=== PATIENT | male | born 1950 | race Caucasian/White ===

== ENCOUNTER 2022-02-02 17:54 | Inpatient (IN) ==
[2022-02-02] MEDS ORDERED: SUCCINYLCHOLINE CHLORIDE 20 MG/ML 10 ML VIAL IV ONE (17:56)
[2022-02-02] MEDS ORDERED: RAPID SEQUENCE INDUCTION BAG ONE (17:58)
[2022-02-02] MEDS ORDERED: LORazepam 2 MG/1 ML VIAL ONE (17:59)
[2022-02-02] MEDS ORDERED: SODIUM BICARB 8.4% INJ 50 MEQ/50 ML SYR IV ONE (17:59)
[2022-02-02] MEDS ORDERED: ATROPINE SULFATE 0.1 MG/ML 5ML SYR IV ONE (18:04)
[2022-02-02] MEDS ORDERED: VECURONIUM BROMIDE 10 MG VIAL IV ONE (18:04)
[2022-02-02] MEDS ORDERED: SODIUM CHLORIDE 0.9% 1000ML 1,000 ML IV STA (18:11)
[2022-02-02 18:19] LABS: iSTAT Creatinine 1.4 mg/dl (0.6-1.3); iSTAT Hemoglobin 14.6 g/dl (14.0-18.0); iSTAT Ionized Calcium 1.16 mmol/l (1.12-1.32); iSTAT Potassium 4.2 mmol/L (3.3-5.0)
[2022-02-02] MEDS ORDERED: STAT IV Infusion **Titration per Protocol STA ×5 (18:29→21:36)
[2022-02-02] MEDS ORDERED: fentaNYL citrate 100 MCG/2 ML VIAL ONE (18:30)
[2022-02-02] MEDS ORDERED: niCARdipine HCL INJ 2.5 MG/ML 10 ML AMP ONE (18:30)
[2022-02-02] MEDS ORDERED: HEPARIN (PORCINE) 1000 UNIT/ML 10 ML (CATH LAB USE ONLY) ONE ×2 (18:30→19:17)
[2022-02-02] MEDS ORDERED: MIDAZOLAM HCL 1 MG/ML 2ML VIAL ONE (18:30)
[2022-02-02] MEDS ORDERED: NITROGLYCERIN/D5W 100MCG/ML 20ML SYR ONE (18:31)
[2022-02-02 18:33] LABS: Hemoglobin 15.3 g/dL (14.0-18.0); Mean Corpuscular Hemoglobin 33.4 pg (25-34); Mean Corpuscular Hgb Conc 34.8 g/dL (32-36); Mean Corpuscular Volume 96.1 fL (80-100); Mean Platelet Volume 10.6 fL (7.4-10.4); Platelet Count 248 K/uL (130-400); RDW Coefficient of Variation 13.5 % (11.5-14.5); RDW Standard Deviation 47.3 fL (36.4-46.3); Red Blood Count 4.58 M/uL (4.7-6.1); White Blood Count 17.12 K/uL (4.8-10.8)
--- NOTE | 2022-02-02 18:39 | XRay Report ---
SINGLE VIEW CHEST CLINICAL HISTORY: Atypical chest pain. CODE BLUE. FINDINGS: An AP, portable, supine chest radiograph is obtained No prior studies are available for allison palomares at the time of dictation. An endotracheal tube has been placed. The tip projects approximatel y 4.5 cm above the maya. A left subclavian central venous catheter is in place. The tip projects ov er the SVC. The heart is mildly enlarged noting atherosclerotic calcification of the thoracic aorta. There is pulmonary vascular congestion. Mild bilateral airspace opacities likely represent pulmonary edema. No large pleural effusion or pneumothorax is seen. The skeletal structures are osteopenic. The bony thorax is grossly intact. An indeterminant round density projects over the left axilla. This ma y be external to the patient. IMPRESSION: 1. An endotracheal tube has been placed as above. A central venous catheter is also in place. 2. Cardiomegaly with pulmonary vascular congestion. 3. Bilateral airspace opacities likely represent pulmonary edema. Clinical correlation will be requir ed. ACT 112: Negative or not required by law. Electronically signed by: Rahul Culver M.D. 02/02/2022 6:37 PM
[2022-02-02 18:42] LABS: Partial Thromboplastin Ratio 0.9; Partial Thromboplastin Time 26.1 Seconds (21.0-31.0); Prothrombin Time 10.8 Seconds (9.0-12.0)
--- NOTE | 2022-02-02 18:47 | Emergency Department Note ---
History of Present Illness General Chief complaint: Cardiac Arrest/CPR Stated complaint: cardiac arrest History of Present Illness 71-year-old male presents to the ED with a chief complaint of cardiac arrest. The patient was reportedly found down by bystanders in front of a local alf. He was not a resident there. The patient had CPR started shortly after he was found down. CPR was in progress for about 11 minutes prior to EMS arrival. During EMS interaction, he did require 1 defibrillation and 2 mg of IV epinephrine and ROSC was achieved. He required a second defibrillation in route and was given 150 mg IV amiodarone by EMS. He arrives with a pulse and blood pressure. He is not intubated. They are bagging him with a [id number]. No additional information is available. Past history is unknown. His license states that he is from the [facility]. Past Med/Surg History Social History Smoking Status: Unknown if ever smoked Feels Safe at Home: Yes Review of Systems Unobtainable due to cognitive status and Unobtainable due to endotracheal tube Physical Exam Vital Signs Vital Signs - 24 hr 02/02/22 17:47 02/02/22 17:55 02/02/22 18:05 Temperature 36 C L Temperature Source Pyle Cath ( Temp Sensing) Pulse Rate 43 L 36 L Pulse Rate from SpO2 Sensor Respiratory Rate 20 24 Blood Pressure 79/59 L Blood Pressure Mean 65 Blood Pressure Position Lying Pulse Oximetry 93 Oxygen Delivery Method Mechanical Vent Mechanical Vent Fraction of Inspired Oxygen Sepsis Recent Fever Within 48 Hours No Sepsis New/Unexplained Change in Mental Status N/A Sepsis Action Taken by Nursing No Action Required End-Tidal CO2 02/02/22 18:06 02/02/22 18:10 02/02/22 18:11 Temperature Temperature Source Pulse Rate 53 L 85 Pulse Rate from SpO2 Sensor 62 Respiratory Rate 20 20 Blood Pressure 79/59 L 198/130 H Blood Pressure Mean 65 152 Blood Pressure Position Pulse Oximetry 100 Oxygen Delivery Method Mechanical Vent Fraction of Inspired Oxygen Sepsis Recent Fever Within 48 Hours Sepsis New/Unexplained Change in Mental Status Sepsis Action Taken by Nursing End-Tidal CO2 31 02/02/22 18:15 02/02/22 18:16 02/02/22 18:20 Temperature Temperature Source Pulse Rate 53 L 48 L 94 H Pulse Rate from SpO2 Sensor 97 H Respiratory Rate 25 H 18 24 Blood Pressure 108/64 148/97 H Blood Pressure Mean 78 114 Blood Pressure Position Pulse Oximetry 99 Oxygen Delivery Method Fraction of Inspired Oxygen Sepsis Recent Fever Within 48 Hours Sepsis New/Unexplained Change in Mental Status Sepsis Action Taken by Nursing End-Tidal CO2 31 26 49 02/02/22 18:25 02/02/22 18:30 02/02/22 18:35 Temperature Temperature Source Pulse Rate 96 H 99 H 104 H Pulse Rate from SpO2 Sensor 97 H 95 H 104 H Respiratory Rate 24 24 24 Blood Pressure 147/100 H 147/104 H 155/109 H Blood Pressure Mean 115 118 124 Blood Pressure Position Pulse Oximetry 96 95 93 Oxygen Delivery Method Fraction of Inspired Oxygen Sepsis Recent Fever Within 48 Hours Sepsis New/Unexplained Change in Mental Status Sepsis Action Taken by Nursing End-Tidal CO2 37 37 38 02/02/22 18:40 02/02/22 18:59 Temperature Temperature Source Pulse Rate 98 H 100 H Pulse Rate from SpO2 Sensor 99 H Respiratory Rate 24 24 Blood Pressure 168/111 H Blood Pressure Mean 130 Blood Pressure Position Pulse Oximetry 92 97 Oxygen Delivery Method Fraction of Inspired Oxygen 40 Sepsis Recent Fever Within 48 Hours Sepsis New/Unexplained Change in Mental Status Sepsis Action Taken by Nursing End-Tidal CO2 37 38 CONSTITUTIONAL/VITAL SIGNS: Reviewed / noted above. GENERAL: Non-toxic in appearance. INTEGUMENTARY: Warm, dry, and [place]. HEAD: Normocephalic. ENT/OROPHARYNX: The patient has frothy mucous the airway. RESPIRATORY: Clear to auscultation bilaterally. No increased work of breathing. CARDIOVASCULAR: Regular rate and rhythm. Femoral pulse present. GI/ABDOMEN: Soft EXTREMITIES: No obvious trauma. NEUROLOGICAL: Prior to sedation and paralyzation, the patient was biting down on the endotracheal tube and breathing spontaneously. Moves extremities minimally. MUSCULOSKELETAL: Normally developed. TRIAGE NURSING DOCUMENTATION REVIEWED. Procedures Intubation Time out performed: Yes sedative: other (Ativan 2 mg IV) Mg Given: 2 paralytic: Succinylcholine Mg Given: 100 Laryngoscope: fiber optic video scope Assist Device Used: fiber optic device ET Tube Size: 7.5 ET Tube Uncuffed: No Tube Secured Depth (cm): 22 Tube Secured Location: lips Tube Placement Confirmation: visualized tube passing through cords, equal breath sounds bilaterally, no breath sounds over epigastrium and confirmation by capnometry Patient Tolerated Procedure: well and no complications Intubation Complications: none Course Administered Medications Epinephrine HCl () 4 mg in 254 mls @ 6.157 mls/hr IV .Q24H OLIVE; Protocol Stop: 03/04/22 18:59 Last Titration: 02/02/22 18:18 Dose: 0.04 mcg/kg/min, 12.3 mls/hr Documented by: [id number] Admin: 02/02/22 18:15 Dose: 0.01 mcg/kg/min, 3.1 mls/hr Documented by: [id number] Cosigned by: [id number] Discontinued Medications Atropine Sulfate (Atropine Sulfate 0.1 Mg/Ml 5ml Syr) Confirm Administered Dose 0.5 mg IV .STK-MED ONE Stop: 02/02/22 18:05 Last Admin: 02/02/22 18:52 Dose: Not Given Documented by: [id number] Sodium Chloride (Nss 1000ml) 1,000 mls @ 999 mls/hr IV .Q1H1M STA Stop: 02/02/22 19:11 Last Admin: 02/02/22 18:11 Dose: 999 mls/hr Documented by: [id number] Lorazepam (Lorazepam 2 Mg/1 Ml Vial) Confirm Administered Dose 2 mg .ROUTE .STK- MED ONE Stop: 02/02/22 18:00 Last Admin: 02/02/22 18:01 Dose: 2 mg Documented by: [id number] Miscellaneous (Rapid Sequence Induction Bag) Confirm Administered Dose 1 ea .ROUTE .STK-MED ONE Stop: 02/02/22 17:59 Last Admin: 02/02/22 18:52 Dose: 1 ea Documented by: [id number] Vecuronium Godwin (Vecuronium Godwin 10 Mg Vial) Confirm Administered Dose 10 mg IV .STK-MED ONE Stop: 02/02/22 18:05 Last Admin: 02/02/22 18:16 Dose: 10 mg Documented by: [id number] Cosigned by: [id number] Critical Care Time Critical Care Time: Yes Total Critical Care Time: 45 I have personally spent 45 minutes of critical care time in the direct management of this patient. This includes bedside care, interpretation of diagnostic studies, and testing, discussion with consultants, patient, and family members, and other required patient management activities. This 45 minutes is in excess of all separately billable procedures. Medical Decision Making Differential Diagnosis Differential includes acute cardiac dysrhythmia, microinfarction, CVA, TIA, dehydration, anemia, electrolyte disturbance, seizure, trauma, intracranial bleeding, acute vascular catastrophe, thoracic aortic dissection, PE, abdominal aortic aneurysm rupture, infection, hypoglycemia, overdose, trauma. Medical Records Attestation: I reviewed the patient's medical records. Home Medications Current Medication List: was personally reviewed by me Laboratory Data Attestation: I reviewed the patient's lab results. Result diagrams: 02/02/22 17:25 02/02/22 17:25 Lab Results 02/02/22 02/02/22 02/02/22 Range/Units 17:25 17:25 17:25 WBC 17.12 H (4.8-10.8) K/uL RBC 4.58 L (4.7-6.1) M/uL Hgb 15.3 (14.0-18.0) g/dL POC Hgb (14.0-18.0) g/dl Hct 44.0 (42-52) % POC Hct (42-52) % MCV 96.1 (80-100) fL MCH 33.4 (25-34) pg MCHC 34.8 (32-36) g/dL RDW Std Deviation 47.3 H (36.4-46.3) fL RDW Coeff of Vilma 13.5 (11.5-14.5) % Plt Count 248 (130-400) K/uL MPV 10.6 H (7.4-10.4) fL Immature Gran % (Auto) 0.7 % Neut % (Auto) 40.2 % Lymph % (Auto) 48.1 % [place] % (Auto) 7.5 % Eos % (Auto) 3.2 % Baso % (Auto) 0.3 % Neut # (Auto) 6.89 H (1.4-6.5) K/uL Lymph # (Auto) 8.24 H (1.2-3.4) K/uL [place] # (Auto) 1.28 H (0.11-0.59) K/uL Eos # (Auto) 0.54 H (0-0.5) K/uL Baso # (Auto) 0.05 (0-0.2) K/uL Immature Gran # (Auto) 0.12 H (0.00-0.02) K/uL PT 10.8 (9.0-12.0) Seconds INR 1.0 (0.9-1.1) APTT 26.1 (21.0-31.0) Seconds PTT Ratio 0.9 POC Sodium (135-144) mmol/L Sodium (136-145) mmol/L POC Potassium (3.3-5.0) mmol/L Potassium (3.5-5.1) mmol/L POC Chloride (101-112) mmol/L Chloride (98-107) mmol/L Carbon Dioxide (21-32) mmol/L POC Total CO2 (24-31) mmol/L Anion Gap (3-11) POC Anion Gap (16-25) mmol/L POC BUN (7-18) mg/dl BUN (6-23) mg/dl Creatinine (0.6-1.4) mg/dl POC Creatinine (0.6-1.3) mg/dl Est Cr Clr Drug Dosing ml/min Est GFR ( Amer) ml/min Est GFR (Non-Af Amer) ml/min BUN/Creatinine Ratio (10-20) Glucose (70-99(Fasting)) mg/dl POC Glucose (other) (70-99) mg/dl Lactate (0.4-2.0) mmol/L Calcium (8.5-10.1) mg/dl POC Ioniz Calcium Michaela (1.12-1.32) mmol/l Magnesium 2.2 (1.7-2.4) mg/dl Total Bilirubin (0.2-1.0) mg/dl AST (13-39) U/L ALT (7-52) U/L Alkaline Phosphatase (34-104) U/L Troponin I High Sens 182.5 H* (0-20) pg/ml Total Protein (6.0-8.3) gm/dl Albumin (3.4-5.0) gm/dl Globulin (2.5-4.0) gm/dl Albumin/Globulin Ratio (0.9-2) Lipase (11-82) U/L SARS-CoV-2, RNA, NAAT (NEGATIVE) Blood Type Antibody Screen 02/02/22 02/02/22 02/02/22 Range/Units 17:25 17:25 18:05 WBC (4.8-10.8) K/uL RBC (4.7-6.1) M/uL Hgb (14.0-18.0) g/dL POC Hgb 14.6 (14.0-18.0) g/dl Hct (42-52) % POC Hct 43 (42-52) % MCV (80-100) fL MCH (25-34) pg MCHC (32-36) g/dL RDW Std Deviation (36.4-46.3) fL RDW Coeff of Vilma (11.5-14.5) % Plt Count (130-400) K/uL MPV (7.4-10.4) fL Immature Gran % (Auto) % Neut % (Auto) % Lymph % (Auto) % [place] % (Auto) % Eos % (Auto) % Baso % (Auto) % Neut # (Auto) (1.4-6.5) K/uL Lymph # (Auto) (1.2-3.4) K/uL [place] # (Auto) (0.11-0.59) K/uL Eos # (Auto) (0-0.5) K/uL Baso # (Auto) (0-0.2) K/uL Immature Gran # (Auto) (0.00-0.02) K/uL PT (9.0-12.0) Seconds INR (0.9-1.1) APTT (21.0-31.0) Seconds PTT Ratio POC Sodium 141 (135-144) mmol/L Sodium 138 (136-145) mmol/L POC Potassium 4.2 (3.3-5.0) mmol/L Potassium 4.3 (3.5-5.1) mmol/L POC Chloride 101 (101-112) mmol/L Chloride 104 (98-107) mmol/L Carbon Dioxide 22 (21-32) mmol/L POC Total CO2 26 (24-31) mmol/L Anion Gap 12 H (3-11) POC Anion Gap 18.0 (16-25) mmol/L POC BUN 11 (7-18) mg/dl BUN 12 (6-23) mg/dl Creatinine 1.65 H (0.6-1.4) mg/dl POC Creatinine 1.4 H (0.6-1.3) mg/dl Est Cr Clr Drug Dosing 43.8 ml/min Est GFR ( Amer) 47.0 ml/min Est GFR (Non-Af Amer) 40.6 ml/min BUN/Creatinine Ratio 7.3 L (10-20) Glucose 193 H (70-99(Fasting)) mg/dl POC Glucose (other) 138 H (70-99) mg/dl Lactate (0.4-2.0) mmol/L Calcium 8.6 (8.5-10.1) mg/dl POC Ioniz Calcium Michaela 1.16 (1.12-1.32) mmol/l Magnesium (1.7-2.4) mg/dl Total Bilirubin 0.4 (0.2-1.0) mg/dl AST 52 H (13-39) U/L ALT 24 (7-52) U/L Alkaline Phosphatase 31 L (34-104) U/L Troponin I High Sens (0-20) pg/ml Total Protein 6.0 (6.0-8.3) gm/dl Albumin 3.5 (3.4-5.0) gm/dl Globulin 2.5 (2.5-4.0) gm/dl Albumin/Globulin Ratio 1.4 (0.9-2) Lipase 26 (11-82) U/L SARS-CoV-2, RNA, NAAT (NEGATIVE) Blood Type A Positive Antibody Screen NEGATIVE 02/02/22 02/02/22 Range/Units 18:40 18:43 WBC (4.8-10.8) K/uL RBC (4.7-6.1) M/uL Hgb (14.0-18.0) g/dL POC Hgb (14.0-18.0) g/dl Hct (42-52) % POC Hct (42-52) % MCV (80-100) fL MCH (25-34) pg MCHC (32-36) g/dL RDW Std Deviation (36.4-46.3) fL RDW Coeff of Vilma (11.5-14.5) % Plt Count (130-400) K/uL MPV (7.4-10.4) fL Immature Gran % (Auto) % Neut % (Auto) % Lymph % (Auto) % [place] % (Auto) % Eos % (Auto) % Baso % (Auto) % Neut # (Auto) (1.4-6.5) K/uL Lymph # (Auto) (1.2-3.4) K/uL [place] # (Auto) (0.11-0.59) K/uL Eos # (Auto) (0-0.5) K/uL Baso # (Auto) (0-0.2) K/uL Immature Gran # (Auto) (0.00-0.02) K/uL PT (9.0-12.0) Seconds INR (0.9-1.1) APTT (21.0-31.0) Seconds PTT Ratio POC Sodium (135-144) mmol/L Sodium (136-145) mmol/L POC Potassium (3.3-5.0) mmol/L Potassium (3.5-5.1) mmol/L POC Chloride (101-112) mmol/L Chloride (98-107) mmol/L Carbon Dioxide (21-32) mmol/L POC Total CO2 (24-31) mmol/L Anion Gap (3-11) POC Anion Gap (16-25) mmol/L POC BUN (7-18) mg/dl BUN (6-23) mg/dl Creatinine (0.6-1.4) mg/dl POC Creatinine (0.6-1.3) mg/dl Est Cr Clr Drug Dosing ml/min Est GFR ( Amer) ml/min Est GFR (Non-Af Amer) ml/min BUN/Creatinine Ratio (10-20) Glucose (70-99(Fasting)) mg/dl POC Glucose (other) (70-99) mg/dl Lactate 6.3 H* (0.4-2.0) mmol/L Calcium (8.5-10.1) mg/dl POC Ioniz Calcium Michaela (1.12-1.32) mmol/l Magnesium (1.7-2.4) mg/dl Total Bilirubin (0.2-1.0) mg/dl AST (13-39) U/L ALT (7-52) U/L Alkaline Phosphatase (34-104) U/L Troponin I High Sens (0-20) pg/ml Total Protein (6.0-8.3) gm/dl Albumin (3.4-5.0) gm/dl Globulin (2.5-4.0) gm/dl Albumin/Globulin Ratio (0.9-2) Lipase (11-82) U/L SARS-CoV-2, RNA, NAAT NEGATIVE (NEGATIVE) Blood Type Antibody Screen Imaging Data My Impression: Chest x-ray: Per my interpretation there is no pneumothorax. No pneumonia. Endotracheal tube is in good position. Left subclavian line position is in the superior vena cava Radiologist's Impression: Chest X-Ray 02/02/22 18:11 SINGLE VIEW CHEST CLINICAL HISTORY: Atypical chest pain. CODE BLUE. FINDINGS: An AP, portable, supine chest radiograph is obtained No prior studies are available for comparison at the time of dictation. An endotracheal tube has been placed. The tip projects approximately 4.5 cm above the maya. A left subclavian central venous catheter is in place. The tip projects over the SVC. The heart is mildly enlarged noting atherosclerotic calcification of the thoracic aorta. There is pulmonary vascular congestion. Mild bilateral airspace opacities likely represent pulmonary edema. No large pleural effusion or pneumothorax is seen. The skeletal structures are osteopenic. The bony thorax is grossly intact. An indeterminant round density projects over the left axilla. This may be external to the patient. IMPRESSION: 1. An endotracheal tube has been placed as above. A central venous catheter is also in place. 2. Cardiomegaly with pulmonary vascular congestion. 3. Bilateral airspace opacities likely represent pulmonary edema. Clinical correlation will be required. ACT 112: Negative or not required by law. Electronically signed by: Rahul Culver M.D. 02/02/2022 6:37 PM ECG Data Attestation: I personally reviewed and interpreted this ECG as follows: Additional Comments: Twelve-lead EKG: Per my interpretation shows a sinus rhythm with a rate around 80. The patient has deep ST depressions and T wave inversions in the anterior lateral leads. MDM Narrative 71-year-old male found down by bystanders. Bystander CPR followed by EMS defibrillation x2, 2 mg of IV epinephrine and 150 mg of IV amiodarone by EMS. Endotracheal intubation here. Left subclavian line by Dr. Son here. Pyle catheter and NG tube placed by nursing staff. The patient received 1 mg of IV epinephrine here for bradycardia and diminished pulses. This improved his blood pressure and heart rate. He was placed on an epinephrine drip. Cooling blanket applied. Heart alert called. I spoke with Dr. Rucker about the patient. Patient went to the [facility] Services Instructor. Impression & Plan Cardiac arrest Discharge Plan Visit Data Chief Complaint: Cardiac Arrest/CPR Stated Complaint: cardiac arrest ED Provider: Jerrod Peterson Discharge Problem: Cardiac arrest Patient Disposition: Admitted As Inpatient
--- NOTE | 2022-02-02 18:50 | Cardiology Consultation ---
Date of Consultation February 02, 2022 Assessment & Plan (1) Cardiac arrest: 2. Posterior Acute SC 3. Cardiogenic shock Presentation consistent with Posterior STEMI and recommend proceeding with emergent cardiac catheterization and likely primary PCI. Further recommendations pending findings of coronary angiography. History of Present Illness History of Present Illness 71-year-old man here after out of hospital cardiac arrest with initial ECG is concerning for ACS. Patient's prior past medical history unknown. Per report was walking his dog and collapsed, found down. Received bystander CPR before EMS (11 minutes). ROSC after epi, 2 shocks. Additional shock en route, arrived to ED with pulse/blood pressure. Intubated in ED. Hypotensive/bradycardic after and received epi bolus x1 before started on Epi in fusion ( MAP >100). Seen post paralytics for intubation. ECGs: 1743 with EMS: Sinus tachycardia, right bundle branch block, deep ST depressions in V2 through V5 consistent with posterior Acute SC ECG in ED: sinus rhythm, RBBB, deep anterior ST depressions consistent with posterior SC Patient History Social History Smoking Status: Current every day smoker Second Hand Exposure: Yes; Do You Dip or Chew Tobacco: No; Tobacco Cessation Education Requested by Patient: No Hx Alcohol Use: Yes Alcohol type: beer Hx Substance Use: No Preferred Language: Gabonese Director Of Group Sales Required: No Beliefs That Will Affect Care: None Current Living Situation: Spouse Current Living Situation Comment: [place] Feels Safe at Home: Yes Assistive Devices: None Assistive Devices Comment: none previous to admission Review of Systems Review of Systems: Unobtainable due to endotracheal tube and Unobtainable due to reduced consciousness Physical Exam Physical Exam: General: Intubated HEENT: Sclerae anicteric, pupils dilated, responsive Lungs: Clear to auscultation anteriorly Cardiac: Regular rate no murmurs. Vascular: 2+ radial Abdomen: Soft, Extremities: Well perfused, no peripheral edema Results & Data ([facility]) Vital Signs (Past 12 Hours) Vital Signs Temp Pulse Resp BP Pulse Ox 02/02/22 18:40 98 H 24 168/111 H 92 02/02/22 18:35 104 H 24 155/109 H 93 02/02/22 18:30 99 H 24 147/104 H 95 02/02/22 18:25 96 H 24 147/100 H 96 02/02/22 18:20 94 H 24 148/97 H 99 02/02/22 18:16 48 L 18 108/64 02/02/22 18:15 53 L 25 H 02/02/22 18:10 85 20 198/130 H 02/02/22 18:06 53 L 20 79/59 L 100 02/02/22 18:05 36 L 24 02/02/22 17:47 96.8 F L 43 L 20 79/59 L 93 PG Care Time/CCT Total # of Minutes Spent Total Time Spent with Patient: Total time spent is greater than 50% in coordination of care (as documented) at patient's floor/unit and/or counseling patient: Coding Level of Care Code 30292 Initial Inpt Care Lvl 3 Diagnoses Cardiac arrest I46.9
[2022-02-02] MEDS ORDERED: NOREPINEPHRINE BITARTRATE 1 MG/ML 4 ML VIAL (CATH LAB USE ONLY) ONE (18:58)
[2022-02-02] MEDS ORDERED: EPINEPHrine/NSS 4 MG/254 ML BAG IV SCH ×2 (19:00→21:13)
[2022-02-02 19:08] LABS: Magnesium 2.2 mg/dl (1.7-2.4)
[2022-02-02] MEDS ORDERED: AMIODARONE 360MG / 200ML D5W (CATH LAB USE ONLY) ONE (19:16)
[2022-02-02] MEDS ORDERED: AMIODARONE 150MG / 100ML D5W (CATH LAB USE ONLY) ONE (19:16)
[2022-02-02 19:24] LABS: Potassium 4.3 mmol/L (3.5-5.1); Troponin I High Sensitivity 182.5 pg/ml (0-20)
[2022-02-02 19:25] LABS: Albumin Globulin Ratio 1.4 (0.9-2); Albumin Level 3.5 gm/dl (3.4-5.0); BUN Creatinine Ratio 7.3 (10-20); Bilirubin,Total 0.4 mg/dl (0.2-1.0); Calcium 8.6 mg/dl (8.5-10.1); Creatinine Clr Calc Pharmacy 43.8 ml/min; Est GFR (Non-African American) 40.6 ml/min; Globulin 2.5 gm/dl (2.5-4.0)
[2022-02-02 19:27] LABS: Basophils # (auto) 0.05 K/uL (0-0.2); Basophils % (auto) 0.3 %; Eosinophils # (auto) 0.54 K/uL (0-0.5); Eosinophils % (auto) 3.2 %; Immature Granulocytes # (auto) 0.12 K/uL (0.00-0.02); Immature Granulocytes % (auto) 0.7 %; Lymphocytes # (auto) 8.24 K/uL (1.2-3.4); Lymphocytes % (auto) 48.1 %; Monocytes # (auto) 1.28 K/uL (0.11-0.59); Monocytes % (auto) 7.5 %; Neutrophils # (auto) 6.89 K/uL (1.4-6.5); Neutrophils % (auto) 40.2 %
[2022-02-02] MEDS ORDERED: DOBUTamine 500MG / 250ML D5W (CATH LAB USE ONLY) ONE (19:58)
[2022-02-02 20:06] LABS: iSTAT Arterial Blood Gas HCO3 28 meg/L (19-24); iSTAT Arterial Blood Gas pCO2 55 mmHg (35-46); iSTAT Arterial Blood Gas pH 7.31 (7.35-7.45); iSTAT Arterial Blood Gas pO2 < 32 mmHg (80-95); iSTAT Carbon Dioxide 29 mmol/L (24-31)
[2022-02-02 20:06] LABS: iSTAT Arterial Blood Gas HCO3 25 meg/L (19-24); iSTAT Arterial Blood Gas pCO2 57 mmHg (35-46); iSTAT Arterial Blood Gas pH 7.25 (7.35-7.45); iSTAT Arterial Blood Gas pO2 215 mmHg (80-95); iSTAT Carbon Dioxide 27 mmol/L (24-31)
[2022-02-02] MEDS ORDERED: TICAGRELOR 90 MG TAB ONE (20:18)
[2022-02-02] MEDS ORDERED: 0.2 MICRON FILTER SET 1 EA IV ONE (20:23)
[2022-02-02] MEDS ORDERED: AMIODARONE / D5W 360 MG/200 ML BAG IV ONE (20:24)
[2022-02-02] MEDS: NOREPINEPHRINE/D5W 8 MG/508 ML BAG IV SCH (20:30)
[2022-02-02] MEDS ORDERED: DOBUTamine / D5W 500 MG/250 ML BAG IV SCH (20:30)
[2022-02-02] MEDS: fentaNYL citrate 2,500 MCG/250 ML BAG IV SCH (20:30)
--- NOTE | 2022-02-02 20:30 | Post Operative Brief Note ---
Cardiology Brief Post Op Date of Surgery February 02, 2022 Pre & Post Diagnosis Out of hospital cardiac arrest Posterior STEMI Cardiogenic shock Procedure Coronary angiography Left and right heart catheterization PCI to proximal circumflex Left radial artery A-line placement Switchboard Receptionist Hamlet Rucker MD Photo Mask Cleaner [place] Estimated Blood Loss 15 Findings See Below Acute 100% proximal circumflex occlusion Successful PCI with single drug-eluting stent (2.75 x 15 mm [place]) postdilated with 3.25 NC). Drains Other Complications none Disposition Disposition: Surgical ICU Overlapping Procedure I was present for: the critical portions of procedure. I was immediately available: during the entire case. Back up surgeon: was not required during procedure.
--- NOTE | 2022-02-02 20:33 | CT Scan Report ---
CT SCAN OF THE BRAIN WITHOUT IV CONTRAST CLINICAL HISTORY: Cardiac arrest. COMPARISON STUDY: No priors. TECHNIQUE: Unenhanced axial CT scan of the brain is performed from the vertex to the skull base. A do se lowering technique was utilized adhering to the principles of ALARA. The Examination is degraded b y motion artifact. The patient was scanned twice in an effort to improve image quality. The examinati on is also degraded by residual IV contrast throughout the intracranial vessels. CT DOSE: 1989.19 mGy.cm FINDINGS: An endotracheal tube is noted on the grinder set up operator surface tomogram. Brain parenchyma: There is age-related involutional change noting minimal microangiopathic disease. T here is evidence of hemorrhage, mass effect, or acute territorial ischemia by CT criteria. [place]-white matter differentiation is preserved. No extra-axial fluid collection is seen. Ventricles, sulci, cisterns: Prominent secondary to involutional change. Intracranial vasculature: There is atherosclerotic calcification of the cavernous carotid and vertebr al arteries. Calvarium: Unremarkable. Sinuses and mastoids: There is complete opacification of the right maxillary antrum. The remaining pa ranasal sinuses are clear. There is a large right mastoid effusion. The left mastoid air cells are we ll pneumatized. Orbits: The bony orbits are grossly intact. IMPRESSION: There is no evidence of hemorrhage, mass effect, or acute territorial ischemia by CT karen griffin. ACT 112: Negative or not required by law. Electronically signed by: Rahul Culver M.D. 02/02/2022 8:31 PM
[2022-02-02] MEDS ORDERED: ACETAMINOPHEN 1,000 MG/100 ML VIAL IV PRN (20:42)
[2022-02-02] MEDS ORDERED: MIDAZOLAM BOLUS FROM BAG IV PRN (20:42)
[2022-02-02] MEDS ORDERED: MIDAZOLAM HCL 125MG/250ML D5W ONE (20:43)
[2022-02-02] MEDS ORDERED: fentaNYL citrate 2,500 MCG/250 ML BAG IV ONE (20:43)
[2022-02-02] MEDS ORDERED: MIDAZOLAM HCL 125 MG/250 ML BAG IV SCH (20:45)
--- NOTE | 2022-02-02 20:57 | History & Physical Report ---
Date of Service February 02, 2022 Assessment & Plan (1) Cardiac arrest: Plan: Out of hospital cardiac arrest Status post ROSC Secondary to posterior STEMI status post PCI Respiratory failure secondary to above Status post intubation Cardiogenic shock/CHF BP currently stable off pressor Rx ARF, unknown duration Hyperglycemia rule out DM Ongoing tobacco abuse ICU Vent management and hypothermia protocol as per ICU team Management of cardiac issues as per cardiology TTE, strict I/Os, daily weights, CHF education for CHF Baseline UA Check hemoglobin A1c Nicotine patch as needed DVT prophylaxis. Heparin subcu GI prophylaxis. Famotidine Full code Attempted to contact patient's Ms. Lorelei Viramontes ([phone]) over the phone to obtain additional history and to update her on plan of care. No answer. Voice message left for call back. Text document was generated using [employer] voice recognition software. It may contain grammatical or spelling errors. Kindly contact undersigned for clarification of any documentation item in question. Admission and Anticipated Discharge Date Admission Date: February 02, 2022 History of Present Illness Chief Complaint: Cardiac arrest as per records Primary Care Provider: NO PCP History obtained from records and fern gatherer. Unable to obtain history from patient secondary to intubated state. Medical history significant for ongoing tobacco abuse. Patient was found by bystanders in front of a local shelter. 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 CPR done by bystanders. Upon EMS arrival, defibrillation done and epinephrine given resulting in ROSC. Amiodarone and second defibrillation done en route to the ER. Patient subsequently intubated at the ER. Patient subsequently intubated at the ER. Epinephrine drip initiated for hypotension and bradycardia. Hypothermia protocol initiated at the ER. Heart alert with suspicion of posterior STEMI on EKG. Subsequent cardiac cath and PCI done with note of acute 100% proximal circumflex occlusion. Patient currently in the ICU. Medical History as above Surgical History, Family History, Personal/Social history : Could not be obtained in detail secondary to intubated state Past Med/Surg History Social History Smoking Status: Current every day smoker Second Hand Exposure: Yes; Do You Dip or Chew Tobacco: No; Tobacco Cessation Education Requested by Patient: No Hx Alcohol Use: Yes Alcohol type: beer Hx Substance Use: No Preferred Language: Italian Supervisor Color Paste Mixing Required: No Beliefs That Will Affect Care: None Current Living Situation: Spouse Current Living Situation Comment: [place] Feels Safe at Home: Yes Assistive Devices: None Assistive Devices Comment: none previous to admission Review of Systems Review of Systems: Could not be reliably obtained secondary to intubated state Physical Exam Physical Exam: GENERAL: uncomfortable, minimal respiratory distress SKIN: Normal color, warm HEENT: [place] palpebral conjunctivae, no ptosis, dry buccal mucosa, intubated NECK : Supple, no tenderness CHEST : Decreased breath sounds, expiratory wheezes, no tenderness HEART : RRR, no obvious murmurs ABDOMEN: Some distention, nontender EXTREMITIES : No LE swelling/tenderness, no other conspicuous deformities noted NEUROLOGIC : Restless, incoherent, no facial asymmetry, gait and stance not assessed Results & Data Results & Data ([facility]) Vital Signs (Past 12 Hours) Vital Signs Temp Pulse Resp BP Pulse Ox 02/02/22 20:43 94 H 29 H 94 02/02/22 18:59 100 H 24 97 02/02/22 18:40 98 H 24 168/111 H 92 02/02/22 18:35 104 H 24 155/109 H 93 02/02/22 18:30 99 H 24 147/104 H 95 02/02/22 18:25 96 H 24 147/100 H 96 02/02/22 18:20 94 H 24 148/97 H 99 02/02/22 18:16 48 L 18 108/64 02/02/22 18:15 53 L 25 H 02/02/22 18:10 85 20 198/130 H 02/02/22 18:06 53 L 20 79/59 L 100 02/02/22 18:05 36 L 24 02/02/22 17:47 36 C L 43 L 20 79/59 L 93 Laboratory Results Laboratory Results WBC 17.12 K/uL (4.8-10.8) H 02/02/22 17:25 RBC 4.58 M/uL (4.7-6.1) L 02/02/22 17:25 Hgb 15.3 g/dL (14.0-18.0) 02/02/22 17:25 POC Hgb 14.6 g/dl (14.0-18.0) 02/02/22 18:05 Hct 44.0 % (42-52) 02/02/22 17:25 POC Hct 43 % (42-52) 02/02/22 18:05 MCV 96.1 fL (80-100) 02/02/22 17: MCH 33.4 pg (25-34) 02/02/22 17: MCHC 34.8 g/dL (32-36) 02/02/22 17: RDW Std Deviation 47.3 fL (36.4-46.3) H 02/02/22 17: RDW Coeff of Vilma 13.5 % (11.5-14.5) 02/02/22 17: Plt Count 248 K/uL (130-400) 02/02/22 17: MPV 10.6 fL (7.4-10.4) H 02/02/22 17: Immature Gran % (Auto) 0.7 % 02/02/22 17: Neut % (Auto) 40.2 % 02/02/22 17: Lymph % (Auto) 48.1 % 02/02/22 17: [place] % (Auto) 7.5 % 02/02/22 17: Eos % (Auto) 3.2 % 02/02/22 17: Baso % (Auto) 0.3 % 02/02/22 17: Neut # (Auto) 6.89 K/uL (1.4-6.5) H 02/02/22 17: Lymph # (Auto) 8.24 K/uL (1.2-3.4) H 02/02/22 17:25 [place] # (Auto) 1.28 K/uL (0.11-0.59) H 02/02/22 17: Eos # (Auto) 0.54 K/uL (0-0.5) H 02/02/22 17:25 Baso # (Auto) 0.05 K/uL (0-0.2) 02/02/22 17: Immature Gran # (Auto) 0.12 K/uL (0.00-0.02) H 02/02/22 17: PT 10.8 Seconds (9.0-12.0) 02/02/22 17: INR 1.0 (0.9-1.1) 02/02/22 17: APTT 26.1 Seconds (21.0-31.0) 02/02/22 17:25 PTT Ratio 0.9 02/02/22 17:25 POC pH 7.31 (7.35-7.45) L 02/02/22 19:40 POC pCO2 55 mmHg (35-46) H 02/02/22 19:40 POC pO2 < 32 mmHg (80-95) L 02/02/22 19:40 POC HCO3 28 tirso/L (19-24) H 02/02/22 19:40 POC Total CO2 29 mmol/L (24-31) 02/02/22 19:40 POC Base Excess 1.0 tirso/L (-9-1.8) 02/02/22 19:40 POC ABG O2 Sat 51.0 % (90-95) L 02/02/22 19:40 POC Sodium 141 mmol/L (135-144) 02/02/22 18:05 Sodium 138 mmol/L (136-145) 02/02/22 17:25 POC Potassium 4.2 mmol/L (3.3-5.0) 02/02/22 18:05 Potassium 4.3 mmol/L (3.5-5.1) 02/02/22 17:25 POC Chloride 101 mmol/L (101-112) 02/02/22 18:05 Chloride 104 mmol/L (98-107) 02/02/22 17:25 Carbon Dioxide 22 mmol/L (21-32) 02/02/22 17:25 POC Total CO2 26 mmol/L (24-31) 02/02/22 18:05 Anion Gap 12 (3-11) H 02/02/22 17:25 POC Anion Gap 18.0 mmol/L (16-25) 02/02/22 18:05 POC BUN 11 mg/dl (7-18) 02/02/22 18:05 BUN 12 mg/dl (6-23) 02/02/22 17:25 Creatinine 1.65 mg/dl (0.6-1.4) H 02/02/22 17:25 POC Creatinine 1.4 mg/dl (0.6-1.3) H 02/02/22 18:05 Est Cr Clr Drug Dosing 43.8 ml/min 02/02/22 17:25 Est GFR ( Amer) 47.0 ml/min 02/02/22 17:25 Est GFR (Non-Af Amer) 40.6 ml/min 02/02/22 17:25 BUN/Creatinine Ratio 7.3 (10-20) L 02/02/22 17:25 Glucose 193 mg/dl (70-99(Fasting)) H 02/02/22 17:25 POC Glucose (other) 138 mg/dl (70-99) H 02/02/22 18:05 Lactate 6.3 mmol/L (0.4-2.0) H* 02/02/22 18:40 Calcium 8.6 mg/dl (8.5-10.1) 02/02/22 17:25 POC Ioniz Calcium Michaela 1.16 mmol/l (1.12-1.32) 02/02/22 18:05 Magnesium 2.2 mg/dl (1.7-2.4) 02/02/22 17:25 Total Bilirubin 0.4 mg/dl (0.2-1.0) 02/02/22 17:25 AST 52 U/L (13-39) H 02/02/22 17:25 ALT 24 U/L (7-52) 02/02/22 17:25 Alkaline Phosphatase 31 U/L (34-104) L 02/02/22 17:25 Troponin I High Sens 182.5 pg/ml (0-20) H* 02/02/22 17:25 Total Protein 6.0 gm/dl (6.0-8.3) 02/02/22 17:25 Albumin 3.5 gm/dl (3.4-5.0) 02/02/22 17:25 Globulin 2.5 gm/dl (2.5-4.0) 02/02/22 17:25 Albumin/Globulin Ratio 1.4 (0.9-2) 02/02/22 17:25 Lipase 26 U/L (11-82) 02/02/22 17:25 SARS-CoV-2, RNA, NAAT NEGATIVE (NEGATIVE) 02/02/22 18:43 Blood Type A Positive 02/02/22 17:25 Antibody Screen NEGATIVE 02/02/22 17:25 Impressions Chest X-Ray 02/02/22 18:11 SINGLE VIEW CHEST CLINICAL HISTORY: Atypical chest pain. CODE BLUE. FINDINGS: An AP, portable, supine chest radiograph is obtained No prior studies are available for comparison at the time of dictation. An endotracheal tube has been placed. The tip projects approximately 4.5 cm above the maya. A left subclavian central venous catheter is in place. The tip projects over the SVC. The heart is mildly enlarged noting atherosclerotic calcification of the thoracic aorta. There is pulmonary vascular congestion. Mild bilateral airspace opacities likely represent pulmonary edema. No large pleural effusion or pneumothorax is seen. The skeletal structures are osteopenic. The bony thorax is grossly intact. An indeterminant round density projects over the left axilla. This may be external to the patient. IMPRESSION: 1. An endotracheal tube has been placed as above. A central venous catheter is also in place. 2. Cardiomegaly with pulmonary vascular congestion. 3. Bilateral airspace opacities likely represent pulmonary edema. Clinical correlation will be required. ACT 112: Negative or not required by law. Electronically signed by: Rahul Culver M.D. 02/02/2022 6:[address] 02/02/22 18:29 CT SCAN OF THE BRAIN WITHOUT IV CONTRAST CLINICAL HISTORY: Cardiac arrest. COMPARISON STUDY: No priors. TECHNIQUE: Unenhanced axial CT scan of the brain is performed from the vertex to the skull base. A dose lowering technique was utilized adhering to the principles of ALARA. The Examination is degraded by motion artifact. The patient was scanned twice in an effort to improve image quality. The examination is also degraded by residual IV contrast throughout the intracranial vessels. CT DOSE: 1989.19 mGy.cm FINDINGS: An endotracheal tube is noted on the prompt care rn tomogram. Brain parenchyma: There is age-related involutional change noting minimal microangiopathic disease. There is evidence of hemorrhage, mass effect, or acute territorial ischemia by CT criteria. [place]-white matter differentiation is preserved. No extra-axial fluid collection is seen. Ventricles, sulci, cisterns: Prominent secondary to involutional change. Intracranial vasculature: There is atherosclerotic calcification of the cavernous carotid and vertebral arteries. Calvarium: Unremarkable. Sinuses and mastoids: There is complete opacification of the right maxillary antrum. The remaining paranasal sinuses are clear. There is a large right mastoid effusion. The left mastoid air cells are well pneumatized. Orbits: The bony orbits are grossly intact. IMPRESSION: There is no evidence of hemorrhage, mass effect, or acute territorial ischemia by CT criteria. ACT 112: Negative or not required by law. Electronically signed by: Rahul Culver M.D. 02/02/2022 8:31 PM Diagnostic Findings EKG as per my interpretation rate 75, NSR, normal axis, upsloping ST depression anteroseptal leads Code Status & VTE Plan VTE Prophylaxis Plan VTE Prophylaxis will be ordered: Yes
[2022-02-02] MEDS ORDERED: ICU PROTOCOL FOR HYPERGLYCEMIA PRN ×2 (20:59→21:13)
[2022-02-02] MEDS ORDERED: ACETAMINOPHEN 1000 MG/100 ML IV IV PRN (20:59)
[2022-02-02] MEDS ORDERED: MEPERIDINE HCL 25 MG/ML CARP/VIAL IV PRN (21:13)
[2022-02-02] MEDS ORDERED: ARTIFICIAL TEARS OP OINT 3.5 GM TUBE OP PRN (21:13)
[2022-02-02] MEDS ORDERED: fentaNYL citrate 2,500 MCG/250 ML BAG IV SCH (21:13)
[2022-02-02] MEDS ORDERED: VASOPRESSIN 20 UNITS in 0.9 % SODIUM CHLORIDE 100 ML IV SCH (21:13)
[2022-02-02] MEDS ORDERED: NOREPINEPHRINE/D5W 8 MG/508 ML BAG IV SCH (21:13)
[2022-02-02] MEDS ORDERED: MIDAZOLAM HCL 1 MG/ML 2ML VIAL IV PRN (21:13)
--- NOTE | 2022-02-02 21:17 | Critical Care Consultation ---
Date of Consultation February 02, 2022 Assessment & Plan (1) Admitted to intensive care unit: Reason Critically Ill: 71-year-old male with out of hospital cardiac arrest with ROSC in the field. Patient status post PTCI with ROBIN x1 to the circumflex requiring ongoing management and therapeutic hypothermia per institution protocol. NEURO - * CAM ICU: Unable to assess * Sedation: Will initially start w/ versed given hemodynamic concerns initially. Can change to propofol if able. * Pain: Fentanyl * Unresponsive: * s/p Cardiac arrest. * Likely degree of anoxia. * Continue w/ TTM. * AM EEG. * Monitor for seizure activity. Consider loading w/ Keppra if witnessed ongoing seizure activity. * Currently minimally responsive to painful stimuli of the extremities. Pupils equal and nondilated. Breathing over the vent. CARDIAC/VASCULAR - * Out of hospital cardiac arrest w/ ROSC who is s/p PTCI w/ ROBIN x1 to the circumflex. * TTM per institution policy. * DAPT Rx per cardiology. * Trend troponin * AM Echo * Requiring dobutamine w/ poor output noted during cath. * Levo if needed. * Monitor on telemetry. RESPIRATORY - * Respiratory failure secondary to cardiac arrest: * Trend ABGs * Titrate down ventilator settings as tolerated. GI/NUTRITION - * OGT in place. * Prophylaxis: Protonix RENAL/LYTES - * YULI: * Gentle IVF for now. * Monitor for electrolyte derangements during active cooling - * Pyle in place - Strict I&Os. ENDO - * No reported h/o DM or Thyroid Dz * BSGs per unit protocol. ISS --> gtt per unit policy. HEME - * Stable H&H ID - * No concerns for infectious contribution currently. 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 This is a life/limb threatening event. This includes time spent evaluating patient, direct bedside care, chart review, placing orders, interpretation of diagnostic studies, discussion with consultants, patient, and family members, as well as other required patient management activities. This time is exclusive of all separately billable procedures, and teaching time and separate from and in addition to any other critical care service time. Thank you for allowing us to participate in the care of this patient. Please refer to my attending physician's documentation for any further recommendations. (2) Cardiac arrest: (3) S/P PTCA (percutaneous transluminal coronary angioplasty): (4) S/P drug eluting coronary stent placement: History of Present Illness Attending Physician: Tisha Phillips DO History of Present Illness Patient is a 71-year-old male with unknown past medical history who presented to the emergency department after out of hospital cardiac arrest. Initial bystander CPR was performed for approximately 11 minutes prior to EMS arrival. The patient received defibrillation x2 and 2 rounds of epinephrine. ROSC was achieved. Patient started on amiodarone drip. Patient found to have posterior STEMI. He was taken to the catheterization suite and was found to have a 1 to 2% proximal circumflex occlusion. Patient received a single drug-eluting stent to the proximal to mid circumflex. He did require defibrillation x1 secondary to V. tach while on the table. Patient initially on epinephrine drip, was changed to Levophed with dobutamine. Upon evaluation in the ICU, the patient is intubated. Patient having nonpurposeful movements. Minimally responsive to painful stimuli. Unable to contribute to HPI. Patient History Social History Smoking Status: Current every day smoker Second Hand Exposure: Yes; Do You Dip or Chew Tobacco: No; Tobacco Cessation Education Requested by Patient: No Hx Alcohol Use: Yes Alcohol type: beer Hx Substance Use: No Preferred Language: Kinyarwanda Heddler Tier Required: No Beliefs That Will Affect Care: None Current Living Situation: Spouse Current Living Situation Comment: [place] Feels Safe at Home: Yes Assistive Devices: None Assistive Devices Comment: none previous to admission Review of Systems Review of Systems: Unobtainable due to cognitive status and Unobtainable due to endotracheal tube Physical Exam Physical Exam: VITAL SIGNS - Vital signs and nursing notes were reviewed. GENERAL - 71-year-old male appearing his stated age who is intubated. No purposeful movements. HEAD - NC/AT. EYES - Pupils equal and minimally reactive bilaterally. EARS - No deformities of external structures noted on gross examination bilaterally. NOSE - Midline and without cyanosis. No epistaxis or purulent drainage noted. MOUTH/OROPHARYNX - ETT/OGT in place. Without perioral cyanosis. Buccal mucosa pink and moist. NECK - Neck with FROM. Supple to palpation. LUNGS - Chest wall symmetric without accessory muscle use, intercostals retractions, or central cyanosis. Normal vesicular breath sounds CTA B/L. No wheezes, rales, or rhonchi appreciated. CARDIAC - RRR with S1/S2. No murmur, rubs, or gallops appreciated. ABDOMEN - Abdominal contour flat without pulsations or visible masses. BS normoactive all four quadrants. No tenderness, palpable masses, hepat osplenomegaly, or ascites noted. EXTREMITIES - No clubbing or peripheral cyanosis. No pretibial edema present. +3/5 radial and dorsalis pedis pulses palpated throughout. NEUROLOGIC - Minimally responsive to painful stimuli. No purposeful movements. Breathing over the vent. Cough reflex. Pupils equal and minimally reactive. Results & Data Results & Data ([facility]) Vital Signs (Past 12 Hours) Vital Signs Temp Pulse Resp BP Pulse Ox 02/02/22 20:43 94 H 29 H 94 02/02/22 18:59 100 H 24 97 02/02/22 18:40 98 H 24 168/111 H 92 02/02/22 18:35 104 H 24 155/109 H 93 02/02/22 18:30 99 H 24 147/104 H 95 02/02/22 18:25 96 H 24 147/100 H 96 02/02/22 18:20 94 H 24 148/97 H 99 02/02/22 18:16 48 L 18 108/64 02/02/22 18:15 53 L 25 H 02/02/22 18:10 85 20 198/130 H 02/02/22 18:06 53 L 20 79/59 L 100 02/02/22 18:05 36 L 24 02/02/22 17:47 36 C L 43 L 20 79/59 L 93 Coding Level of Care Code Critical Care 1st 30-74 mins Diagnoses Admitted to intensive care unit Z78.9 Cardiac arrest I46.9 S/P PTCA (percutaneous transluminal coronary angioplasty) Z98.61 S/P drug eluting coronary stent placement Z95.5 Time Spent (min) 45
[2022-02-02] MEDS ORDERED: PROPOFOL BOLUS FROM BAG IV PRN (21:36)
[2022-02-02] MEDS: propofoL 1,000 MG/100 ML VIAL IV SCH (22:15)
[2022-02-02 22:25] LABS: Appearance Urine Clear (Clear); Bacteria Urine Automated Negative (Negative); Bilirubin Urine Negative (Negative); Blood Urine 2+ (Negative); Color Urine Yellow; Epithelial Cell Urine Auto >30 /lpf (0-5); Glucose Urine UA 1+ (Negative); Ketones Urine Negative (Negative); Leukocyte Esterase Urine Negative (Negative); Nitrite Urine Negative (Negative); Specific Gravity Urine 1.016 (1.000-1.030); Urobilinogen Urine Negative (Negative); pH Urine 7.5 (4.5-7.5)
[2022-02-02 22:26] LABS: Protein Urine Trace (Negative)
[2022-02-02] MEDS: HEPARIN SOD 5,000 UNIT/0.5 ML VIAL SQ SCH (22:46)
[2022-02-02] MEDS: DOBUTamine / D5W 500 MG/250 ML BAG IV SCH (23:00)
--- NOTE | 2022-02-02 23:11 | Cardiac Catheterization ---
[facility] Data: Medical Billing Assistant Cardiac Status Clinical evaluation leading to the procedure CAD Presenation: STEMI Anginal Classification: CCS IV Diagnostic Physicians Name: Hamlet Rucker MD Closure Device Recommendations: PCI without planned CABG Cardiac Cath Procedure Full Procedure Date February 02, 2022 Pre-Procedure Diagnosis Pre-Procedure Diagnosis: STEMI and Cardiothoracic Symptom (cardiac arrest) AUC Score AUC Score: 9 Post-Procedure Diagnosis Post-Procedure Diagnosis: Severe CAD, Successful PCI and Elevated Intracardiac Pressures Procedure(s) Performed Procedure(s) Performed: Coronary Angiography, Left Heart Cath, Right Heart Cath, Drug Eluting Stent, Ultrasound Guided Vascular Access and Procedure (Radial A- Line) Heel Seat Flap Stapler Hamlet Rucker MD Tread Builder(s) [place] Estimated Blood Loss Estimated Blood Loss: 15 Medication(s) Medication(s): Epinephrine, Fentanyl, Heparin, Lidocaine 1%, Nicardipine, Norepinephrine and Versed Medication(s): Ticagrelor, Amiodarone, dobutamine Summary of Findings Indication: STEMI/Heart Alert/dbg-nd-jegdofcc cardiac arrest. Posterior acute [place] Access: 6 Fr right radial artery. 7 Fr right common femoral vein under ultrasound guidance. Left radial A-line placed under ultrasound guidance Catheters: Mullen, EBU 3.5 guide, 7 Fr [place] Findings: LM -normal caliber, 20% ostial stenosis LAD -medium caliber, heavily calcified, 40% proximal to mid disease, distal vessel without significant disease and extends to apex. D1 and D2 without significant disease. Circumflex -medium caliber, heavily calcified, 100% acute proximal occlusion RCA -dominant, large caliber, heavily calcified 50% mid RCA. Distal vessel, PDA, PLB's without significant disease. LVEDP -21 -- PCI -- Antithrombotic therapy: Heparin, ticagrelor Procedure: Left main cannulated with EBU 3.5 guide Extrusion Die Repairer 50 wire passed across lesion into distal vessel Proximal circumflex lesion predilated with 2.5 compliant balloon Dilated lesion stented with 2.75 x 15 mm [place] drug-eluting stent from proximal to mid segment Stent post-dilated with 3.25 noncompliant balloon IC vasodilators administered for spasm Post procedure MERRITT 3 flow, stent well expanded with minimal residual stenosis and no apparent cardiac complications. Residual thrombus noted in mid to distal segment but MERRITT-3 flow Right heart cath RA 4 RV 33/5 PA 34/17 (23) PaSat 51% AoSat 92% Aster CO/CI 2.77/1.41 (on norepinephrine 0.05 mcg/kg/min) Procedure course: Patient had sustained VT immediately after stent deployment. Received defibrillation x1 with return to sinus rhythm. Rebolus with amiodarone and started on amiodarone infusion. Initial epinephrine weaned off during procedure and replaced with norepinephrine. Due to low PA sat/cardiac output post procedure started on low-dose dobutamine 5 Arterial Closure: TR band Summary: 1. Posterior STEMI/acute 100% proximal circumflex occlusion 2. Moderate non-culprit coronary artery disease -40% calcified, proximal to mid LAD 50% calcified mid RCA 3. Sustained VT requiring defibrillation x1 4. Cardiogenic shock 5. Elevated left-sided filling pressures 6. Normal pulmonary artery pressure and right-sided filling pressures 7. Successful PCI of proximal to mid circumflex with single drug-eluting stent (2.75 x 15 mm [place]; postdilated with 3.25 NC). Recommendations: Admit to ICU for continued monitoring Loaded with ticagrelor 180 mg Continue dual-antiplatelet therapy for at least 1 year. Trend troponins until peak, Check Echo Maintain normothermia Norepinephrine to MAPs >60 Dobutamine titrated to lactate, urine output, mixed venous O2 sat >55% High-dose statin Consult cardiac Rehab Hemodynamics Rest Ao:: 153/95/124 Final Ao: 143/83/107 LV: 150/21 Recommendations Recommendations: PCI without planned CABG Specimens Specimens: None Radiation Exposure (mGy) 1417 Contrast (mls) 70 Anesthesia Moderate 2767-1282 Procedural Complication(s) None Disposition ICU I attest to the content of the Intraoperative Record and any orders documented therein. Any exceptions are noted below. [facility] Card Cath Procedure Codes Cardiac Catheterization Procedure 1: Cardiovascular Cath Procedures: 57739 Coronaries & LHC (+/-LV) & RHC Therapeutic Services & Ancillary Proc Procedure 1: Cardiovascular Tx and Anc Procedures: 90922 Arterial Line Placement Procedure 2: Cardiovascular Tx and Anc Procedures: 78649 Ultrasonic Guidance Vascular Access Procedure 3: Cardiovascular Tx and Anc Procedures: 36115 Ultrasonic Guidance Vascular Access Moderate Sedation Procedure 1: Sedation/Anesthesia: 14998 Mod Sedation by the same physician;Init15 Min Child Age 5 & Up Procedure 2: Sedation/Anesthesia: 66573 Mod Sedation by the same physician; Ea [id number] Minutes Stenting Procedure 1: Cardiovascular Stent Procedures: 81945 Perc transluminal revascularization of acute sub/total occl, aMI PG Care Time/CCT Total # of Minutes Spent Total Time Spent with Patient: Total time spent is greater than 50% in coordination of care (as documented) at patient's floor/unit and/or counseling patient:
[2022-02-03] MEDS: LEVALBUTEROL 1.25MG/0.5ML NEB INH SCH ×5 (00:35→19:39)
[2022-02-03] MEDS: IPRATROPIUM BROMIDE NEB SOLN 0.02% 2.5 ML VIAL INH SCH ×4 (00:35→19:39)
[2022-02-03 00:44] LABS: Basophils # (auto) 0.01 K/uL (0-0.2); Basophils % (auto) 0.1 %; Eosinophils # (auto) 0.04 K/uL (0-0.5); Eosinophils % (auto) 0.2 %; Hematocrit (blood only) 39.9 % (42-52); Hemoglobin 14.5 g/dL (14.0-18.0); Immature Granulocytes # (auto) 0.06 K/uL (0.00-0.02); Immature Granulocytes % (auto) 0.3 %; Lymphocytes # (auto) 1.87 K/uL (1.2-3.4); Lymphocytes % (auto) 10.2 %; Mean Corpuscular Hemoglobin 33.8 pg (25-34); Mean Corpuscular Hgb Conc 36.3 g/dL (32-36); Mean Platelet Volume 10.2 fL (7.4-10.4); Monocytes # (auto) 1.56 K/uL (0.11-0.59); Monocytes % (auto) 8.5 %; Neutrophils # (auto) 14.73 K/uL (1.4-6.5); Neutrophils % (auto) 80.7 %; Platelet Count 209 K/uL (130-400); RDW Coefficient of Variation 13.6 % (11.5-14.5); RDW Standard Deviation 46.3 fL (36.4-46.3); Red Blood Count 4.29 M/uL (4.7-6.1); White Blood Count 18.27 K/uL (4.8-10.8)
[2022-02-03 00:50] LABS: iSTAT Art Bld Gas pCO2 Correct 56 mmHg (35-46); iSTAT Arterial Blood Gas HCO3 27 meg/L (19-24); iSTAT Arterial Blood Gas pCO2 58 mmHg (35-46); iSTAT Arterial Blood Gas pH 7.27 (7.35-7.45); iSTAT Arterial Blood Gas pO2 233 mmHg (80-95); iSTAT Arterial Blood Gas pO2 C 230; iSTAT Carbon Dioxide 28 mmol/L (24-31); iSTAT FiO2 80 %; iSTAT Hematocrit 40 % (42-52); iSTAT Hemoglobin 13.6 g/dl (14.0-18.0); iSTAT Potassium 4.3 mmol/L (3.3-5.0); iSTAT Site Art Line; iSTAT Sodium 141 mmol/L (135-144)
[2022-02-03] MEDS ORDERED: XOPENEX/ATROVENT 1.25mg/0.5MG NEB COMBO NEB SCH (01:00)
[2022-02-03 01:14] LABS: iSTAT Art Bld Gas pCO2 Correct 38 mmHg (35-46); iSTAT Art Bld Gas pH Corrected 7.401 (7.35-7.45); iSTAT Arterial Blood Gas HCO3 24 meg/L (19-24); iSTAT Arterial Blood Gas pCO2 43 mmHg (35-46); iSTAT Arterial Blood Gas pH 7.36 (7.35-7.45); iSTAT Arterial Blood Gas pO2 87 mmHg (80-95); iSTAT Arterial Blood Gas pO2 C 72; iSTAT Carbon Dioxide 25 mmol/L (24-31); iSTAT FiO2 50 %; iSTAT Hematocrit 39 % (42-52); iSTAT Hemoglobin 13.3 g/dl (14.0-18.0); iSTAT Site Art Line; iSTAT Sodium 139 mmol/L (135-144)
[2022-02-03 01:17] LABS: BUN Creatinine Ratio 14.8 (10-20); Calcium 7.8 mg/dl (8.5-10.1); Creatinine Clr Calc Pharmacy 65.7 ml/min; Est GFR (African American) 78.5 ml/min; Est GFR (Non-African American) 67.7 ml/min; Magnesium 1.8 mg/dl (1.7-2.4); Phosphorus 3.4 mg/dl (2.5-4.9); Potassium 4.1 mmol/L (3.5-5.1)
[2022-02-03 01:19] LABS: INR 1.1 (0.9-1.1); Partial Thromboplastin Ratio 1.9; Prothrombin Time 11.4 Seconds (9.0-12.0)
[2022-02-03 01:33] LABS: Partial Thromboplastin Time 51.5 Seconds (21.0-31.0)
[2022-02-03] MEDS ORDERED: ICU MODERATE HYPERGLYCEMIA PROTOCOL ONE (01:37)
[2022-02-03] MEDS: AMIODARONE / D5W 360 MG/200 ML BAG IV SCH ×2 (01:49→17:07)
[2022-02-03] MEDS: NORMOSOL-R 1,000 ML IV SCH ×3 (01:50→19:54)
[2022-02-03] MEDS ORDERED: PHARMACY GLYCEMIC MGMT CONSULT PRN (01:55)
[2022-02-03] MEDS: propofoL 1,000 MG/100 ML VIAL IV SCH ×2 (03:27→10:30)
[2022-02-03] MEDS ORDERED: INSULIN ASPART PER UNIT SC SCH (04:00)
[2022-02-03 04:58] LABS: Hematocrit (blood only) 39.1 % (42-52); Hemoglobin 13.8 g/dL (14.0-18.0); Mean Corpuscular Hemoglobin 32.4 pg (25-34); Mean Corpuscular Hgb Conc 35.3 g/dL (32-36); Mean Corpuscular Volume 91.8 fL (80-100); Partial Thromboplastin Ratio 1.1; Partial Thromboplastin Time 30.3 Seconds (21.0-31.0); Platelet Count 191 K/uL (130-400); Prothrombin Time 10.9 Seconds (9.0-12.0); RDW Coefficient of Variation 13.8 % (11.5-14.5); RDW Standard Deviation 46.2 fL (36.4-46.3); Red Blood Count 4.26 M/uL (4.7-6.1); White Blood Count 14.98 K/uL (4.8-10.8)
[2022-02-03 05:11] LABS: Calcium 7.7 mg/dl (8.5-10.1); Creatinine Clr Calc Pharmacy 75.5 ml/min; Est GFR (African American) 92.9 ml/min; Est GFR (Non-African American) 80.1 ml/min; Potassium 3.5 mmol/L (3.5-5.1)
[2022-02-03 05:25] LABS: Basophils # (auto) 0.01 K/uL (0-0.2); Basophils % (auto) 0.1 %; Eosinophils # (auto) 0.02 K/uL (0-0.5); Eosinophils % (auto) 0.1 %; Immature Granulocytes # (auto) 0.07 K/uL (0.00-0.02); Immature Granulocytes % (auto) 0.5 %; Lymphocytes # (auto) 2.52 K/uL (1.2-3.4); Lymphocytes % (auto) 16.8 %; Monocytes # (auto) 1.32 K/uL (0.11-0.59); Monocytes % (auto) 8.8 %; Neutrophils # (auto) 11.04 K/uL (1.4-6.5); Neutrophils % (auto) 73.7 %
[2022-02-03 05:27] LABS: Troponin I High Sensitivity 24722.7 pg/ml (0-20)
[2022-02-03] MEDS: HEPARIN SOD 5,000 UNIT/0.5 ML VIAL SQ SCH ×3 (06:19→23:26)
[2022-02-03] MEDS: MAGNESIUM SULFATE / D5W 1 GM/100 ML BAG IV SCH ×2 (06:24→08:04)
[2022-02-03] MEDS ORDERED: LEVALBUTEROL HCL 1.25 MG/3 ML NEB ONE ×2 (06:56→12:34)
--- NOTE | 2022-02-03 07:16 | XRay Report ---
KUB HISTORY: Acute generalized abdominal pain s/p OGT COMPARISON: Chest radiograph of same day FINDINGS: Status post placement of an enteric tube with distal tip projected over the abdominal left upper quadrant, presumably within the proximal gastric body. The lower abdomen is excluded from the f [id number]. Bowel gas pattern is nonobstructive. No renal calculi. No ureteral calculi. No pneumope ritoneum or pneumatosis. Degenerative changes of the spine. No fracture. IMPRESSION: Distal tip of enteric tube projects over the proximal stomach. ACT 112: Negative or not required by law. The above report was generated using voice recognition software. It may contain grammatical, syntax o r spelling errors. Electronically signed by: Dudley Albright M.D. 02/03/2022 7:15 AM
[2022-02-03 07:26] LABS: iSTAT Art Bld Gas pCO2 Correct 33 mmHg (35-46); iSTAT Art Bld Gas pH Corrected 7.462 (7.35-7.45); iSTAT Arterial Blood Gas HCO3 24 meg/L (19-24); iSTAT Arterial Blood Gas pCO2 37 mmHg (35-46); iSTAT Arterial Blood Gas pH 7.42 (7.35-7.45); iSTAT Arterial Blood Gas pO2 67 mmHg (80-95); iSTAT Arterial Blood Gas pO2 C 54; iSTAT Carbon Dioxide 25 mmol/L (24-31); iSTAT FiO2 40 %; iSTAT Hematocrit 37 % (42-52); iSTAT Hemoglobin 12.6 g/dl (14.0-18.0); iSTAT Potassium 3.2 mmol/L (3.3-5.0); iSTAT Site L Radial; iSTAT Sodium 141 mmol/L (135-144)
[2022-02-03 07:41] LABS: Estimated Average Glucose 111 mg/dl; Hemoglobin A1C 5.5 % (4.5-5.6)
[2022-02-03] MEDS: ATORVASTATIN 40 MG TAB PO SCH (07:46)
[2022-02-03] MEDS: ASPIRIN 81 MG CHEW PO SCH (07:46)
[2022-02-03] MEDS: INSULIN ASPART 100 UNITS/ML 3 ML PEN SC SCH ×4 (07:46→19:52)
[2022-02-03] MEDS: TICAGRELOR 90 MG TAB PO SCH ×2 (07:46→19:51)
[2022-02-03] MEDS: NOREPINEPHRINE/D5W 8 MG/508 ML BAG IV SCH ×2 (07:47→13:00)
--- NOTE | 2022-02-03 08:59 | XCELERA ---
[id number]
[2022-02-03] MEDS ORDERED: ASPIRIN 81 MG ECTAB PO SCH (09:00)
[2022-02-03] MEDS ORDERED: FAMOTIDINE 20 MG in SYRINGE 3 ML IV SCH (09:00)
[2022-02-03] MEDS ORDERED: MIDAZOLAM HCL 1 MG/ML 2ML VIAL IV PRN (10:03)
--- NOTE | 2022-02-03 10:03 | Critical Care Progress Note ---
Date of Service February 03, 2022 Assessment & Plan (1) Admitted to intensive care unit: Plan: Reason Critically Ill: 71-year-old male with out of hospital cardiac arrest with ROSC in the field. Patient status post PTCI with ROBIN x1 to the circumflex requiring ongoing management and therapeutic hypothermia per institution protocol. NEURO - * CAM ICU: Unable to assess * Sedation: Intermittent for 7 * Pain: Fentanyl * Unresponsive: * s/p Cardiac arrest. * Likely degree of anoxia. * Continue w/ TTM. * AM EEG. CARDIAC/VASCULAR - * Out of hospital cardiac arrest w/ ROSC who is s/p PTCI w/ ROBIN x1 to the circumflex. * TTM per institution policy. * DAPT Rx per cardiology. * Trend troponin * AM Echo * Requiring dobutamine w/ poor output noted during cath. * Levo if needed. * Monitor on telemetry. RESPIRATORY - * Respiratory failure secondary to cardiac arrest: * Trend ABGs * Titrate down ventilator settings as tolerated. GI/NUTRITION - * OGT in place. * Prophylaxis: Protonix RENAL/LYTES - * YULI: * Gentle IVF for now. * Monitor for electrolyte derangements during active cooling - * Pyle in place - Strict I&Os. ENDO - * No reported h/o DM or Thyroid Dz * BSGs per unit protocol. ISS --> gtt per unit policy. HEME - * Stable H&H ID - * No concerns for infectious contribution currently. 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 This is a life/limb threatening event. This includes time spent evaluating patient, direct bedside care, chart review, placing orders, interpretation of diagnostic studies, discussion with consultants, patient, and family members, as well as other required patient management activities. This time is exclusive of all separately billable procedures, and teaching time and separate from and in addition to any other critical care service time. (2) Cardiac arrest: (3) S/P PTCA (percutaneous transluminal coronary angioplasty): (4) S/P drug eluting coronary stent placement: Admission and Anticipated Discharge Date Admission Date: February 02, 2022 Subjective No overnight events Goal temp @ 0030 Review of Systems Review of Systems: Unobtainable due to endotracheal tube Physical Exam Physical Exam: General: Sedated. nontoxic. Skin: Warm, dry, Head: Atraumatic Ears, nose, mouth and throat: airway obscured by endotracheal tube Cardiovascular: Normal peripheral perfusion Respiratory: Ventilator settings reviewed Gastrointestinal: Non distended Musculoskeletal: No deformity Results & Data Results & Data ([facility]) Vital Signs (Past 12 Hours) Vital Signs Temp Temp Temp Pulse Pulse Resp BP 02/03/22 09:30 34.1 C L 48 L 22 02/03/22 09:15 34.0 C L 60 24 112/63 02/03/22 09:00 34.0 C L 34 C L 34 C L 50 L 19 105/62 02/03/22 08:45 34.0 C L 49 L 18 110/57 L 02/03/22 08:35 34.0 C L 52 L 22 110/59 L 02/03/22 08:30 34.0 C L 51 L 18 111/60 02/03/22 08:15 34.0 C L 48 L 18 114/61 02/03/22 08:13 34.0 C L 51 L 22 112/67 02/03/22 08:00 34.0 C L 34 C L 34 C L 55 L 18 102/61 02/03/22 07:53 48 L 54 L 23 02/03/22 07:45 34.1 C L 53 L 22 02/03/22 07:30 34.1 C L 47 L 22 98/55 L 02/03/22 07:15 34.1 C L 48 L 22 02/03/22 07:00 34.0 C L 51 L 18 108/60 02/03/22 06:49 34 C L 34.1 C L 45 L 22 02/03/22 06:45 34.0 C L 46 L 18 02/03/22 06:30 34.0 C L 47 L 18 107/59 L 02/03/22 06:15 34.0 C L 47 L 22 02/03/22 06:00 34.1 C L 34 C L 34 C L 45 L 22 109/58 L 02/03/22 05:45 34.1 C L 46 L 22 02/03/22 05:30 34.0 C L 47 L 22 02/03/22 05:15 34.0 C L 46 L 22 02/03/22 05:00 34.0 C L 34 C L 34 C L 45 L 22 114/61 02/03/22 04:45 34.0 C L 46 L 02/03/22 04:40 34.0 C L 47 L 22 99/57 L 02/03/22 04:30 34.0 C L 47 L 02/03/22 04:15 34.1 C L 45 L 22 02/03/22 04:00 34.0 C L 34 C L 34 C L 45 L 22 02/03/22 03:45 34.0 C L 46 L 02/03/22 03:30 34.0 C L 45 L 24 02/03/22 03:26 45 L 22 02/03/22 03:15 34.1 C L 45 L 26 H 02/03/22 03:00 34.1 C L 34.1 C L 34 C L 46 L 26 H 02/03/22 02:45 34.1 C L 48 L 26 H 98/61 L 02/03/22 02:30 34.1 C L 50 L 26 H 90/62 L 02/03/22 02:15 34.1 C L 53 L 26 H 02/03/22 02:00 34.1 C L 34.1 C L 34 C L 51 L 26 H 118/72 02/03/22 01:45 34.1 C L 54 L 26 H 02/03/22 01:30 34.1 C L 56 L 26 H 108/69 02/03/22 01:15 34.2 C L 60 26 H 02/03/22 01:00 34.1 C L 34.1 C L 34 C L 61 26 H 110/74 02/03/22 00:45 34.1 C L 63 26 H 02/03/22 00:35 64 26 H 02/03/22 00:30 34.0 C L 63 26 H 103/70 02/03/22 00:15 34.1 C L 69 26 H 02/03/22 00:01 34.3 C L 71 26 H 103/68 02/03/22 00:00 34.4 C L 34.4 C L 34.4 C L 72 26 H 02/02/22 23:45 34.6 C L 69 26 H 05/18/22 23:30 35.0 C L 70 27 H 104/69 02/02/22 23:15 35.2 C L 72 26 H 02/02/22 23:00 35.4 C L 35.4 C L 77 31 H 02/02/22 22:30 35.8 C L 85 27 H 102/72 02/02/22 22:15 36.0 C L 79 28 H 87/64 L 02/02/22 22:07 83 34 H 02/02/22 22:00 36.1 C L 36.1 C L 82 34 H BP BP BP Pulse Ox Pulse Ox 02/03/22 09:30 02/03/22 09:15 98 02/03/22 09:00 114/41 L 105/62 97 02/03/22 08:45 97 02/03/22 08:35 97 02/03/22 08:30 97 02/03/22 08:15 97 02/03/22 08:13 97 02/03/22 08:00 117/63 102/61 97 97 02/03/22 07:53 95 02/03/22 07:45 97 02/03/22 07:30 95 02/03/22 07:15 96 02/03/22 07:00 94 02/03/22 06:49 107/59 L 106/49 L 96 02/03/22 06:45 95 02/03/22 06:30 96 02/03/22 06:15 95 02/03/22 06:00 109/58 L 117/51 L 95 02/03/22 05:45 97 02/03/22 05:30 97 02/03/22 05:15 98 02/03/22 05:00 114/61 117/51 L 98 02/03/22 04:45 98 02/03/22 04:40 02/03/22 04:30 98 02/03/22 04:15 98 02/03/22 04:00 106/51 L 105/60 99 02/03/22 03:45 99 02/03/22 03:30 99 02/03/22 03:26 100 02/03/22 03:15 100 02/03/22 03:00 100/53 L 94/54 L 100 02/03/22 02:45 02/03/22 02:30 99 02/03/22 02:15 77 L 02/03/22 02:00 108/69 119/62 100 02/03/22 01:45 100 02/03/22 01:30 99 02/03/22 01:15 99 02/03/22 01:00 110/74 105/60 98 02/03/22 00:45 97 02/03/22 00:35 99 02/03/22 00:30 98 02/03/22 00:15 98 02/03/22 00:01 97 02/03/22 00:00 104/69 105/60 97 02/02/22 23:45 98 02/02/22 23:30 94 02/02/22 23:15 94 02/02/22 23:00 102/72 103/59 L 94 02/02/22 22:30 93 02/02/22 22:15 96 02/02/22 22:07 96 02/02/22 22:00 97/75 L 99 Critical Care Results & Data Vital Signs (Past 12 Hours) Vital Signs Temp Temp Temp Pulse Pulse Resp BP 02/03/22 09:30 34.1 C L 48 L 22 02/03/22 09:15 34.0 C L 60 24 112/63 02/03/22 09:00 34.0 C L 34 C L 34 C L 50 L 19 105/62 02/03/22 08:45 34.0 C L 49 L 18 110/57 L 02/03/22 08:35 34.0 C L 52 L 22 110/59 L 02/03/22 08:30 34.0 C L 51 L 18 111/60 02/03/22 08:15 34.0 C L 48 L 18 114/61 02/03/22 08:13 34.0 C L 51 L 22 112/67 02/03/22 08:00 34.0 C L 34 C L 34 C L 55 L 18 102/61 02/03/22 07:53 48 L 54 L 23 02/03/22 07:45 34.1 C L 53 L 22 02/03/22 07:30 34.1 C L 47 L 22 98/55 L 02/03/22 07:15 34.1 C L 48 L 22 02/03/22 07:00 34.0 C L 51 L 18 108/60 02/03/22 06:49 34 C L 34.1 C L 45 L 22 02/03/22 06:45 34.0 C L 46 L 18 02/03/22 06:30 34.0 C L 47 L 18 107/59 L 02/03/22 06:15 34.0 C L 47 L 22 02/03/22 06:00 34.1 C L 34 C L 34 C L 45 L 22 109/58 L 02/03/22 05:45 34.1 C L 46 L 22 02/03/22 05:30 34.0 C L 47 L 22 02/03/22 05:15 34.0 C L 46 L 22 02/03/22 05:00 34.0 C L 34 C L 34 C L 45 L 22 114/61 02/03/22 04:45 34.0 C L 46 L 22 02/03/22 04:40 34.0 C L 47 L 22 99/57 L 02/03/22 04:30 34.0 C L 47 L 22 02/03/22 04:15 34.1 C L 45 L 22 02/03/22 04:00 34.0 C L 34 C L 34 C L 45 L 22 02/03/22 03:45 34.0 C L 46 L 22 02/03/22 03:30 34.0 C L 45 L 24 02/03/22 03:26 45 L 22 02/03/22 03:15 34.1 C L 45 L 26 H 02/03/22 03:00 34.1 C L 34.1 C L 34 C L 46 L 26 H 02/03/22 02:45 34.1 C L 48 L 26 H 98/61 L 02/03/22 02:30 34.1 C L 50 L 26 H 90/62 L 02/03/22 02:15 34.1 C L 53 L 26 H 02/03/22 02:00 34.1 C L 34.1 C L 34 C L 51 L 26 H 118/72 02/03/22 01:45 34.1 C L 54 L 26 H 02/03/22 01:30 34.1 C L 56 L 26 H 108/69 02/03/22 01:15 34.2 C L 60 26 H 02/03/22 01:00 34.1 C L 34.1 C L 34 C L 61 26 H 110/74 02/03/22 00:45 34.1 C L 63 26 H 02/03/22 00:35 64 26 H 02/03/22 00:30 34.0 C L 63 26 H 103/70 02/03/22 00:15 34.1 C L 69 26 H 02/03/22 00:01 34.3 C L 71 26 H 103/68 02/03/22 00:00 34.4 C L 34.4 C L 34.4 C L 72 26 H 02/02/22 23:45 34.6 C L 69 26 H 02/02/22 23:30 35.0 C L 70 27 H 104/69 02/02/22 23:15 35.2 C L 72 26 H 02/02/22 23:00 35.4 C L 35.4 C L 77 31 H 02/02/22 22:30 35.8 C L 85 27 H 102/72 02/02/22 22:15 36.0 C L 79 28 H 87/64 L 02/02/22 22:07 83 34 H 02/02/22 22:00 36.1 C L 36.1 C L 82 34 H BP BP BP Pulse Ox Pulse Ox 02/03/22 09:30 02/03/22 09:15 98 02/03/22 09:00 114/41 L 105/62 97 02/03/22 08:45 97 02/03/22 08:35 97 02/03/22 08:30 97 02/03/22 08:15 97 02/03/22 08:13 97 02/03/22 08:00 117/63 102/61 97 97 02/03/22 07:53 95 02/03/22 07:45 97 02/03/22 07:30 95 02/03/22 07:15 96 02/03/22 07:00 94 02/03/22 06:49 107/59 L 106/49 L 96 02/03/22 06:45 95 02/03/22 06:30 96 02/03/22 06:15 95 02/03/22 06:00 109/58 L 117/51 L 95 02/03/22 05:45 97 02/03/22 05:30 97 02/03/22 05:15 98 02/03/22 05:00 114/61 117/51 L 98 02/03/22 04:45 98 02/03/22 04:40 02/03/22 04:30 98 02/03/22 04:15 98 02/03/22 04:00 106/51 L 105/60 99 02/03/22 03:45 99 02/03/22 03:30 99 02/03/22 03:26 100 02/03/22 03:15 100 02/03/22 03:00 100/53 L 94/54 L 100 02/03/22 02:45 02/03/22 02:30 99 02/03/22 02:15 77 L 02/03/22 02:00 108/69 119/62 100 02/03/22 01:45 100 02/03/22 01:30 99 02/03/22 01:15 99 02/03/22 01:00 110/74 105/60 98 02/03/22 00:45 97 02/03/22 00:35 99 02/03/22 00:30 98 02/03/22 00:15 98 02/03/22 00:01 97 02/03/22 00:00 104/69 105/60 97 02/02/22 23:45 98 02/02/22 23:30 94 02/02/22 23:15 94 02/02/22 23:00 102/72 103/59 L 94 02/02/22 22:30 93 02/02/22 22:15 96 02/02/22 22:07 96 02/02/22 22:00 97/75 L 99 Lab & Micro Results (Past 24 Hours) RBC 4.26 M/uL (4.7-6.1) L 02/03/22 WBC 14.98 K/uL (4.8-10.8) H 02/03/22 Hgb 13.8 g/dL (14.0-18.0) L 02/03/22 Hct 39.1 % (42-52) L 02/03/22 MCV 91.8 fL (80-100) 02/03/22 MCH 32.4 pg (25-34) 02/03/22 MCHC 35.3 g/dL (32-36) 02/03/22 RDW Standard Deviation 46.2 fL (36.4-46.3) 02/03/22 RDW Coefficient of Variation 13.8 % (11.5-14.5) 02/03/22 Plt Count 191 K/uL (130-400) 02/03/22 MPV 10.0 fL (7.4-10.4) 02/03/22 Neutrophils (%) (Auto) 73.7 % 02/03/22 Lymphocytes (%) (Auto) 16.8 % 02/03/22 Monocytes # (Auto) 1.32 K/uL (0.11-0.59) H 02/03/22 Eosinophils # (Auto) 0.02 K/uL (0-0.5) 02/03/22 Immature Granulocyte % (Auto) 0.5 % 02/03/22 Neutrophils # (Auto) 11.04 K/uL (1.4-6.5) H 02/03/22 Lymphocytes # (Auto) 2.52 K/uL (1.2-3.4) 02/03/22 Monocytes # (Auto) 1.32 K/uL (0.11-0.59) H 02/03/22 Eosinophils # (Auto) 0.02 K/uL (0-0.5) 02/03/22 Basophils # (Auto) 0.01 K/uL (0-0.2) 02/03/22 Immature Granulocyte # (Auto) 0.07 K/uL (0.00-0.02) H 02/03/22 Na 137 mmol/L (136-145) 02/03/22 K 3.5 mmol/L (3.5-5.1) 02/03/22 Cl 105 mmol/L (98-107) 02/03/22 CO2 24 mmol/L (21-32) 02/03/22 Anion Gap 8 (3-11) 02/03/22 BUN 16 mg/dl (6-23) 02/03/22 Creatinine 0.94 mg/dl (0.6-1.4) 02/03/22 Estimated GFR ( Amer) 92.9 ml/min 02/03/22 Estimated GFR (Non-Af Amer) 80.1 ml/min 02/03/22 BUN/Creatinine Ratio 17.0 (10-20) 02/03/22 Glu 145 mg/dl (70-99(Fasting)) H 02/03/22 Ca 7.7 mg/dl (8.5-10.1) L 02/03/22 Phosphorus Level 3.4 mg/dl (2.5-4.9) 02/03/22 Total Bilirubin 0.4 mg/dl (0.2-1.0) 02/02/22 AST 52 U/L (13-39) H 02/02/22 ALT 24 U/L (7-52) 02/02/22 Alkaline Phosphatase 31 U/L (34-104) L 02/02/22 TP 6.0 gm/dl (6.0-8.3) 02/02/22 Albumin 3.5 gm/dl (3.4-5.0) 02/02/22 Globulin 2.5 gm/dl (2.5-4.0) 02/02/22 Albumin/Globulin Ratio 1.4 (0.9-2) 02/02/22 Mg 1.8 mg/dl (1.7-2.4) 02/03/22 00:32 02/03/22 Calcium Level 7.7 mg/dl (8.5-10.1) L 02/03/22 04:22 02/03/22 Prothromb Time International Ratio 1.0 (0.9-1.1) 02/03/22 04:22 02/03/22 Suleman Test NA 02/03/22 07:09 02/03/22 Diagnostic Findings (Past 24 Hours) Chest X-Ray 02/02/22 18:11 SINGLE VIEW CHEST CLINICAL HISTORY: Atypical chest pain. CODE BLUE. FINDINGS: An AP, portable, supine chest radiograph is obtained No prior studies are available for comparison at the time of dictation. An endotracheal tube has been placed. The tip projects approximately 4.5 cm above the maya. A left subclavian central venous catheter is in place. The tip projects over the SVC. The heart is mildly enlarged noting atherosclerotic calcification of the thoracic aorta. There is pulmonary vascular congestion. Mild bilateral airspace opacities likely represent pulmonary edema. No large pleural effusion or pneumothorax is seen. The skeletal structures are osteopenic. The bony thorax is grossly intact. An indeterminant round density projects over the left axilla. This may be external to the patient. IMPRESSION: 1. An endotracheal tube has been placed as above. A central venous catheter is also in place. 2. Cardiomegaly with pulmonary vascular congestion. 3. Bilateral airspace opacities likely represent pulmonary edema. Clinical correlation will be required. ACT 112: Negative or not required by law. Electronically signed by: Rahul Culver M.D. 02/02/2022 6:[address] 02/02/22 18:29 CT SCAN OF THE BRAIN WITHOUT IV CONTRAST CLINICAL HISTORY: Cardiac arrest. COMPARISON STUDY: No priors. TECHNIQUE: Unenhanced axial CT scan of the brain is performed from the vertex to the skull base. A dose lowering technique was utilized adhering to the principles of ALARA. The Examination is degraded by motion artifact. The patient was scanned twice in an effort to improve image quality. The examination is also degraded by residual IV contrast throughout the intracranial vessels. CT DOSE: 1989.19 mGy.cm FINDINGS: An endotracheal tube is noted on the renal medicine physician tomogram. Brain parenchyma: There is age-related involutional change noting minimal microangiopathic disease. There is evidence of hemorrhage, mass effect, or acute territorial ischemia by CT criteria. Tolentino-white matter differentiation is preserved. No extra-axial fluid collection is seen. Ventricles, sulci, cisterns: Prominent secondary to involutional change. Intracranial vasculature: There is atherosclerotic calcification of the cavernous carotid and vertebral arteries. Calvarium: Unremarkable. Sinuses and mastoids: There is complete opacification of the right maxillary antrum. The remaining paranasal sinuses are clear. There is a large right mastoid effusion. The left mastoid air cells are well pneumatized. Orbits: The bony orbits are grossly intact. IMPRESSION: There is no evidence of hemorrhage, mass effect, or acute territorial ischemia by CT criteria. ACT 112: Negative or not required by law. Electronically signed by: Rahul Culver M.D. 02/02/2022 8:31 PM KUB X-Ray 02/02/22 21:20 KUB HISTORY: Acute generalized abdominal pain s/p OGT COMPARISON: Chest radiograph of same day FINDINGS: Status post placement of an enteric tube with distal tip projected o crystal the abdominal left upper quadrant, presumably within the proximal gastric body. The lower abdomen is excluded from the [id number]. Bowel gas pattern is nonobstructive. No renal calculi. No ureteral calculi. No pneumoperitoneum or pneumatosis. Degenerative changes of the spine. No fracture. IMPRESSION: Distal tip of enteric tube projects over the proximal stomach. ACT 112: Negative or not required by law. The above report was generated using voice recognition software. It may contain grammatical, syntax or spelling errors. Electronically signed by: Dudley Albright M.D. 02/03/2022 7:15 AM I & O Totals 24 Hours 02/02/22 02/03/22 02/04/22 06:59 06:59 06:59 Intake Total 1833.217 / 1260.960 4603.373 / 1407.373 Output Total 1686 / 1686 525 / 525 Balance 147.217 / 147.217 882.373 / 882.373 Cumulative 02/02/22 17:40 thru 02/03/22 09:00 Intake Total 3240.590 Output Total 2211 Balance 1029.590 RT Ventilator Mngmt (Last Documented) Ventilator Ordered Settings Ventilator Support Mode Assist Control 02/03/22 08:00 Respiratory Rate 22 02/03/22 09:30 Ventilator Tidal Volume 450 02/03/22 08:00 Setting Minute Ventilation 9.9 02/03/22 07:53 Positive End Expiratory 8 02/03/22 08:00 Pressure Fraction of Inspired Oxygen 45 02/03/22 09:00 Machine Comment fio2 decreased to 40% due to spo2 02/03/22 03:26 100% on monitor Ventilator - PT Measurements Respiratory Rate 22 Exhaled Tidal Volume 450 Minute Ventilation 9.9 Peak Inspiratory Airway 24 Pressure Plateau Pressure 18.6 Respiratory Cycle Inspiratory: 1:2.9 Expiratory Ratio Inspiratory Phase Time 0.70 End-Tidal CO2 27 Static Lung Compliance 42.45 Dynamic Lung Compliance 28.13 Normal Static Lung Compliance 47.00 Patient Measurements Comment RR decreased to 22 due to etco2 19. JENNY Quesada approved verbally Coding Level of Care Code Critical Care 1st 30-74 mins Diagnoses Admitted to intensive care unit Z78.9 Cardiac arrest I46.9 S/P PTCA (percutaneous transluminal coronary angioplasty) Z98.61 S/P drug eluting coronary stent placement Z95.5
--- NOTE | 2022-02-03 10:08 | Cardiology Progress Note ---
Date of Service February 03, 2022 Assessment & Plan (1) Cardiac arrest: Plan: 2. Posterior Acute MIpost PCI with ROBIN to proximal circumflex 3. Cardiogenic shock 4. Ischemic cardiomyopathyEF 45 to 50%, lateral/inferolateral wall motion abnormality 5. Moderate residual on culprit coronary artery [id number]% proximal to mid LAD, 50% mid RCA 6. Prolonged QTC Reviewed echocardiogram this morning. LV function mildly reduced. Estimated cardiac output still low. CVP borderline. No significant congestion on exam/chest x-ray today. Good urinary output, renal function stable Electrically stable overnight aside from sinus bradycardia. continue DAPT with ASA/ticagrelor Agree with discontinuing amiodarone Continue hemodynamic support with norepinephrine with estimated low cardiac output on echo/right heart cath and sinus bradycardia continue additional inotropy with dobutamine trend troponin until peak Continue statin Appreciate ICU and hospital medicine care. Admission and Anticipated Discharge Date Admission Date: February 02, 2022 Subjective Actively being cooled. Intubated and sedated. Events overnightprolonged QTC and amiodarone discontinued. Remains on norepinephrine, dobutamine I/O's1.8/1.6almost 1.5 urine Telemetry reviewedno events Review of Systems Review of Systems: Unobtainable due to endotracheal tube Physical Exam Physical Exam: General: Intubated, sedated HEENT: Sclerae anicteric, pupils reactive Lungs: Clear to auscultation anteriorly Cardiac: Bradycardic, regular, no murmurs Vascular: Right radial artery access site with no ecchymosis, hematoma 2+ right radial. Left radial A-line in place. Abdomen: Soft, few bowel sounds Extremities: No edema Results & Data ([facility]) Vital Signs (Past 12 Hours) Vital Signs Temp Temp Temp Pulse Pulse Resp BP 02/03/22 09:30 93.4 F L 48 L 22 02/03/22 09:15 93.2 F L 60 24 112/63 02/03/22 09:00 93.2 F L 93.2 F L 93.2 F L 50 L 19 105/62 02/03/22 08:45 93.2 F L 49 L 18 110/57 L 02/03/22 08:35 93.2 F L 52 L 22 110/59 L 02/03/22 08:30 93.2 F L 51 L 18 111/60 02/03/22 08:15 93.2 F L 48 L 18 114/61 02/03/22 08:13 93.2 F L 51 L 22 112/67 02/03/22 08:00 93.2 F L 93.2 F L 93.2 F L 55 L 18 102/61 02/03/22 07:53 48 L 54 L 23 02/03/22 07:45 93.4 F L 53 L 22 02/03/22 07:30 93.4 F L 47 L 22 98/55 L 02/03/22 07:15 93.4 F L 48 L 22 02/03/22 07:00 93.2 F L 51 L 18 108/60 02/03/22 06:49 93.2 F L 93.4 F L 45 L 02/03/22 06:45 93.2 F L 46 L 18 02/03/22 06:30 93.2 F L 47 L 18 107/59 L 02/03/22 06:15 93.2 F L 47 L 02/03/22 06:00 93.4 F L 93.2 F L 93.2 F L 45 L 22 109/58 L 02/03/22 05:45 93.4 F L 46 L 22 02/03/22 05:30 93.2 F L 47 L 22 02/03/22 05:15 93.2 F L 46 L 22 02/03/22 05:00 93.2 F L 93.2 F L 93.2 F L 45 L 22 114/61 02/03/22 04:45 93.2 F L 46 L 22 02/03/22 04:40 93.2 F L 47 L 22 99/57 L 02/03/22 04:30 93.2 F L 47 L 02/03/22 04:15 93.4 F L 45 L 22 02/03/22 04:00 93.2 F L 93.2 F L 93.2 F L 45 L 02/03/22 03:45 93.2 F L 46 L 22 02/03/22 03:30 93.2 F L 45 L 24 02/03/22 03:26 45 L 22 02/03/22 03:15 93.4 F L 45 L 26 H 02/03/22 03:00 93.4 F L 93.4 F L 93.2 F L 46 L 26 H 02/03/22 02:45 93.4 F L 48 L 26 H 98/61 L 02/03/22 02:30 93.4 F L 50 L 26 H 90/62 L 02/03/22 02:15 93.4 F L 53 L 26 H 02/03/22 02:00 93.4 F L 93.4 F L 93.2 F L 51 L 26 H 118/72 02/03/22 01:45 93.4 F L 54 L 26 H 02/03/22 01:30 93.4 F L 56 L 26 H 108/69 02/03/22 01:15 93.6 F L 60 26 H 02/03/22 01:00 93.4 F L 93.4 F L 93.2 F L 61 26 H 110/74 02/03/22 00:45 93.4 F L 63 26 H 02/03/22 00:35 64 26 H 02/03/22 00:30 93.2 F L 63 26 H 103/70 02/03/22 00:15 93.4 F L 69 26 H 02/03/22 00:01 93.7 F L 71 26 H 103/68 02/03/22 00:00 93.9 F L 93.9 F L 93.9 F L 72 26 H 02/02/22 23:45 94.3 F L 69 26 H 02/02/22 23:30 95.0 F L 70 27 H 104/69 02/02/22 23:15 95.4 F L 72 26 H 02/02/22 23:00 95.7 F L 95.7 F L 77 31 H 02/02/22 22:30 96.4 F L 85 27 H 102/72 02/02/22 22:15 96.8 F L 79 28 H 87/64 L 02/02/22 22:07 83 34 H 02/02/22 22:00 97.0 F L 97.0 F L 82 34 H BP BP BP Pulse Ox Pulse Ox 02/03/22 09:30 02/03/22 09:15 98 02/03/22 09:00 114/41 L 105/62 97 02/03/22 08:45 97 02/03/22 08:35 97 02/03/22 08:30 97 02/03/22 08:15 97 05/19/22 08:13 97 02/03/22 08:00 117/63 102/61 97 97 02/03/22 07:53 95 02/03/22 07:45 97 02/03/22 07:30 95 02/03/22 07:15 96 02/03/22 07:00 94 02/03/22 06:49 107/59 L 106/49 L 96 02/03/22 06:45 95 02/03/22 06:30 96 02/03/22 06:15 95 02/03/22 06:00 109/58 L 117/51 L 95 02/03/22 05:45 97 02/03/22 05:30 97 02/03/22 05:15 98 02/03/22 05:00 114/61 117/51 L 98 02/03/22 04:45 98 02/03/22 04:40 02/03/22 04:30 98 02/03/22 04:15 98 02/03/22 04:00 106/51 L 105/60 99 02/03/22 03:45 99 02/03/22 03:30 99 02/03/22 03:26 100 02/03/22 03:15 100 02/03/22 03:00 100/53 L 94/54 L 100 02/03/22 02:45 02/03/22 02:30 99 02/03/22 02:15 77 L 02/03/22 02:00 108/69 119/62 100 02/03/22 01:45 100 02/03/22 01:30 99 02/03/22 01:15 99 02/03/22 01:00 110/74 105/60 98 02/03/22 00:45 97 02/03/22 00:35 99 02/03/22 00:30 98 02/03/22 00:15 98 02/03/22 00:01 97 02/03/22 00:00 104/69 105/60 97 02/02/22 23:45 98 02/02/22 23:30 94 02/02/22 23:15 94 02/02/22 23:00 102/72 103/59 L 94 02/02/22 22:30 93 02/02/22 22:15 96 02/02/22 22:07 96 02/02/22 22:00 97/75 L 99 PG Care Time/CCT Total # of Minutes Spent Total Time Spent with Patient: Total time spent is greater than 50% in coordination of care (as documented) at patient's floor/unit and/or counseling patient: Coding Level of Care Code 69129 Subseq Hosp Care Lvl 3 Diagnoses Cardiac arrest I46.9
[2022-02-03 10:31] LABS: iSTAT Arterial Blood Gas HCO3 21 meg/L (19-24); iSTAT Arterial Blood Gas pCO2 40 mmHg (35-46); iSTAT Arterial Blood Gas pH 7.33 (7.35-7.45); iSTAT Arterial Blood Gas pO2 69 mmHg (80-95); iSTAT Carbon Dioxide 22 mmol/L (24-31)
--- NOTE | 2022-02-03 10:38 | Electroencephalogram ---
EEG Procedure Note Date of Service February 03, 2022 Start / End Times Start Time: 7:16 AM End Time: 7:36 AM Referring Physician Luis Son, DO History Cardiac arrest, code [place] Inpatient Medication List Aspirin (Aspirin 81 Mg Chew) 81 mg PO QAM [facility] Stop: 03/05/22 08:59 Last Admin: 02/03/22 07:46 Dose: 81 mg Documented by: [id number] Atorvastatin Calcium (Atorvastatin 40 Mg Tab) 80 mg PO QAM [facility] Stop: 03/05/22 08:59 Last Admin: 02/03/22 07:46 Dose: 80 mg Documented by: [id number] Heparin Sodium (Porcine) (Heparin Sod 5,000 Unit/0.5 Ml Vial) 5,000 units SQ Q8 OLIVE Stop: 03/04/22 21:59 Last Admin: 02/03/22 06:19 Dose: 5,000 units Documented by: [id number] Admin: 02/02/22 22:46 Dose: 5,000 units Documented by: [id number] Norepinephrine Bitartrate (Levophed/D5w) 8 mg in 508 mls @ 61.57 mls/hr IV .Q8H16M OLIVE; Protocol Stop: 03/04/22 20:29 Last Titration: 02/03/22 10:05 Dose: 0.2 mcg/kg/min, 61.6 mls/hr Documented by: [id number] Titration: 02/03/22 08:55 Dose: 0.2 mcg/kg/min, 61.6 mls/hr Documented by: [id number] Admin: 02/03/22 07:47 Dose: 0.2 mcg/kg/min, 61.6 mls/hr Documented by: [id number] Cosigned by: [id number] Titration: 02/03/22 07:47 Dose: 0.2 mcg/kg/min, 61.6 mls/hr Documented by: [id number] Cosigned by: [id number] Titration: 02/03/22 07:06 Dose: 0.16 mcg/kg/min, 49.3 mls/hr Documented by: [id number] Cosigned by: [id number] Titration: 02/03/22 05:00 Dose: 0.16 mcg/kg/min, 49.3 mls/hr Documented by: [id number] Titration: 02/03/22 02:00 Dose: 0.14 mcg/kg/min, 43.1 mls/hr Documented by: [id number] Titration: 02/02/22 22:30 Dose: 0.15 mcg/kg/min, 46.2 mls/hr Documented by: [id number] Titration: 02/02/22 22:00 Dose: 0.13 mcg/kg/min, 40 mls/hr Documented by: [id number] Titration: 02/02/22 21:30 Dose: 0.11 mcg/kg/min, 33.9 mls/hr Documented by: [id number] Titration: 02/02/22 21:15 Dose: 0.09 mcg/kg/min, 27.7 mls/hr Documented by: [id number] Titration: 02/02/22 21:00 Dose: 0.07 mcg/kg/min, 21.5 mls/hr Documented by: [id number] Admin: 02/02/22 20:30 Dose: 0.05 mcg/kg/min, 15.4 mls/hr Documented by: [id number] Cosigned by: [id number] Amiodarone HCl/Dextrose (Nexterone / D5w) 360 mg in 200 mls @ 16.667 mls/hr IV .Q12H OLIVE Stop: 03/05/22 02:29 Last Infusion: 02/03/22 10:05 Dose: 0 mg/min, 0 mls/hr Documented by: [id number] Cosigned by: [id number] Infusion: 02/03/22 07:06 Dose: 0 mg/min, 0 mls/hr Documented by: [id number] Cosigned by: [id number] Infusion: 02/03/22 06:10 Dose: 0 mg/min, 0 mls/hr Documented by: [id number] Cosigned by: [id number] Admin: 02/03/22 01:49 Dose: 0.5 mg/min, 16.7 mls/hr Documented by: [id number] Cosigned by: [id number] Fentanyl Citrate (Fentanyl Citrate) 2,500 mcg in 250 mls @ 15 mls/hr IV .[id number] OLIVE; Protocol Stop: 02/16/22 20:44 Last Titration: 02/03/22 10:05 Dose: 0 mcg/hr, 0 mls/hr Documented by: [id number] Cosigned by: [id number] Titration: 02/03/22 08:55 Dose: 150 mcg/hr, 15 mls/hr Documented by: [id number] Cosigned by: [id number] Titration: 02/03/22 07:06 Dose: 125 mcg/hr, 12.5 mls/hr Documented by: [id number] Cosigned by: [id number] Titration: 02/03/22 03:00 Dose: 125 mcg/hr, 12.5 mls/hr Documented by: [id number] Cosigned by: [id number] Titration: 02/03/22 01:01 Dose: 150 mcg/hr, 15 mls/hr Documented by: [id number] Cosigned by: [id number] Titration: 02/03/22 00:30 Dose: 150 mcg/hr, 15 mls/hr Documented by: [id number] Cosigned by: [id number] Titration: 02/02/22 23:30 Dose: 125 mcg/hr, 12.5 mls/hr Documented by: [id number] Cosigned by: [id number] Titration: 02/02/22 22:30 Dose: 100 mcg/hr, 10 mls/hr Documented by: [id number] Cosigned by: [id number] Titration: 02/02/22 21:30 Dose: 75 mcg/hr, 7.5 mls/hr Documented by: [id number] Cosigned by: [id number] Admin: 02/02/22 20:30 Dose: 25 mcg/hr, 2.5 mls/hr Documented by: [id number] Cosigned by: [id number] Pantoprazole Sodium 40 mg/ (Syringe) 10 mls @ 5 mls/min IV DAILY@1100 [facility] Stop: 03/05/22 10:59 Last Admin: 02/03/22 07:46 Dose: 5 mls/min Documented by: [id number] Dobutamine HCl/Dextrose (Dobutamine / D5w) 500 mg in 250 mls @ 12.12 mls/hr IV .[id number] OLIVE; Protocol Stop: 03/04/22 20:29 Last Infusion: 02/03/22 10:05 Dose: 5 mcg/kg/min, 12.1 mls/hr Documented by: [id number] Cosigned by: [id number] Infusion: 02/03/22 07:06 Dose: 5 mcg/kg/min, 12.1 mls/hr Documented by: [id number] Cosigned by: [id number] Admin: 02/02/22 23:00 Dose: 5 mcg/kg/min, 12.1 mls/hr Documented by: [id number] Cosigned by: [id number] Parenteral Electrolytes (Plasma-Lyte A) 1,000 mls @ 100 mls/hr IV .Q10H [facility] Stop: 03/05/22 01:44 Last Infusion: 02/03/22 08:55 Dose: 100 mls/hr Documented by: [id number] Infusion: 02/03/22 07:06 Dose: 100 mls/hr Documented by: [id number] Admin: 02/03/22 01:50 Dose: 100 mls/hr Documented by: [id number] Insulin Aspart (Insulin Aspart 100 Units/Ml 3 Ml Pen) 0 units SC Q4 [facility] Stop: 03/05/22 07:59 Last Admin: 02/03/22 07:46 Dose: Not Given Documented by: [id number] Cosigned by: [id number] Ipratropium Beulah (Ipratropium Beulah Neb Soln 0.02% 2.5 Ml Vial) 0.5 mg INH Q6R [facility] Stop: 03/05/22 00:59 Last Admin: 02/03/22 07:10 Dose: 0.5 mg Documented by: [id number] Admin: 02/03/22 00:35 Dose: 0.5 mg Documented by: [id number] Levalbuterol HCl (Levalbuterol 1.25mg/0.5ml Neb) 1.25 mg INH Q6R [facility] Stop: 03/05/22 00:59 Last Admin: 02/03/22 00:35 Dose: 1.25 mg Documented by: [id number] Ticagrelor (Ticagrelor 90 Mg Tab) 90 mg PO BID [facility] Stop: 03/05/22 08:59 Last Admin: 02/03/22 07:46 Dose: 90 mg Documented by: [id number] Discontinued Medications Amiodarone HCl/Dextrose (Amiodarone 150mg / 100ml D5w (Chinchilla Farmer Use Only)) Confirm Administered Dose 150 mg .ROUTE .STK-MED ONE Stop: 02/02/22 19:17 Last Admin: 02/02/22 20:07 Dose: 150 mg Documented by: [id number] Amiodarone HCl/Dextrose (Amiodarone 360mg / 200ml D5w ([employer]illa Farmer Use Only)) Confirm Administered Dose 360 mg .ROUTE .STK-MED ONE Stop: 02/02/22 19:17 Last Admin: 02/02/22 20:13 Dose: 360 mg Documented by: [id number] Atropine Sulfate (Atropine Sulfate 0.1 Mg/Ml 5ml Syr) Confirm Administered Dose 0.5 mg IV .STK-MED ONE Stop: 02/02/22 18:05 Last Admin: 02/02/22 18:52 Dose: Not Given Documented by: [id number] Dobutamine HCl/Dextrose (Dobutamine 500mg / 250ml D5w ([employer]illa Farmer Use Only)) Confirm Administered Dose 500 mg .ROUTE .STGigaCrete-MED ONE Stop: 02/02/22 19:59 Last Admin: 02/02/22 22:02 Dose: Not Given Documented by: [id number] Fentanyl Citrate (Fentanyl Citrate 100 Mcg/2 Ml Vial) Confirm Administered Dose 100 mcg .ROUTE .Azimuth-MED ONE Stop: 02/02/22 18:31 Last Admin: 02/02/22 20:14 Dose: Not Given Documented by: [id number] Fentanyl Citrate (Fentanyl Citrate 2,500 Mcg/250 Ml Bag) Confirm Administered Dose 2,500 mcg IV .STGigaCrete-MED ONE Stop: 02/02/22 20:44 Last Admin: 02/02/22 22:03 Dose: Not Given Documented by: [id number] Heparin Sodium (Porcine) (Heparin (Porcine) 1000 Unit/Ml 10 Ml (Ch[employer]illa Farmer Use Only)) Confirm Administered Dose 10,000 units .ROUTE .Azimuth-MED ONE Stop: 02/02/22 18:31 Last Admin: 02/02/22 19:36 Dose: 10,000 units Documented by: [id number] Heparin Sodium (Porcine) (Heparin (Porcine) 1000 Unit/Ml 10 Ml (Ch[employer]illa Farmer Use Only)) Confirm Administered Dose 10,000 units .ROUTE .Azimuth-MED ONE Stop: 02/02/22 19:18 Last Admin: 02/02/22 20:13 Dose: 1,000 units Documented by: [id number] Heparin Sodium/Sodium Chloride (Heparin In Nss Infusion 1000 Unit/500 Ml (2 U/Ml) Bag) Confirm Administered Dose 3,000 units IV .STK-MED ONE Stop: 02/02/22 18:31 Last Admin: 02/02/22 20:14 Dose: 3,000 units Documented by: [id number] Sodium Chloride (Nss 1000ml) 1,000 mls @ 999 mls/hr IV .Q1H1M STA Stop: 02/02/22 19:11 Last Infusion: 02/02/22 20:30 Dose: 0 mls/hr Documented by: [id number] Admin: 02/02/22 18:11 Dose: 999 mls/hr Documented by: [id number] Epinephrine HCl () 4 mg in 254 mls @ 6.157 mls/hr IV .Q24H OLIVE; Protocol Stop: 02/02/22 20:24 Last Titration: 02/03/22 10:05 Dose: 0 mcg/kg/min, 0 mls/hr Documented by: [id number] Titration: 02/03/22 07:06 Dose: 0 mcg/kg/min, 0 mls/hr Documented by: [id number] Cosigned by: [id number] Titration: 02/02/22 18:18 Dose: 0.04 mcg/kg/min, 12.3 mls/hr Documented by: [id number] Admin: 02/02/22 18:15 Dose: 0.01 mcg/kg/min, 3.1 mls/hr Documented by: [id number] Cosigned by: [id number] Amiodarone HCl/Dextrose (Nexterone / D5w) 360 mg in 200 mls @ 33.333 mls/hr IV ONE ONE; Protocol Stop: 02/03/22 02:23 Last Infusion: 02/03/22 02:40 Dose: 0 mg/min, 0 mls/hr Documented by: [id number] Cosigned by: [id number] Admin: 02/02/22 20:30 Dose: 1 mg/min, 33.3 mls/hr Documented by: [id number] Cosigned by: [id number] Dobutamine HCl/Dextrose (Dobutamine / D5w) 500 mg in 250 mls @ 12.12 mls/hr IV .[id number] OLIVE; Protocol Stop: 03/04/22 20:29 Last Titration: 02/03/22 02:42 Dose: 0 mcg/kg/min, 0 mls/hr Documented by: [id number] Cosigned by: [id number] Admin: 02/02/22 22:02 Dose: 5 mcg/kg/min, 12.1 mls/hr Documented by: [id number] Cosigned by: [id number] Midazolam HCl (Versed) 125 mg in 250 mls @ 0 mls/hr IV .Q0M OLIVE; Protocol Stop: 03/04/22 20:44 Last Titration: 02/03/22 10:05 Dose: 0 mg/hr, 0 mls/hr Documented by: [id number] Cosigned by: [id number] Titration: 02/03/22 07:06 Dose: 0 mg/hr, 0 mls/hr Documented by: [id number] Cosigned by: [id number] Titration: 02/03/22 01:00 Dose: 0 mg/hr, 0 mls/hr Documented by: [id number] Cosigned by: [id number] Titration: 02/03/22 00:00 Dose: 1 mg/hr, 2 mls/hr Documented by: [id number] Cosigned by: [id number] Titration: 02/02/22 23:30 Dose: 2 mg/hr, 4 mls/hr Documented by: [id number] Cosigned by: [id number] Titration: 02/02/22 21:30 Dose: 3 mg/hr, 6 mls/hr Documented by: [id number] Cosigned by: [id number] Admin: 02/02/22 20:30 Dose: 1 mg/hr, 2 mls/hr Documented by: [id number] Cosigned by: [id number] Vasopressin 20 units/ Sodium (Chloride) 101 mls @ 12.12 mls/hr IV .Q8H20M [facility] Stop: 03/04/22 21:12 Last Admin: 02/03/22 01:23 Dose: Not Given Documented by: [id number] Norepinephrine Bitartrate (Levophed/D5w) 8 mg in 508 mls @ 15.392 mls/hr IV .Q24H [facility]; Protocol Stop: 03/04/22 21:12 Last Admin: 02/03/22 01:23 Dose: Not Given Documented by: [id number] Epinephrine HCl () 4 mg in 254 mls @ 6.157 mls/hr IV .Q24H OLIVE; Protocol Stop: 03/04/22 21:12 Last Admin: 02/03/22 01:22 Dose: Not Given Documented by: [id number] Fentanyl Citrate (Fentanyl Citrate) 2,500 mcg in 250 mls @ 2.5 mls/hr IV .Q96H [facility]; Protocol Stop: 02/16/22 21:12 Last Admin: 02/03/22 01:23 Dose: Not Given Documented by: [id number] Propofol (Diprivan) 1,000 mg in 100 mls @ 7.272 mls/hr IV .[id number] [facility]; Protocol Stop: 02/05/22 21:44 Last Admin: 02/03/22 10:30 Dose: Not Given Documented by: [id number] Titration: 02/03/22 10:05 Dose: 0 mcg/kg/min, 0 mls/hr Documented by: [id number] Titration: 02/03/22 08:55 Dose: 15 mcg/kg/min, 7.3 mls/hr Documented by: [id number] Titration: 02/03/22 07:06 Dose: 30 mcg/kg/min, 14.5 mls/hr Documented by: [id number] Cosigned by: [id number] Admin: 02/03/22 03:27 Dose: 30 mcg/kg/min, 14.5 mls/hr Documented by: [id number] Cosigned by: [id number] Titration: 02/03/22 03:27 Dose: 30 mcg/kg/min, 14.5 mls/hr Documented by: [id number] Cosigned by: [id number] Titration: 02/03/22 00:30 Dose: 30 mcg/kg/min, 14.5 mls/hr Documented by: [id number] Titration: 02/02/22 23:30 Dose: 25 mcg/kg/min, 12.1 mls/hr Documented by: [id number] Admin: 02/02/22 22:15 Dose: 20 mcg/kg/min, 9.7 mls/hr Documented by: [id number] Cosigned by: [id number] Magnesium Sulfate/Dextrose (Magnesium Sulfate / D5w) 1 gm in 100 mls @ 50 mls/hr IV Q2H [facility] Stop: 02/03/22 10:14 Last Infusion: 02/03/22 10:05 Dose: 0 mls/hr Documented by: [id number] Admin: 02/03/22 08:04 Dose: 50 mls/hr Documented by: [id number] Infusion: 02/03/22 08:04 Dose: 50 mls/hr Documented by: [id number] Infusion: 02/03/22 07:06 Dose: 50 mls/hr Documented by: [id number] Admin: 02/03/22 06:24 Dose: 50 mls/hr Documented by: [id number] Insulin Aspart (Insulin Aspart Per Unit) 0 units SC Q4 [facility]; Protocol Stop: 03/05/22 03:59 Last Admin: 02/03/22 04:30 Dose: 3 units Documented by: [id number] Cosigned by: [id number] Levalbuterol HCl (Levalbuterol Hcl 1.25 Mg/3 Ml Neb) Confirm Administered Dose 1.25 mg .ROUTE .STK-MED ONE Stop: 02/03/22 06:57 Last Admin: 02/03/22 07:10 Dose: 1.25 mg Documented by: [id number] Lorazepam (Lorazepam 2 Mg/1 Ml Vial) Confirm Administered Dose 2 mg .ROUTE .STK- MED ONE Stop: 02/02/22 18:00 Last Admin: 02/02/22 18:01 Dose: 2 mg Documented by: [id number] Midazolam HCl (Midazolam Hcl 1 Mg/Ml 2ml Vial) Confirm Administered Dose 2 mg .ROUTE .STK-MED ONE Stop: 02/02/22 18:31 Last Admin: 02/02/22 20:14 Dose: Not Given Documented by: [id number] Midazolam HCl (Midazolam Hcl 125mg/250ml D5w) Confirm Administered Dose 125 mg .ROUTE .STK-MED ONE Stop: 02/02/22 20:44 Last Admin: 02/02/22 22:04 Dose: Not Given Documented by: [id number] Miscellaneous (Rapid Sequence Induction Bag) Confirm Administered Dose 1 ea .ROUTE .STK-MED ONE Stop: 02/02/22 17:59 Last Admin: 02/02/22 18:52 Dose: 1 ea Documented by: [id number] Misnilayaneous (Stat Iv Infusion Titration Per Protocol) 1 ea N/A NOW STA Stop: 02/02/22 18:54 Last Admin: 02/02/22 22:45 Dose: 1 ea Documented by: [id number] Miscellaneous ([facility] Protocol For Hyperglycemia) 1 ea N/A PRN PRN; Protocol PRN Reason: Hyperglycemia Protocol Stop: 02/04/22 20:58 Last Admin: 02/03/22 01:39 Dose: 1 ea Documented by: [id number] Alinecellaneous ([facility] Protocol For Hyperglycemia) 1 ea N/A PRN PRN; Protocol PRN Reason: Hyperglycemia Protocol Stop: 02/04/22 21:12 Last Admin: 02/03/22 01:40 Dose: 1 ea Documented by: [id number] Hiroaneous ([facility] Moderate Hyperglycemia Protocol) 1 ea N/A ONE ONE Stop: 02/03/22 01:38 Last Admin: 02/03/22 02:40 Dose: Not Given Documented by: [id number] Nicardipine HCl (Nicardipine Hcl Inj 2.5 Mg/Ml 10 Ml Amp) Confirm Administered Dose 25 mg .ROUTE .Azimuth-[employer]Research ONE Stop: 02/02/22 18:31 Last Admin: 02/02/22 19:36 Dose: 25 mg Documented by: [id number] Nitroglycerin/Dextrose (Nitroglycerin/D5w 100mcg/Ml 20ml Syr) Confirm Administered Dose 2,000 mcg .ROUTE .Architexa ONE Stop: 02/02/22 18:32 Last Admin: 02/02/22 19:36 Dose: 2,000 mcg Documented by: [id number] Norepinephrine Bitartrate (Norepinephrine Bitartrate 1 Mg/Ml 4 Ml Vial (Chinchilla Farmer Use Only)) Confirm Administered Dose 8 mg .ROUTE .Architexa ONE Stop: 02/02/22 18:59 Last Admin: 02/02/22 19:37 Dose: 15.4 drops Documented by: [id number] Ticagrelor (Ticagrelor 90 Mg Tab) Confirm Administered Dose 180 mg .ROUTE .Expa ONE Stop: 02/02/22 20:19 Last Admin: 02/02/22 22:46 Dose: 180 mg Documented by: [id number] Vecuronium Beulah (Vecuronium Beulah 10 Mg Vial) Confirm Administered Dose 10 mg IV .Architexa ONE Stop: 02/02/22 18:05 Last Admin: 02/02/22 18:16 Dose: 10 mg Documented by: [id number] Cosigned by: [id number] Description This is a 21 electrode EEG with a single channel dedicated to limited EKG. The electrodes were placed in accordance with the International 10-20 system. There is a poorly organized rhythm that consists largely of low to moderate amplitude theta slowing. There is a minimal degree of admixed 10 Hz alpha rhythm. Photic stimulation is unremarkable. Hyperventilation is not performed. There is periodic sharply contoured frontally predominant delta activity followed by suppression of the background rhythm throughout much of the study. Interpretation Abnormal awake/drowsy EEG revealing background slowing and a burst suppression pattern. 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 [facility] EEG Procedure Codes Indication for Procedure (1) Cardiac arrest: (2) Anoxic encephalopathy: Neurology Neurology: [id number] EEG include record awake & drowsy
[2022-02-03] MEDS ORDERED: POTASSIUM CHLORIDE 20 MEQ/15 ML UDC PO ONE (10:45)
[2022-02-03] MEDS ORDERED: PANTOprazole 40 MG in SYRINGE 0 ML IV SCH (11:00)
[2022-02-03] MEDS: DOCUSATE SODIUM SYRUP 100 MG/10 ML UDC PO SCH ×2 (11:30→19:52)
--- NOTE | 2022-02-03 12:22 | Electrocardiogram Report ---
Test Reason : Blood Pressure : / mmHG Vent. Rate : 076 BPM Atrial Rate : 076 BPM P-R Int : 192 ms QRS Dur : 096 ms QT Int : 366 ms P-R-T Axes : 067 049 076 degrees QTc Int : 411 ms Normal sinus rhythm with sinus arrhythmia Marked ST abnormality, possible anterior subendocardial injury Possible true posterior TX Abnormal ECG No previous ECGs available Confirmed by Hamlet Cordero ([id number]) on 02/03/2022 12:22:30 PM Referred By: REFERRED SELF Confirmed By:Dayday Cordero
--- NOTE | 2022-02-03 12:27 | Pharmacy Report ---
Pharmacy Glycemic Sign Off Nt - Date of Service February 03, 2022 - Assessment & Plan ASSESSMENT: * BSG's ranged 138-193 mg/dL over the last 24 hours * Patient is not a diabetic per HbA1c of 5.5% w no listed home medications * Currently ordered Novolog moderate stress estimate * Dr. Son authorized to have pharmacy sign off PLAN FOR INPATIENT GLYCEMIC CONTROL: No changes needed to current regimen. * No basal insulin * Continue NovoLog per scale ACHS/Q6hrs while NPO * Goal range = 120 160 mg/dl * CF = 30 mg/dl/unit * CR = 1 unit for ever 10 g CHO consumed * Pharmacy is signing off of glycemic consult and will no longer be making adjustments to inpatient regimen. Please feel free to re-consult if needed. Thank you.
[2022-02-03] MEDS ORDERED: MEPERIDINE HCL 25 MG/ML CARP/VIAL ONE (12:47)
[2022-02-03 12:55] LABS: Partial Thromboplastin Ratio 0.9; Partial Thromboplastin Time 25.9 Seconds (21.0-31.0); Prothrombin Time 10.3 Seconds (9.0-12.0)
[2022-02-03 12:57] LABS: iSTAT Art Bld Gas pCO2 Correct 46 mmHg (35-46); iSTAT Art Bld Gas pH Corrected 7.367 (7.35-7.45); iSTAT Arterial Blood Gas HCO3 27 meg/L (19-24); iSTAT Arterial Blood Gas pCO2 51 mmHg (35-46); iSTAT Arterial Blood Gas pH 7.34 (7.35-7.45); iSTAT Arterial Blood Gas pO2 99 mmHg (80-95); iSTAT Arterial Blood Gas pO2 C 87; iSTAT Carbon Dioxide 29 mmol/L (24-31); iSTAT FiO2 45 %; iSTAT Hematocrit 38 % (42-52); iSTAT Hemoglobin 12.9 g/dl (14.0-18.0); iSTAT Potassium 4.3 mmol/L (3.3-5.0); iSTAT Site L Radial; iSTAT Sodium 140 mmol/L (135-144)
[2022-02-03 12:58] LABS: iSTAT Arterial Blood Gas pH 7.13 (7.35-7.45); iSTAT Hematocrit 40 % (42-52); iSTAT Hemoglobin 13.6 g/dl (14.0-18.0); iSTAT Potassium 5.2 mmol/L (3.3-5.0); iSTAT Sodium 138 mmol/L (135-144)
[2022-02-03 12:59] LABS: iSTAT Arterial Blood Gas HCO3 19 meg/L (19-24); iSTAT Arterial Blood Gas pCO2 58 mmHg (35-46); iSTAT Arterial Blood Gas pO2 245 mmHg (80-95); iSTAT Carbon Dioxide 21 mmol/L (24-31)
[2022-02-03] MEDS ORDERED: MEPERIDINE HCL 25 MG/ML CARP/VIAL IV ONE ×2 (13:02→15:49)
[2022-02-03 13:03] LABS: Basophils # (auto) 0.01 K/uL (0-0.2); Basophils % (auto) 0.1 %; Eosinophils # (auto) 0.04 K/uL (0-0.5); Eosinophils % (auto) 0.3 %; Hematocrit (blood only) 39.7 % (42-52); Immature Granulocytes # (auto) 0.03 K/uL (0.00-0.02); Immature Granulocytes % (auto) 0.2 %; Lymphocytes # (auto) 2.49 K/uL (1.2-3.4); Lymphocytes % (auto) 19.5 %; Mean Corpuscular Hemoglobin 33.1 pg (25-34); Mean Corpuscular Hgb Conc 35.3 g/dL (32-36); Mean Corpuscular Volume 93.9 fL (80-100); Mean Platelet Volume 10.2 fL (7.4-10.4); Monocytes # (auto) 1.41 K/uL (0.11-0.59); Neutrophils # (auto) 8.82 K/uL (1.4-6.5); Neutrophils % (auto) 68.9 %; Platelet Count 188 K/uL (130-400); RDW Coefficient of Variation 13.7 % (11.5-14.5); RDW Standard Deviation 47.2 fL (36.4-46.3); Red Blood Count 4.23 M/uL (4.7-6.1)
--- NOTE | 2022-02-03 13:11 | XRay Report ---
SINGLE VIEW CHEST CLINICAL HISTORY: Respiratory failure. Intubation. FINDINGS: An AP, portable, upright chest radiograph is compared to study dated 02/02/2022. An endotrac heal tube in the left subclavian central venous catheter are unchanged in position. An enteric tube h as been placed. The tip projects below the diaphragm over the stomach. The heart is enlarged noting a therosclerotic calcification of the thoracic aorta. Pulmonary vascular congestion and bilateral airsp edith opacities percent. No large pleural effusion or pneumothorax is seen. There are chronic appearing left-sided rib fractures. IMPRESSION: 1. Lines and tubes as above. 2. Cardiomegaly with pulmonary vascular congestion and persistent bibasilar airspace opacities. This is unchanged from yesterday. ACT 112: Negative or not required by law. Electronically signed by: Rahul Culver M.D. 02/03/2022 1:10 PM
[2022-02-03 13:52] LABS: Calcium 7.7 mg/dl (8.5-10.1); Creatinine Clr Calc Pharmacy 72.2 ml/min; Est GFR (African American) 86.2 ml/min; Est GFR (Non-African American) 74.3 ml/min; Magnesium 2.6 mg/dl (1.7-2.4); Phosphorus 4.3 mg/dl (2.5-4.9); Potassium 4.3 mmol/L (3.5-5.1)
[2022-02-03] MEDS: MIDAZOLAM HCL 1 MG/ML 2ML VIAL IV PRN ×4 (14:34→23:18)
[2022-02-03] MEDS: DOBUTamine / D5W 500 MG/250 ML BAG IV SCH (15:09)
--- NOTE | 2022-02-03 15:59 | Hospitalist Progress Note ---
Date of Service February 03, 2022 Assessment & Plan (1) Cardiac arrest: Plan: Cardiac Arrest Posterior STEMI S/P PCI (ROBIN to proximal circumflex) Cardiogenic shock Ischemic cardiomyopathy Coronary artery disease Prolonged QTC --ECHO: Normal LV size, borderline concentric LVH, EF 45 to 50%, akinetic inferolateral wall. Moderately hypokinetic basal to mid lateral wall. No significant valvular pathology. Normal RV size and function. 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 Continue aspirin, Brilinta, statin On therapeutic hypothermia protocol Monitor I's and O's, daily weight Acute Respiratory failure secondary to cardiac arrest S/P Intubation Vent support as per ICU team EEG suggestive of anoxic encephalopathy Wean off sedation as able Acute kidney injury Hypokalemia Replace electrolytes as needed Received gentle IV fluids Monitor renal function Avoid nephrotoxic agents as able Hyperglycemia HbA1c 5.5 Ongoing tobacco abuse Counseled to quit as able DVT Px: Heparin SQ Code Status Full code Admission and Anticipated Discharge Date Admission Date: February 02, 2022 Subjective Patient is seen and examined at bedside Currently Intubated and sedated and on Hypothermia protocol Currently on pressors Planned to be weaned off of sedation Review of Systems Review of Systems: Unobtainable due to endotracheal tube Physical Exam Physical Exam: Physical Exam: Vitals signs as noted above General Appearance:Moderately built and nourished, no apparent distress Head: normocephalic, Atraumatic Eyes: normal inspection Neck: supple, Trachea midline Respiratory/Chest: Normal breath sounds, CTA Cardiovascular: S1, S2, No murmur, Bradycardia Abdomen/GI:Soft, Non tender, Bowel sounds present Extremities/Musculoskeletal:normal inspection, no edema Neurologic/Psych:Sedated and Intubated Skin: normal color, warm Results & Data Results & Data ([facility]) Vital Signs (Past 12 Hours) Vital Signs Temp Temp Temp Pulse Pulse Resp BP 02/03/22 15:38 102 H 28 H 02/03/22 15:00 35 C L 35 C L 101 H 22 02/03/22 14:58 100 H 02/03/22 14:00 34.7 C L 34.8 C L 94 H 21 02/03/22 13:00 34.7 C L 34.8 C L 83 23 02/03/22 12:00 34 C L 34 C L 68 22 02/03/22 11:02 60 22 02/03/22 11:00 34 C L 34.1 C L 79 21 02/03/22 10:00 34 C L 34 C L 48 L 22 02/03/22 09:30 34.1 C L 48 L 22 02/03/22 09:15 34.0 C L 60 24 112/63 02/03/22 09:00 34.0 C L 34 C L 34 C L 50 L 19 105/62 02/03/22 08:45 34.0 C L 49 L 18 110/57 L 02/03/22 08:35 34.0 C L 52 L 22 110/59 L 02/03/22 08:30 34.0 C L 51 L 18 111/60 02/03/22 08:15 34.0 C L 48 L 18 114/61 02/03/22 08:13 34.0 C L 51 L 22 112/67 02/03/22 08:00 34.0 C L 34 C L 34 C L 55 L 18 102/61 02/03/22 07:53 48 L 54 L 23 02/03/22 07:45 34.1 C L 53 L 02/03/22 07:30 34.1 C L 47 L 22 98/55 L 02/03/22 07:15 34.1 C L 48 L 22 02/03/22 07:00 34.0 C L 51 L 18 108/60 02/03/22 06:51 46 L 02/03/22 06:49 34 C L 34.1 C L 45 L 22 02/03/22 06:45 34.0 C L 46 L 18 02/03/22 06:30 34.0 C L 47 L 18 107/59 L 02/03/22 06:15 34.0 C L 47 L 22 02/03/22 06:00 34.1 C L 34 C L 34 C L 45 L 22 109/58 L 02/03/22 05:45 34.1 C L 46 L 22 02/03/22 05:30 34.0 C L 47 L 22 02/03/22 05:15 34.0 C L 46 L 22 02/03/22 05:00 34.0 C L 34 C L 34 C L 45 L 22 114/61 02/03/22 04:45 34.0 C L 46 L 22 02/03/22 04:40 34.0 C L 47 L 22 99/57 L 02/03/22 04:30 34.0 C L 47 L 22 02/03/22 04:15 34.1 C L 45 L 22 02/03/22 04:00 34.0 C L 34 C L 34 C L 45 L 22 02/03/22 03:45 34.0 C L 46 L 22 BP BP BP Pulse Ox Pulse Ox 02/03/22 15:38 96 02/03/22 15:00 132/56 L 103/69 95 02/03/22 14:58 02/03/22 14:00 142/60 H 110/67 97 02/03/22 13:00 122/53 L 110/62 96 02/03/22 12:00 134/54 L 117/71 96 02/03/22 11:02 95 02/03/22 11:00 130/53 L 112/67 95 02/03/22 10:00 109/39 L 99/52 L 96 02/03/22 09:30 02/03/22 09:15 98 02/03/22 09:00 114/41 L 105/62 97 02/03/22 08:45 97 02/03/22 08:35 97 02/03/22 08:30 97 02/03/22 08:15 97 02/03/22 08:13 97 02/03/22 08:00 117/63 102/61 97 97 02/03/22 07:53 95 02/03/22 07:45 97 02/03/22 07:30 95 02/03/22 07:15 96 02/03/22 07:00 94 02/03/22 06:51 02/03/22 06:49 107/59 L 106/49 L 96 02/03/22 06:45 95 02/03/22 06:30 96 02/03/22 06:15 95 02/03/22 06:00 109/58 L 117/51 L 95 02/03/22 05:45 97 02/03/22 05:30 97 02/03/22 05:15 98 02/03/22 05:00 114/61 117/51 L 98 02/03/22 04:45 98 02/03/22 04:40 02/03/22 04:30 98 02/03/22 04:15 98 02/03/22 04:00 106/51 L 105/60 99 02/03/22 03:45 99 Laboratory Results Short CBC 02/02/22 02/03/22 02/03/22 Range/Units 17:25 00:32 04:22 WBC 17.12 H 18.27 H 14.98 H (4.8-10.8) K/uL Hgb 15.3 14.5 13.8 L (14.0-18.0) g/dL Hct 44.0 39.9 L 39.1 L (42-52) % Plt Count 248 209 191 (130-400) K/uL 02/03/22 Range/Units 12:33 WBC 12.80 H (4.8-10.8) K/uL Hgb 14.0 (14.0-18.0) g/dL Hct 39.7 L (42-52) % Plt Count 188 (130-400) K/uL BMP 02/02/22 02/03/22 02/03/22 17:25 00:32 04:22 Sodium 138 139 137 Potassium 4.3 4.1 3.5 Chloride 104 107 105 Carbon Dioxide 22 25 24 BUN 12 16 16 Creatinine 1.65 H 1.08 D 0.94 Glucose 193 H 167 H 145 H Calcium 8.6 7.8 L 7.7 L 02/03/22 12:33 Sodium 140 Potassium 4.3 D Chloride 107 Carbon Dioxide 26 BUN 15 Creatinine 1.00 Glucose 99 Calcium 7.7 L Liver Function 02/02/22 Range/Units 17:25 Total Bilirubin 0.4 (0.2-1.0) mg/dl AST 52 H (13-39) U/L ALT 24 (7-52) U/L Alkaline Phosphatase 31 L (34-104) U/L Albumin 3.5 (3.4-5.0) gm/dl Urine 02/02/22 Range/Units 21:30 Urine Color Yellow Urine Appearance Clear (Clear) Urine pH 7.5 (4.5-7.5) Ur Specific [place] 1.016 (1.000-1.030) Urine Protein Trace H (Negative) Urine Glucose (UA) 1+ H (Negative)
--- NOTE | 2022-02-03 18:10 | Electrocardiogram Report ---
Test Reason : Blood Pressure : / mmHG Vent. Rate : 064 BPM Atrial Rate : 064 BPM P-R Int : 204 ms QRS Dur : 092 ms QT Int : 486 ms P-R-T Axes : 032 053 072 degrees QTc Int : 501 ms Normal sinus rhythm When compared with ECG of 02-FEB-2022 20:49, (unconfirmed) ST no longer depressed in Lateral leads Confirmed by Hamlet Cordero ([id number] on 02/03/2022 6:09:43 PM Referred By: REFERRED SELF Confirmed By:Dayday Cordero
--- NOTE | 2022-02-03 18:11 | Electrocardiogram Report ---
Test Reason : Blood Pressure : / mmHG Vent. Rate : 046 BPM Atrial Rate : 046 BPM P-R Int : 208 ms QRS Dur : 092 ms QT Int : 612 ms P-R-T Axes : 013 052 072 degrees QTc Int : 535 ms Sinus bradycardia with 1st degree AV block Prolonged QT Abnormal ECG When compared with ECG of 03-FEB-2022 00:54, (unconfirmed) No significant change was found Confirmed by Hamlet Cordero ([id number]) on 02/03/2022 6:11:15 PM Referred By: REFERRED SELF Confirmed By:Dayday Cordero
[2022-02-03] MEDS ORDERED: VECURONIUM BROMIDE 10 MG VIAL IV STA (18:32)
[2022-02-03 18:49] LABS: Basophils # (auto) 0.01 K/uL (0-0.2); Basophils % (auto) 0.1 %; Eosinophils # (auto) 0.01 K/uL (0-0.5); Eosinophils % (auto) 0.1 %; Hematocrit (blood only) 37.7 % (42-52); Hemoglobin 13.6 g/dL (14.0-18.0); Immature Granulocytes # (auto) 0.03 K/uL (0.00-0.02); Immature Granulocytes % (auto) 0.2 %; Lymphocytes % (auto) 9.6 %; Mean Corpuscular Hemoglobin 33.7 pg (25-34); Mean Corpuscular Hgb Conc 36.1 g/dL (32-36); Mean Corpuscular Volume 93.5 fL (80-100); Mean Platelet Volume 10.4 fL (7.4-10.4); Monocytes # (auto) 1.32 K/uL (0.11-0.59); Monocytes % (auto) 9.8 %; Neutrophils # (auto) 10.85 K/uL (1.4-6.5); Neutrophils % (auto) 80.2 %; Platelet Count 164 K/uL (130-400); RDW Coefficient of Variation 13.7 % (11.5-14.5); RDW Standard Deviation 46.6 fL (36.4-46.3); Red Blood Count 4.03 M/uL (4.7-6.1); White Blood Count 13.52 K/uL (4.8-10.8)
[2022-02-03 18:55] LABS: Partial Thromboplastin Time 26.8 Seconds (21.0-31.0); Prothrombin Time 10.3 Seconds (9.0-12.0)
[2022-02-03 19:00] LABS: Calcium 7.6 mg/dl (8.5-10.1); Creatinine Clr Calc Pharmacy 72.2 ml/min; Est GFR (African American) 86.2 ml/min; Est GFR (Non-African American) 74.3 ml/min; Magnesium 2.3 mg/dl (1.7-2.4); Phosphorus 3.6 mg/dl (2.5-4.9); Potassium 4.3 mmol/L (3.5-5.1)
[2022-02-03] MEDS: fentaNYL citrate 2,500 MCG/250 ML BAG IV SCH (19:27)
[2022-02-03 19:29] LABS: iSTAT Art Bld Gas pCO2 Correct 39 mmHg (35-46); iSTAT Art Bld Gas pH Corrected 7.419 (7.35-7.45); iSTAT Arterial Blood Gas HCO3 26 meg/L (19-24); iSTAT Arterial Blood Gas pCO2 42 mmHg (35-46); iSTAT Arterial Blood Gas pO2 96 mmHg (80-95); iSTAT Arterial Blood Gas pO2 C 87; iSTAT Carbon Dioxide 27 mmol/L (24-31); iSTAT FiO2 40 %; iSTAT Hematocrit 35 % (42-52); iSTAT Hemoglobin 11.9 g/dl (14.0-18.0); iSTAT Potassium 3.5 mmol/L (3.3-5.0); iSTAT Site Art Line; iSTAT Sodium 139 mmol/L (135-144)
[2022-02-03] MEDS ORDERED: MEPERIDINE HCL 25 MG/ML CARP/VIAL IV PRN (23:06)
[2022-02-04] MEDS: INSULIN ASPART 100 UNITS/ML 3 ML PEN SC SCH ×3 (00:13→08:38)
[2022-02-04] MEDS: LEVALBUTEROL 1.25MG/0.5ML NEB INH SCH ×2 (00:15→07:29)
[2022-02-04] MEDS: IPRATROPIUM BROMIDE NEB SOLN 0.02% 2.5 ML VIAL INH SCH ×2 (00:15→07:29)
[2022-02-04 00:45] LABS: Hematocrit (blood only) 36.6 % (42-52); Hemoglobin 12.7 g/dL (14.0-18.0); Mean Corpuscular Hemoglobin 32.1 pg (25-34); Mean Corpuscular Hgb Conc 34.7 g/dL (32-36); Mean Corpuscular Volume 92.4 fL (80-100); Mean Platelet Volume 10.4 fL (7.4-10.4); Platelet Count 142 K/uL (130-400); RDW Coefficient of Variation 13.8 % (11.5-14.5); RDW Standard Deviation 46.4 fL (36.4-46.3); Red Blood Count 3.96 M/uL (4.7-6.1); White Blood Count 9.86 K/uL (4.8-10.8)
[2022-02-04 00:55] LABS: iSTAT Arterial Blood Gas HCO3 26 meg/L (19-24); iSTAT Arterial Blood Gas pCO2 56 mmHg (35-46); iSTAT Arterial Blood Gas pH 7.27 (7.35-7.45); iSTAT Arterial Blood Gas pO2 67 mmHg (80-95); iSTAT Carbon Dioxide 27 mmol/L (24-31); iSTAT FiO2 30 %; iSTAT Site Art Line
[2022-02-04 01:03] LABS: Partial Thromboplastin Ratio 1.2; Partial Thromboplastin Time 32.8 Seconds (21.0-31.0); Prothrombin Time 10.7 Seconds (9.0-12.0)
[2022-02-04 01:16] LABS: BUN Creatinine Ratio 15.9 (10-20); Calcium 7.5 mg/dl (8.5-10.1); Creatinine Clr Calc Pharmacy 82.1 ml/min; Est GFR (African American) 98.8 ml/min; Est GFR (Non-African American) 85.2 ml/min; Magnesium 2.3 mg/dl (1.7-2.4); Phosphorus 3.9 mg/dl (2.5-4.9); Potassium 3.8 mmol/L (3.5-5.1)
[2022-02-04 01:18] LABS: Immature Granulocytes # (auto) 0.02 K/uL (0.00-0.02); Immature Granulocytes % (auto) 0.2 %; Lymphocytes % (auto) 14.2 %; Monocytes # (auto) 0.91 K/uL (0.11-0.59); Monocytes % (auto) 9.2 %; Neutrophils # (auto) 7.53 K/uL (1.4-6.5); Neutrophils % (auto) 76.4 %; RBC Morphology Unremarkable
[2022-02-04] MEDS: MIDAZOLAM HCL 1 MG/ML 2ML VIAL IV PRN ×2 (03:27→05:36)
[2022-02-04] MEDS: HEPARIN SOD 5,000 UNIT/0.5 ML VIAL SQ SCH (05:23)
[2022-02-04 06:56] LABS: Hematocrit (blood only) 37.2 % (42-52); Hemoglobin 12.9 g/dL (14.0-18.0); Mean Corpuscular Hemoglobin 32.2 pg (25-34); Mean Corpuscular Hgb Conc 34.7 g/dL (32-36); Mean Corpuscular Volume 92.8 fL (80-100); Mean Platelet Volume 10.4 fL (7.4-10.4); Partial Thromboplastin Ratio 1.1; Partial Thromboplastin Time 29.3 Seconds (21.0-31.0); Platelet Count 155 K/uL (130-400); Prothrombin Time 10.3 Seconds (9.0-12.0); RDW Standard Deviation 47.2 fL (36.4-46.3); Red Blood Count 4.01 M/uL (4.7-6.1); White Blood Count 10.83 K/uL (4.8-10.8)
[2022-02-04 07:06] LABS: BUN Creatinine Ratio 14.4 (10-20); Calcium 7.5 mg/dl (8.5-10.1); Creatinine Clr Calc Pharmacy 80.2 ml/min; Est GFR (African American) 97.9 ml/min; Est GFR (Non-African American) 84.4 ml/min; Magnesium 2.3 mg/dl (1.7-2.4); Phosphorus 3.3 mg/dl (2.5-4.9); Potassium 4.1 mmol/L (3.5-5.1)
[2022-02-04 07:18] LABS: Basophils # (auto) 0.01 K/uL (0-0.2); Basophils % (auto) 0.1 %; Eosinophils # (auto) 0.01 K/uL (0-0.5); Eosinophils % (auto) 0.1 %; Immature Granulocytes # (auto) 0.02 K/uL (0.00-0.02); Immature Granulocytes % (auto) 0.2 %; Lymphocytes # (auto) 1.48 K/uL (1.2-3.4); Lymphocytes % (auto) 13.7 %; Monocytes # (auto) 0.75 K/uL (0.11-0.59); Monocytes % (auto) 6.9 %; Neutrophils # (auto) 8.56 K/uL (1.4-6.5)
[2022-02-04 07:39] LABS: iSTAT Art Bld Gas pCO2 Correct 48 mmHg (35-46); iSTAT Arterial Blood Gas HCO3 28 meg/L (19-24); iSTAT Arterial Blood Gas pCO2 50 mmHg (35-46); iSTAT Arterial Blood Gas pH 7.35 (7.35-7.45); iSTAT Arterial Blood Gas pO2 60 mmHg (80-95); iSTAT Arterial Blood Gas pO2 C 56; iSTAT Carbon Dioxide 29 mmol/L (24-31); iSTAT FiO2 40 %; iSTAT Hematocrit 35 % (42-52); iSTAT Hemoglobin 11.9 g/dl (14.0-18.0); iSTAT Potassium 3.9 mmol/L (3.3-5.0); iSTAT Site Art Line; iSTAT Sodium 138 mmol/L (135-144)
[2022-02-04] MEDS: DOCUSATE SODIUM SYRUP 100 MG/10 ML UDC PO SCH ×2 (07:58→21:31)
[2022-02-04] MEDS: NORMOSOL-R 1,000 ML IV SCH (07:58)
[2022-02-04] MEDS: DOBUTamine / D5W 500 MG/250 ML BAG IV SCH (07:58)
[2022-02-04] MEDS: TICAGRELOR 90 MG TAB PO SCH ×2 (07:59→21:31)
[2022-02-04] MEDS: ASPIRIN 81 MG CHEW PO SCH (07:59)
--- NOTE | 2022-02-04 08:06 | XRay Report ---
XR chest 1V portable HISTORY: 71 years-old Male ntubated acute respiratory failure COMPARISON: Chest radiograph 02/03/2022 TECHNIQUE: Portable AP view of the chest FINDINGS: Cardiac silhouette is mildly enlarged. Endotracheal tube terminates well above the maya appears to be in satisfactory positioning. Enteric tube courses into the stomach with distal tip outside the fie ld-of-view. Left subclavian central venous catheter appears unchanged. No pneumothorax or large pleur al effusion. Pulmonary vascular congestion has mildly improved. Mild linear right midlung and left ba silar atelectasis versus scarring. Degenerative changes of the shoulders and spine. IMPRESSION: 1. Cardiomegaly with mildly improved pulmonary vascular congestion. 2. Stable positioning of the life-support lines and tubes. 3. No pneumothorax. ACT 112: Negative or not required by law. The above report was generated using voice recognition software. It may contain grammatical, syntax o r spelling errors. Electronically signed by: Dudley Albright M.D. 02/04/2022 8:05 AM
[2022-02-04] MEDS: NOREPINEPHRINE/D5W 8 MG/508 ML BAG IV SCH (08:37)
--- NOTE | 2022-02-04 09:43 | Critical Care Progress Note ---
Date of Service February 04, 2022 Assessment & Plan (1) Admitted to intensive care unit: Plan: Reason Critically Ill: 71-year-old male with out of hospital cardiac arrest with ROSC in the field. Patient status post PTCI with ROBIN x1 to the circumflex requiring ongoing management and therapeutic hypothermia per institution protocol. NEURO - * CAM ICU: Unable to assess * Sedation: Discontinue today * Pain: Discontinue today * Unresponsive: Significant improvement * s/p Cardiac arrest. * Likely degree of anoxia. CARDIAC/VASCULAR - * Out of hospital cardiac arrest w/ ROSC who is s/p PTCI w/ ROBIN x1 to the circumflex. * TTM per institution policy. * DAPT Rx per cardiology. * Requiring dobutamine w/ poor output noted during cath. * Monitor on telemetry. RESPIRATORY - * Respiratory failure secondary to cardiac arrest: Resolved GI/NUTRITION - * Prophylaxis: Discontinue Protonix RENAL/LYTES - * YULI: Resolved * Discontinue supplemental IV fluids * 20 mg Lasix x1 - * Pyle in place - Strict I&Os. ENDO - * No reported h/o DM or Thyroid Dz * BSGs per unit protocol. HEME - * Stable H&H ID - * No concerns for infectious contribution currently. LINES/IV ACCESS - * PIVs x2 * ETT: Extubated * LEFT Subclavian cooling catheter leave in place x24 hours * LEFT Radial Art line: Discontinue * Pyle DVT PROPHYLAXIS - * SCDs * Lovenox 40 mg daily I have personally spent 40 minutes of critical care time in the direct management of this patient. This is a life/limb threatening event. This includes time spent evaluating patient, direct bedside care, chart review, placing orders, interpretation of diagnostic studies, discussion with consultants, patient, and family members, as well as other required patient management activities. This time is exclusive of all separately billable procedures, and teaching time and separate from and in addition to any other critical care service time. (2) Cardiac arrest: (3) S/P PTCA (percutaneous transluminal coronary angioplasty): (4) S/P drug eluting coronary stent placement: Admission and Anticipated Discharge Date Admission Date: February 02, 2022 Subjective Following simple commands, extubated this morning Physical Exam Physical Exam: General: Following simple commands/pantomime, nontoxic. Skin: Warm, dry, Head: Atraumatic Ears, nose, mouth and throat: airway obscured by endotracheal tube Cardiovascular: Normal peripheral perfusion Respiratory: Ventilator settings reviewed Gastrointestinal: Non distended Musculoskeletal: No deformity Results & Data Results & Data ([facility]) Vital Signs (Past 12 Hours) Vital Signs Temp Temp Temp Pulse Pulse Resp BP 02/04/22 09:00 36.6 C 109 H 18 111/58 L 02/04/22 08:45 36.6 C 100 H 11 L 95/59 L 02/04/22 08:30 36.5 C 107 H 17 106/59 L 02/04/22 08:16 36.3 C L 118 H 14 110/62 02/04/22 08:15 36.3 C L 109 H 13 02/04/22 08:00 36.2 C L 36.3 C L 36.3 C L 106 H 28 H 112/63 02/04/22 07:30 36 C L 36 C L 104 H 24 02/04/22 07:10 111 H 27 H 02/04/22 07:00 102 H 02/04/22 06:30 35.3 C L 35.3 C L 103 H 19 02/04/22 05:30 34.9 C L 35 C L 105 H 17 02/04/22 04:00 34.3 C L 34.5 C L 104 H 18 02/04/22 03:30 33.8 C L 34 C L 103 H 18 02/04/22 03:18 101 H 31 H 02/04/22 02:30 33.5 C L 33.4 C L 100 H 17 02/04/22 01:30 33 C L 32.9 C L 98 H 20 02/04/22 00:30 32.2 C L 32.3 C L 96 H 20 02/04/22 00:17 85 22 02/04/22 00:00 32.1 C L 32 C L 84 21 02/03/22 23:00 32.3 C L 32.9 C L 64 18 02/03/22 22:12 51 L 22 02/03/22 22:00 32.1 C L 31.8 C L 56 L 22 BP BP Pulse Ox Pulse Ox 02/04/22 09:00 96 02/04/22 08:45 98 02/04/22 08:30 97 02/04/22 08:16 95 02/04/22 08:15 96 02/04/22 08:00 133/51 L 112/63 95 96 02/04/22 07:30 128/49 L 120/76 96 02/04/22 07:10 92 02/04/22 07:00 02/04/22 06:30 125/49 L 111/65 96 02/04/22 05:30 136/59 L 120/66 96 02/04/22 04:00 134/52 L 108/64 95 02/04/22 03:30 98/46 L 127/74 100 02/04/22 03:18 95 02/04/22 02:30 128/59 L 124/79 100 02/04/22 01:30 134/39 L 119/71 97 02/04/22 00:30 126/46 L 106/70 96 02/04/22 00:17 92 02/04/22 00:00 96/40 L 97/56 L 93 93 02/03/22 23:00 112/39 L 112/59 L 97 02/03/22 22:12 96 02/03/22 22:00 146/50 H 126/63 96 Critical Care Results & Data Vital Signs (Past 12 Hours) Vital Signs Temp Temp Temp Pulse Pulse Resp BP 02/04/22 09:00 36.6 C 109 H 18 111/58 L 02/04/22 08:45 36.6 C 100 H 11 L 95/59 L 02/04/22 08:30 36.5 C 107 H 17 106/59 L 02/04/22 08:16 36.3 C L 118 H 14 110/62 02/04/22 08:15 36.3 C L 109 H 13 02/04/22 08:00 36.2 C L 36.3 C L 36.3 C L 106 H 28 H 112/63 02/04/22 07:30 36 C L 36 C L 104 H 24 02/04/22 07:10 111 H 27 H 02/04/22 07:00 102 H 02/04/22 06:30 35.3 C L 35.3 C L 103 H 19 02/04/22 05:30 34.9 C L 35 C L 105 H 17 02/04/22 04:00 34.3 C L 34.5 C L 104 H 18 02/04/22 03:30 33.8 C L 34 C L 103 H 18 02/04/22 03:18 101 H 31 H 02/04/22 02:30 33.5 C L 33.4 C L 100 H 17 02/04/22 01:30 33 C L 32.9 C L 98 H 20 02/04/22 00:30 32.2 C L 32.3 C L 96 H 20 02/04/22 00:17 85 22 02/04/22 00:00 32.1 C L 32 C L 84 21 02/03/22 23:00 32.3 C L 32.9 C L 64 18 02/03/22 22:12 51 L 22 02/03/22 22:00 32.1 C L 31.8 C L 56 L 22 BP BP Pulse Ox Pulse Ox 02/04/22 09:00 96 02/04/22 08:45 98 02/04/22 08:30 97 02/04/22 08:16 95 02/04/22 08:15 96 02/04/22 08:00 133/51 L 112/63 95 96 02/04/22 07:30 128/49 L 120/76 96 02/04/22 07:10 92 02/04/22 07:00 02/04/22 06:30 125/49 L 111/65 96 02/04/22 05:30 136/59 L 120/66 96 02/04/22 04:00 134/52 L 108/64 95 02/04/22 03:30 98/46 L 127/74 100 02/04/22 03:18 95 02/04/22 02:30 128/59 L 124/79 100 02/04/22 01:30 134/39 L 119/71 97 02/04/22 00:30 126/46 L 106/70 96 02/04/22 00:17 92 02/04/22 00:00 96/40 L 97/56 L 93 93 02/03/22 23:00 112/39 L 112/59 L 97 02/03/22 22:12 96 02/03/22 22:00 146/50 H 126/63 96 Lab & Micro Results (Past 24 Hours) RBC 4.01 M/uL (4.7-6.1) L 02/04/22 WBC 10.83 K/uL (4.8-10.8) H 02/04/22 Hgb 12.9 g/dL (14.0-18.0) L 02/04/22 Hct 37.2 % (42-52) L 02/04/22 MCV 92.8 fL (80-100) 02/04/22 MCH 32.2 pg (25-34) 02/04/22 MCHC 34.7 g/dL (32-36) 02/04/22 RDW Standard Deviation 47.2 fL (36.4-46.3) H 02/04/22 RDW Coefficient of Variation 14.0 % (11.5-14.5) 02/04/22 Plt Count 155 K/uL (130-400) 02/04/22 MPV 10.4 fL (7.4-10.4) 02/04/22 Neutrophils (%) (Auto) 79.0 % 02/04/22 Lymphocytes (%) (Auto) 13.7 % 02/04/22 Monocytes # (Auto) 0.75 K/uL (0.11-0.59) H 02/04/22 Eosinophils # (Auto) 0.01 K/uL (0-0.5) 02/04/22 Immature Granulocyte % (Auto) 0.2 % 02/04/22 Neutrophils # (Auto) 8.56 K/uL (1.4-6.5) H 02/04/22 Lymphocytes # (Auto) 1.48 K/uL (1.2-3.4) 02/04/22 Monocytes # (Auto) 0.75 K/uL (0.11-0.59) H 02/04/22 Eosinophils # (Auto) 0.01 K/uL (0-0.5) 02/04/22 Basophils # (Auto) 0.01 K/uL (0-0.2) 02/04/22 Immature Granulocyte # (Auto) 0.02 K/uL (0.00-0.02) 02/04/22 Red Blood Cell Morphology Unremarkable 02/04/22 Na 138 mmol/L (136-145) 02/04/22 K 4.1 mmol/L (3.5-5.1) 02/04/22 Cl 104 mmol/L (98-107) 02/04/22 CO2 30 mmol/L (21-32) 02/04/22 Anion Gap 4 (3-11) 02/04/22 BUN 13 mg/dl (6-23) 02/04/22 Creatinine 0.90 mg/dl (0.6-1.4) 02/04/22 Estimated GFR ( Amer) 97.9 ml/min 02/04/22 Estimated GFR (Non-Af Amer) 84.4 ml/min 02/04/22 BUN/Creatinine Ratio 14.4 (10-20) 02/04/22 Glu 84 mg/dl (70-99(Fasting)) 02/04/22 Ca 7.5 mg/dl (8.5-10.1) L 02/04/22 Phosphorus Level 3.3 mg/dl (2.5-4.9) 02/04/22 Mg 2.3 mg/dl (1.7-2.4) 02/04/22 06:20 02/04/22 Calcium Level 7.5 mg/dl (8.5-10.1) L 02/04/22 06:20 02/04/22 Prothromb Time International Ratio 1.0 (0.9-1.1) 02/04/22 06:20 02/04/22 Suleman Test NA 02/04/22 07:23 02/04/22 Diagnostic Findings (Past 24 Hours) Chest X-Ray 02/03/22 07:00 SINGLE VIEW CHEST CLINICAL HISTORY: Respiratory failure. Intubation. FINDINGS: An AP, portable, upright chest radiograph is compared to study dated 02/02/2022. An endotracheal tube in the left subclavian central venous catheter are unchanged in position. An enteric tube has been placed. The tip projects bel ow the diaphragm over the stomach. The heart is enlarged noting atherosclerotic calcification of the thoracic aorta. Pulmonary vascular congestion and bilateral airspace opacities percent. No large pleural effusion or pneumothorax is seen. There are chronic appearing left-sided rib fractures. IMPRESSION: 1. Lines and tubes as above. 2. Cardiomegaly with pulmonary vascular congestion and persistent bibasilar airspace opacities. This is unchanged from yesterday. ACT 112: Negative or not required by law. Electronically signed by: Rahul Culver M.D. 02/03/2022 1:10 PM Chest X-Ray 02/04/22 07:00 XR chest 1V portable HISTORY: 71 years-old Male ntubated acute respiratory failure COMPARISON: Chest radiograph 02/03/2022 TECHNIQUE: Portable AP view of the chest FINDINGS: Cardiac silhouette is mildly enlarged. Endotracheal tube terminates well above the maya appears to be in satisfactory positioning. Enteric tube courses into the stomach with distal tip outside the [id number]. Left subclavian central venous catheter appears unchanged. No pneumothorax or large pleural effusion. Pulmonary vascular congestion has mildly improved. Mild linear right midlung and left basilar atelectasis versus scarring. Degenerative changes of the shoulders and spine. IMPRESSION: 1. Cardiomegaly with mildly improved pulmonary vascular congestion. 2. Stable positioning of the life-support lines and tubes. 3. No pneumothorax. ACT 112: Negative or not required by law. The above report was generated using voice recognition software. It may contain grammatical, syntax or spelling errors. Electronically signed by: Dudley Albright M.D. 02/04/2022 8:05 AM I & O Totals 24 Hours 02/03/22 02/04/22 02/05/22 06:59 06:59 06:59 Intake Total 1833.217 / 5217.217 0373.512 / 4402.512 44.022 / 44.022 Output Total 1686 / 1686 2096 / 2096 135 / 135 Balance 147.217 / 647.490 5257.512 / 2306.512 -90.978 / -90.978 Cumulative 02/02/22 17:40 thru 02/04/22 08:30 Intake Total 6279.751 Output Total 3917 Balance 2362.751 RT Ventilator Mngmt (Last Documented) Ventilator Ordered Settings Ventilator Support Mode Assist Control 02/04/22 08:00 Respiratory Rate 18 02/04/22 09:00 Ventilator Tidal Volume 450 02/04/22 08:00 Setting Minute Ventilation 9.8 02/04/22 07:10 Positive End Expiratory 5 02/04/22 08:00 Pressure Fraction of Inspired Oxygen 40 02/04/22 08:00 Machine Comment peep decreased to +5, RN notified 02/03/22 22:12 Ventilator - PT Measurements Respiratory Rate 18 Exhaled Tidal Volume 435 Minute Ventilation 9.8 Peak Inspiratory Airway 26 Pressure Plateau Pressure 21 Respiratory Cycle Inspiratory: 1:2.9 Expiratory Ratio Inspiratory Phase Time 0.7 End-Tidal CO2 36 Static Lung Compliance 27.19 Dynamic Lung Compliance 20.71 Normal Static Lung Compliance 46.00 Patient Measurements Comment Patient extubated per verbal order from Dr. Son. Patient tolerated extubation very well. Placed on a 40% Aerosol Mask. SpO2 96%. Nurse at bedside assisting. Coding Level of Care Code 20766 Subseq Hosp Care Lvl 3 Diagnoses Admitted to intensive care unit Z78.9 Cardiac arrest I46.9 S/P PTCA (percutaneous transluminal coronary angioplasty) Z98.61 S/P drug eluting coronary stent placement Z95.5
[2022-02-04] MEDS ORDERED: FUROSEMIDE 20 MG in SYRINGE 0 ML IV ONE (10:00)
[2022-02-04] MEDS ORDERED: FUROSEMIDE INJ 20 MG/2 ML VIAL IV ONE (10:00)
[2022-02-04] MEDS ORDERED: NOREPINEPHRINE/D5W 4 MG/250 ML PLCT IV SCH (11:30)
[2022-02-04 12:29] LABS: Hematocrit (blood only) 36.5 % (42-52); Hemoglobin 12.6 g/dL (14.0-18.0); Mean Corpuscular Hemoglobin 32.5 pg (25-34); Mean Corpuscular Hgb Conc 34.5 g/dL (32-36); Mean Corpuscular Volume 94.1 fL (80-100); Mean Platelet Volume 10.6 fL (7.4-10.4); Platelet Count 169 K/uL (130-400); RDW Coefficient of Variation 14.2 % (11.5-14.5); RDW Standard Deviation 48.4 fL (36.4-46.3); Red Blood Count 3.88 M/uL (4.7-6.1); White Blood Count 14.07 K/uL (4.8-10.8)
[2022-02-04 12:44] LABS: Partial Thromboplastin Time 28.1 Seconds (21.0-31.0); Prothrombin Time 10.7 Seconds (9.0-12.0)
[2022-02-04 13:04] LABS: Basophils # (auto) 0.01 K/uL (0-0.2); Basophils % (auto) 0.1 %; Eosinophils # (auto) 0.01 K/uL (0-0.5); Eosinophils % (auto) 0.1 %; Immature Granulocytes # (auto) 0.04 K/uL (0.00-0.02); Immature Granulocytes % (auto) 0.3 %; Lymphocytes % (auto) 7.8 %; Monocytes # (auto) 1.12 K/uL (0.11-0.59); Neutrophils # (auto) 11.79 K/uL (1.4-6.5); Neutrophils % (auto) 83.7 %
[2022-02-04 13:10] LABS: BUN Creatinine Ratio 12.6 (10-20); Calcium 7.7 mg/dl (8.5-10.1); Creatinine Clr Calc Pharmacy 70.1 ml/min; Est GFR (African American) 83.1 ml/min; Est GFR (Non-African American) 71.7 ml/min; Magnesium 2.1 mg/dl (1.7-2.4); Phosphorus 3.6 mg/dl (2.5-4.9)
[2022-02-04] MEDS: ENOXAPARIN INJ 40 MG/0.4 ML SYR SQ SCH (13:27)
[2022-02-04] MEDS: ATORVASTATIN 40 MG TAB PO SCH (15:25)
--- NOTE | 2022-02-04 16:34 | Cardiology Progress Note ---
Date of Service February 04, 2022 Assessment & Plan (1) Cardiac arrest: Plan: 2. Posterior Acute MIpost PCI with ROBIN to proximal circumflex 3. Cardiogenic shock 4. Ischemic cardiomyopathyEF 45 to 50%, lateral/inferolateral wall motion abnormality 5. Moderate residual on culprit coronary artery [id number] proximal to mid LAD, 50% mid RCA 6. Prolonged QTC -- resolved 7. Anoxic encephalopathy Rewarmed, extubated and answering questions Chest pain free. Troponin peaked Hemodynamically and electrically stable off pressors/inotropes Mild congestion on exam but well perfused. Renal function stable, UOP modest continue DAPT with ASA/ticagrelor -- additional IV lasix 40mg today -- start low dose metoprolol 12.5 mg tonight as BP allows Continue statin Likely transition to telemetry tomorrow. Appreciate ICU and hospital medicine care. Admission and Anticipated Discharge Date Admission Date: February 02, 2022 Subjective Extubated this morning. Somewhat confused but answering questions appropriately. Only endorses back pain. Some short term memory loss. Review of Systems Review of Systems: All systems reviewed & are unremarkable except as noted in HPI & below Physical Exam Physical Exam: General: Awake, alert HEENT: Sclerae anicteric Lungs: Coarse breath sounds with scattered wheezes. No crackles Cardiac: Regular, no murmurs +JVP ~10 Vascular: Right radial artery access site with no ecchymosis or hematoma 2+ right radial. Abdomen: Soft, few bowel sounds Extremities: lower extremities warm, No edema Results & Data ([facility]) Vital Signs (Past 12 Hours) Vital Signs Temp Temp Temp Pulse Resp BP BP 02/04/22 15:30 99.1 F 88 16 103/52 L 02/04/22 15:15 99.0 F 84 15 111/60 02/04/22 15:00 99.0 F 78 13 98/53 L 02/04/22 14:45 98.8 F 90 14 115/70 02/04/22 14:15 98.8 F 86 12 106/59 L 02/04/22 14:00 98.8 F 81 13 107/57 L 02/04/22 13:45 98.8 F 86 11 L 105/62 02/04/22 13:30 98.8 F 81 11 L 99/56 L 02/04/22 13:15 98.6 F 87 17 105/61 02/04/22 13:00 99.0 F 78 12 97/56 L 02/04/22 12:45 99.0 F 84 20 107/64 02/04/22 12:31 99.0 F 19 100/56 L 02/04/22 12:29 98.8 F 88 15 89/51 L 02/04/22 12:00 99.0 F 101 H 22 105/60 02/04/22 11:46 99.0 F 92 H 14 85/53 L 02/04/22 11:31 99.0 F 100 H 14 106/54 L 02/04/22 11:15 98.6 F 94 H 22 103/58 L 02/04/22 11:04 98.6 F 90 14 103/60 02/04/22 11:00 98.4 F 85 20 02/04/22 10:45 98.6 F 91 H 14 90/52 L 02/04/22 10:30 98.6 F 84 17 102/58 L 02/04/22 10:15 99.0 F 86 15 93/60 L 02/04/22 10:00 98.6 F 89 14 88/56 L 02/04/22 09:45 98.6 F 94 H 12 83/54 L 02/04/22 09:30 98.2 F 104 H 16 98/56 L 02/04/22 09:25 98.4 F 109 H 16 107/65 02/04/22 09:18 98.1 F 109 H 23 108/64 02/04/22 09:15 98.1 F 97 H 14 74/55 L 02/04/22 09:00 97.9 F 109 H 18 111/58 L 02/04/22 08:45 97.9 F 100 H 11 L 95/59 L 02/04/22 08:30 97.7 F 107 H 17 106/59 L 02/04/22 08:16 97.3 F L 118 H 14 110/62 02/04/22 08:15 97.3 F L 109 H 13 02/04/22 08:00 97.2 F L 97.3 F L 97.3 F L 106 H 28 H 112/63 133/51 L 02/04/22 07:30 96.8 F L 96.8 F L 104 H 24 128/49 L 02/04/22 07:10 111 H 27 H 02/04/22 07:00 102 H 02/04/22 06:30 95.5 F L 95.5 F L 103 H 19 125/49 L 02/04/22 05:30 94.8 F L 95 F L 105 H 17 136/59 L BP Pulse Ox Pulse Ox 02/04/22 15:30 92 02/04/22 15:15 94 02/04/22 15:00 95 02/04/22 14:45 91 02/04/22 14:15 94 02/04/22 14:00 94 02/04/22 13:45 96 02/04/22 13:30 94 02/04/22 13:15 94 02/04/22 13:00 95 02/04/22 12:45 94 02/04/22 12:31 92 02/04/22 12:29 02/04/22 12:00 91 02/04/22 11:46 93 02/04/22 11:31 90 02/04/22 11:15 91 02/04/22 11:04 92 02/04/22 11:00 93 02/04/22 10:45 96 02/04/22 10:30 91 02/04/22 10:15 96 02/04/22 10:00 96 02/04/22 09:45 93 02/04/22 09:30 96 02/04/22 09:25 88 L 02/04/22 09:18 94 02/04/22 09:15 91 02/04/22 09:00 96 02/04/22 08:45 98 02/04/22 08:30 97 02/04/22 08:16 95 02/04/22 08:15 96 02/04/22 08:00 112/63 95 96 02/04/22 07:30 120/76 96 02/04/22 07:10 92 02/04/22 07:00 02/04/22 06:30 111/65 96 02/04/22 05:30 120/66 96 PG Care Time/CCT Total # of Minutes Spent Total Time Spent with Patient: Total time spent is greater than 50% in coordination of care (as documented) at patient's floor/unit and/or counseling patient: Coding Level of Care Code 42054 Subseq Hosp Care Lvl 3 Diagnoses Cardiac arrest I46.9
[2022-02-04] MEDS ORDERED: FUROSEMIDE 40 MG/4 ML VIAL IV ONE (16:35)
--- NOTE | 2022-02-04 17:48 | Electrocardiogram Report ---
Test Reason : Blood Pressure : / mmHG Vent. Rate : 050 BPM Atrial Rate : 050 BPM P-R Int : 212 ms QRS Dur : 094 ms QT Int : 592 ms P-R-T Axes : 012 055 069 degrees QTc Int : 539 ms Sinus bradycardia with 1st degree A-V block with Premature supraventricular complexes Nonspecific ST abnormality , consider electrolyte abnormality Prolonged QT Abnormal ECG When compared with ECG of 03-FEB-2022 04:55, (unconfirmed) Premature supraventricular complexes are now Present Confirmed by Hamlet Cordero ([id number]) on 02/04/2022 5:47:41 PM Referred By: REFERRED SELF Confirmed By:Dayday Cordero
--- NOTE | 2022-02-04 17:51 | Electrocardiogram Report ---
Test Reason : Blood Pressure : / mmHG Vent. Rate : 071 BPM Atrial Rate : 071 BPM P-R Int : 204 ms QRS Dur : 082 ms QT Int : 492 ms P-R-T Axes : 000 045 032 degrees QTc Int : 534 ms Poor data quality, interpretation may be adversely affected Normal sinus rhythm Prolonged QT Abnormal ECG When compared with ECG of 03-FEB-2022 08:23, (unconfirmed) Premature supraventricular complexes are no longer Present Nonspecific T wave abnormality now evident in Inferior leads Confirmed by Hamlet Cordero ([id number]) on 02/04/2022 5:51:36 PM Referred By: REFERRED SELF Confirmed By:Dayday Cordero
--- NOTE | 2022-02-04 17:58 | Electrocardiogram Report ---
Test Reason : Blood Pressure : / mmHG Vent. Rate : 095 BPM Atrial Rate : 095 BPM P-R Int : 194 ms QRS Dur : 082 ms QT Int : 434 ms P-R-T Axes : 000 043 042 degrees QTc Int : 545 ms Poor data quality, interpretation may be adversely affected Normal sinus rhythm Prolonged QT Abnormal ECG When compared with ECG of 03-FEB-2022 11:55, (unconfirmed) No significant change was found Confirmed by Hamlet Cordero ([id number]) on 02/04/2022 5:57:58 PM Referred By: REFERRED SELF Confirmed By:Dayday Cordero
--- NOTE | 2022-02-04 18:07 | Hospitalist Progress Note ---
Date of Service February 04, 2022 Assessment & Plan (1) Cardiac arrest: Plan: Cardiac Arrest Posterior STEMI S/P PCI (ROBIN to proximal circumflex) Cardiogenic shock Ischemic cardiomyopathy Coronary artery disease Prolonged QTC --ECHO: Normal LV size, borderline concentric LVH, EF 45 to 50%, akinetic inferolateral wall. Moderately hypokinetic basal to mid lateral wall. No significant valvular pathology. Normal RV size and function. Pressors weaned off Completed therapeutic hypothermia protocol Appreciate director call center sales, cardiology input Continue aspirin, Brilinta, statin, Metoprolol Monitor I's and O's, daily weight IV Lasix as needed Monitor volume status Acute Respiratory failure secondary to cardiac arrest S/P Intubation Vent support as per ICU team EEG suggestive of anoxic encephalopathy Reorient frequently Acute kidney injury Hypokalemia Replace electrolytes as needed Received gentle IV fluids Monitor renal function Avoid nephrotoxic agents as able Cr back to baseline Hyperglycemia HbA1c 5.5 Ongoing tobacco abuse Counseled to quit as able DVT Px: Lovenox SQ Code Status Full code Admission and Anticipated Discharge Date Admission Date: February 02, 2022 Subjective Patient is seen and examined at bedside Extubated this morning Patient follows simple commands Received a dose of Lasix this morning Off pressors currently Completed hypothermia protocol Review of Systems Review of Systems: All systems reviewed & are unremarkable except as noted in Subjective Physical Exam Physical Exam: Physical Exam: Vitals signs as noted above General Appearance:Moderately built and nourished, no apparent distress Head: normocephalic, Atraumatic Eyes: normal inspection Neck: supple, Trachea midline Respiratory/Chest: Normal breath sounds, CTA Cardiovascular: S1, S2, No murmur Abdomen/GI:Soft, Non tender, Bowel sounds present Extremities/Musculoskeletal:normal inspection, no edema Neurologic/Psych: Alert, awake, oriented to person, grossly no focal deficits Skin: normal color, warm Results & Data Results & Data ([facility]) Vital Signs (Past 12 Hours) Vital Signs Temp Temp Temp Pulse Resp BP BP 02/04/22 17:45 37.1 C 82 15 99/54 L 02/04/22 17:30 37.2 C 83 14 103/61 02/04/22 17:15 37.3 C 81 15 104/59 L 02/04/22 17:00 37.3 C 96 H 22 112/68 02/04/22 16:30 37.4 C 88 17 91/55 L 02/04/22 16:15 37.4 C 84 13 112/63 02/04/22 16:12 37.4 C 98 H 27 H 130/70 02/04/22 16:00 37.4 C 92 H 20 02/04/22 15:30 37.3 C 88 16 103/52 L 02/04/22 15:15 37.2 C 84 15 111/60 02/04/22 15:00 37.2 C 78 13 98/53 L 02/04/22 14:45 37.1 C 90 14 115/70 02/04/22 14:15 37.1 C 86 12 106/59 L 02/04/22 14:00 37.1 C 81 13 107/57 L 02/04/22 13:45 37.1 C 86 11 L 105/62 02/04/22 13:30 37.1 C 81 11 L 99/56 L 02/04/22 13:15 37.0 C 87 17 105/61 02/04/22 13:00 37.2 C 78 12 97/56 L 02/04/22 12:45 37.2 C 84 20 107/64 02/04/22 12:31 37.2 C 19 100/56 L 02/04/22 12:29 37.1 C 88 15 89/51 L 02/04/22 12:00 37.2 C 101 H 22 105/60 02/04/22 11:46 37.2 C 92 H 14 85/53 L 02/04/22 11:31 37.2 C 100 H 14 106/54 L 02/04/22 11:15 37.0 C 94 H 22 103/58 L 02/04/22 11:04 37.0 C 90 14 103/60 02/04/22 11:00 36.9 C 85 20 02/04/22 10:45 37.0 C 91 H 14 90/52 L 02/04/22 10:30 37.0 C 84 17 102/58 L 02/04/22 10:15 37.2 C 86 15 93/60 L 02/04/22 10:00 37.0 C 89 14 88/56 L 02/04/22 09:45 37.0 C 94 H 12 83/54 L 02/04/22 09:30 36.8 C 104 H 16 98/56 L 02/04/22 09:25 36.9 C 109 H 16 107/65 02/04/22 09:18 36.7 C 109 H 23 108/64 02/04/22 09:15 36.7 C 97 H 14 74/55 L 02/04/22 09:00 36.6 C 109 H 18 111/58 L 02/04/22 08:45 36.6 C 100 H 11 L 95/59 L 02/04/22 08:30 36.5 C 107 H 17 106/59 L 02/04/22 08:16 36.3 C L 118 H 14 110/62 02/04/22 08:15 36.3 C L 109 H 13 02/04/22 08:00 36.2 C L 36.3 C L 36.3 C L 106 H 28 H 112/63 133/51 L 02/04/22 07:30 36 C L 36 C L 104 H 24 128/49 L 02/04/22 07:10 111 H 27 H 02/04/22 07:00 102 H 02/04/22 06:30 35.3 C L 35.3 C L 103 H 19 125/49 L BP Pulse Ox Pulse Ox 02/04/22 17:45 94 02/04/22 17:30 95 02/04/22 17:15 94 02/04/22 17:00 87 L 02/04/22 16:30 94 02/04/22 16:15 94 02/04/22 16:12 89 L 02/04/22 16:00 91 02/04/22 15:30 92 02/04/22 15:15 94 02/04/22 15:00 95 02/04/22 14:45 91 02/04/22 14:15 94 02/04/22 14:00 94 02/04/22 13:45 96 02/04/22 13:30 94 02/04/22 13:15 94 02/04/22 13:00 95 02/04/22 12:45 94 02/04/22 12:31 92 02/04/22 12:29 02/04/22 12:00 91 02/04/22 11:46 93 02/04/22 11:31 90 02/04/22 11:15 91 02/04/22 11:04 92 02/04/22 11:00 93 02/04/22 10:45 96 02/04/22 10:30 91 02/04/22 10:15 96 02/04/22 10:00 96 02/04/22 09:45 93 02/04/22 09:30 96 02/04/22 09:25 88 L 02/04/22 09:18 94 02/04/22 09:15 91 02/04/22 09:00 96 02/04/22 08:45 98 02/04/22 08:30 97 02/04/22 08:16 95 02/04/22 08:15 96 02/04/22 08:00 112/63 95 96 02/04/22 07:30 120/76 96 02/04/22 07:10 92 02/04/22 07:00 02/04/22 06:30 111/65 96 Laboratory Results Short CBC 02/03/22 02/04/22 02/04/22 Range/Units 18:22 00:24 06:20 WBC 13.52 H 9.86 10.83 H (4.8-10.8) K/uL Hgb 13.6 L 12.7 L 12.9 L (14.0-18.0) g/dL Hct 37.7 L 36.6 L 37.2 L (42-52) % Plt Count 164 142 155 (130-400) K/uL 02/04/22 Range/Units 12:14 WBC 14.07 H (4.8-10.8) K/uL Hgb 12.6 L (14.0-18.0) g/dL Hct 36.5 L (42-52) % Plt Count 169 (130-400) K/uL BMP 02/03/22 02/04/22 02/04/22 18:22 00:24 06:20 Sodium 139 139 138 Potassium 4.3 3.8 4.1 Chloride 106 106 104 Carbon Dioxide 27 28 30 BUN 15 14 13 Creatinine 1.00 0.88 0.90 Glucose 93 122 H 84 Calcium 7.6 L 7.5 L 7.5 L 02/04/22 12:14 Sodium 139 Potassium 4.0 Chloride 103 Carbon Dioxide 26 BUN 13 Creatinine 1.03 Glucose 102 H Calcium 7.7 L
--- NOTE | 2022-02-04 18:07 | Electrocardiogram Report ---
Test Reason : Blood Pressure : / mmHG Vent. Rate : 073 BPM Atrial Rate : 073 BPM P-R Int : 202 ms QRS Dur : 096 ms QT Int : 512 ms P-R-T Axes : 070 049 040 degrees QTc Int : 564 ms Normal sinus rhythm Prolonged QT Abnormal ECG When compared with ECG of 03-FEB-2022 16:29, (unconfirmed) ST no longer depressed in Anterior leads Confirmed by Hamlet Cordero ([id number]) on 02/04/2022 6:06:36 PM Referred By: REFERRED SELF Confirmed By:Dayday Cordero
--- NOTE | 2022-02-04 18:08 | Electrocardiogram Report ---
Test Reason : Blood Pressure : / mmHG Vent. Rate : 098 BPM Atrial Rate : 098 BPM P-R Int : 210 ms QRS Dur : 092 ms QT Int : 394 ms P-R-T Axes : 060 044 036 degrees QTc Int : 503 ms Poor data quality, interpretation may be adversely affected Sinus rhythm with 1st degree A-V block Nonspecific ST abnormality Prolonged QT Abnormal ECG When compared with ECG of 03-FEB-2022 21:05, (unconfirmed) QT has shortened Confirmed by Hamlet Cordero ([id number]) on 02/04/2022 6:08:35 PM Referred By: REFERRED SELF Confirmed By:Dayday Cordero
--- NOTE | 2022-02-04 18:09 | Electrocardiogram Report ---
Test Reason : Blood Pressure : / mmHG Vent. Rate : 100 BPM Atrial Rate : 100 BPM P-R Int : 198 ms QRS Dur : 080 ms QT Int : 376 ms P-R-T Axes : 077 048 024 degrees QTc Int : 485 ms Poor data quality, interpretation may be adversely affected Normal sinus rhythm with 1st degree AV block Possible Inferior infarct , age undetermined Abnormal ECG When compared with ECG of 04-FEB-2022 01:57, (unconfirmed) No significant change was found Confirmed by Hamlet Cordero ([id number]) on 02/04/2022 6:09:12 PM Referred By: REFERRED SELF Confirmed By:Dayday Cordero
--- NOTE | 2022-02-04 18:11 | Electrocardiogram Report ---
Test Reason : Blood Pressure : / mmHG Vent. Rate : 108 BPM Atrial Rate : 108 BPM P-R Int : 210 ms QRS Dur : 084 ms QT Int : 332 ms P-R-T Axes : 073 051 033 degrees QTc Int : 444 ms Poor data quality, interpretation may be adversely affected Sinus tachycardia with 1st degree A-V block Otherwise normal ECG When compared with ECG of 04-FEB-2022 04:57, (unconfirmed) No significant change was found Confirmed by Hmalet Cordero ([id number]) on 02/04/2022 6:11:09 PM Referred By: REFERRED SELF Confirmed By:Dayday Cordero
--- NOTE | 2022-02-04 18:17 | Electrocardiogram Report ---
Test Reason : Blood Pressure : / mmHG Vent. Rate : 094 BPM Atrial Rate : 094 BPM P-R Int : 206 ms QRS Dur : 108 ms QT Int : 384 ms P-R-T Axes : 072 050 091 degrees QTc Int : 480 ms Normal sinus rhythm Possible Left atrial enlargement ST depression, consider subendocardial injury Prolonged QT Abnormal ECG When compared with ECG of 02-FEB-2022 18:13, (unconfirmed) ST no longer depressed in Inferior leads ST less depressed in Anterior leads ST now depressed in Lateral leads QT has lengthened Confirmed by Hamlet Cordero ([id number]) on 02/04/2022 6:17:14 PM Referred By: REFERRED SELF Confirmed By:Dayday Cordero
[2022-02-04 19:17] LABS: Eosinophils # (auto) 0.01 K/uL (0-0.5); Eosinophils % (auto) 0.1 %; Hematocrit (blood only) 35.4 % (42-52); Hemoglobin 12.3 g/dL (14.0-18.0); Immature Granulocytes # (auto) 0.01 K/uL (0.00-0.02); Immature Granulocytes % (auto) 0.1 %; Lymphocytes # (auto) 1.22 K/uL (1.2-3.4); Lymphocytes % (auto) 10.5 %; Mean Corpuscular Hemoglobin 32.9 pg (25-34); Mean Corpuscular Hgb Conc 34.7 g/dL (32-36); Mean Corpuscular Volume 94.7 fL (80-100); Mean Platelet Volume 10.6 fL (7.4-10.4); Monocytes # (auto) 0.95 K/uL (0.11-0.59); Monocytes % (auto) 8.1 %; Neutrophils # (auto) 9.48 K/uL (1.4-6.5); Neutrophils % (auto) 81.2 %; Platelet Count 163 K/uL (130-400); RDW Coefficient of Variation 13.9 % (11.5-14.5); Red Blood Count 3.74 M/uL (4.7-6.1); White Blood Count 11.67 K/uL (4.8-10.8)
[2022-02-04 19:35] LABS: INR 1.1 (0.9-1.1); Partial Thromboplastin Ratio 1.2; Prothrombin Time 11.2 Seconds (9.0-12.0)
[2022-02-04 20:00] LABS: BUN Creatinine Ratio 12.1 (10-20); Calcium 7.8 mg/dl (8.5-10.1); Creatinine Clr Calc Pharmacy 67.5 ml/min; Est GFR (African American) 79.4 ml/min; Est GFR (Non-African American) 68.5 ml/min; Phosphorus 3.3 mg/dl (2.5-4.9); Potassium 4.1 mmol/L (3.5-5.1)
[2022-02-04] MEDS: METOPROLOL TARTRATE 1 MG/ML VIAL IV SCH (23:13)
[2022-02-05 01:01] LABS: Basophils # (auto) 0.01 K/uL (0-0.2); Basophils % (auto) 0.1 %; Eosinophils # (auto) 0.02 K/uL (0-0.5); Eosinophils % (auto) 0.2 %; Hematocrit (blood only) 33.7 % (42-52); Hemoglobin 11.7 g/dL (14.0-18.0); Immature Granulocytes # (auto) 0.04 K/uL (0.00-0.02); Immature Granulocytes % (auto) 0.4 %; Lymphocytes % (auto) 13.3 %; Mean Corpuscular Hgb Conc 34.7 g/dL (32-36); Mean Corpuscular Volume 94.9 fL (80-100); Mean Platelet Volume 10.7 fL (7.4-10.4); Monocytes # (auto) 0.89 K/uL (0.11-0.59); Monocytes % (auto) 8.5 %; Neutrophils # (auto) 8.15 K/uL (1.4-6.5); Neutrophils % (auto) 77.5 %; Platelet Count 155 K/uL (130-400); RDW Coefficient of Variation 13.7 % (11.5-14.5); RDW Standard Deviation 47.7 fL (36.4-46.3); Red Blood Count 3.55 M/uL (4.7-6.1); White Blood Count 10.51 K/uL (4.8-10.8)
[2022-02-05 01:04] LABS: INR 1.1 (0.9-1.1); Partial Thromboplastin Ratio 1.1; Partial Thromboplastin Time 31.3 Seconds (21.0-31.0); Prothrombin Time 11.5 Seconds (9.0-12.0)
[2022-02-05 01:20] LABS: BUN Creatinine Ratio 13.6 (10-20); Calcium 7.7 mg/dl (8.5-10.1); Creatinine Clr Calc Pharmacy 70.1 ml/min; Est GFR (African American) 83.1 ml/min; Est GFR (Non-African American) 71.7 ml/min; Phosphorus 2.7 mg/dl (2.5-4.9); Potassium 3.7 mmol/L (3.5-5.1)
[2022-02-05] MEDS: METOPROLOL TARTRATE 1 MG/ML VIAL IV SCH ×2 (05:19→14:36)
[2022-02-05] MEDS ORDERED: FUROSEMIDE 40 MG/4 ML VIAL IV ONE (05:45)
[2022-02-05 06:09] LABS: Hematocrit (blood only) 35.7 % (42-52); Hemoglobin 12.5 g/dL (14.0-18.0); Immature Granulocytes # (auto) 0.02 K/uL (0.00-0.02); Immature Granulocytes % (auto) 0.2 %; Lymphocytes # (auto) 1.25 K/uL (1.2-3.4); Lymphocytes % (auto) 12.1 %; Mean Corpuscular Hemoglobin 33.2 pg (25-34); Mean Corpuscular Volume 94.9 fL (80-100); Mean Platelet Volume 10.8 fL (7.4-10.4); Monocytes # (auto) 0.66 K/uL (0.11-0.59); Monocytes % (auto) 6.4 %; Neutrophils # (auto) 8.44 K/uL (1.4-6.5); Neutrophils % (auto) 81.3 %; Platelet Count 169 K/uL (130-400); RDW Coefficient of Variation 13.9 % (11.5-14.5); RDW Standard Deviation 47.7 fL (36.4-46.3); Red Blood Count 3.76 M/uL (4.7-6.1); White Blood Count 10.37 K/uL (4.8-10.8)
[2022-02-05 06:20] LABS: BUN Creatinine Ratio 16.7 (10-20); Calcium 8.1 mg/dl (8.5-10.1); Creatinine Clr Calc Pharmacy 80.2 ml/min; Est GFR (African American) 97.9 ml/min; Est GFR (Non-African American) 84.4 ml/min; Magnesium 2.1 mg/dl (1.7-2.4); Phosphorus 2.5 mg/dl (2.5-4.9); Potassium 3.8 mmol/L (3.5-5.1)
--- NOTE | 2022-02-05 06:57 | Critical Care Progress Note ---
Date of Service February 05, 2022 Assessment & Plan (1) Admitted to intensive care unit: Plan: Reason Critically Ill: 71-year-old male with out of hospital cardiac arrest with ROSC in the field. Patient status post PTCI with ROBIN x1 to the circumflex requiring ongoing management and therapeutic hypothermia per institution protocol. NEURO - * encephalopathy: improvement * s/p Cardiac arrest. * Likely degree of anoxia. CARDIAC/VASCULAR - * Out of hospital cardiac arrest w/ ROSC who is s/p PTCI w/ ROBIN x1 to the circumflex. * DAPT Rx per cardiology. * No vasoactives for > 24 hours * Monitor on telemetry. RESPIRATORY - * Respiratory failure secondary to cardiac arrest: Resolved GI/NUTRITION - * Failed bedside swallow - speech evaluation RENAL/LYTES - * YULI: Resolved - * Pyle: discontinue ENDO - * No reported h/o DM or Thyroid Dz * BSGs per unit protocol. HEME - * Stable H&H ID - * No concerns for infectious contribution currently. LINES/IV ACCESS - * PIVs x2 * Pyle: discontinue today DVT PROPHYLAXIS - * SCDs * Lovenox 40 mg daily * Sable for downgrade out of ICU (2) Cardiac arrest: (3) S/P PTCA (percutaneous transluminal coronary angioplasty): (4) S/P drug eluting coronary stent placement: Admission and Anticipated Discharge Date Admission Date: February 02, 2022 Subjective No overnight events Physical Exam Physical Exam: General: Alert. nontoxic. Skin: Warm, dry, Head: Atraumatic Ears, nose, mouth and throat: airway patent Cardiovascular: Normal peripheral perfusion Respiratory: no respiratory distress Gastrointestinal: Non distended Musculoskeletal: No deformity Results & Data Results & Data ([facility]) Vital Signs (Past 12 Hours) Vital Signs Temp Pulse Resp BP Pulse Ox Pulse Ox 02/05/22 06:00 90 25 H 120/75 93 02/05/22 05:30 88 27 H 125/64 93 02/05/22 05:19 77 116/68 02/05/22 05:00 87 15 116/68 93 02/05/22 04:30 36.8 C 80 16 105/46 L 90 02/05/22 04:00 89 22 115/63 89 L 02/05/22 03:02 78 19 92 02/05/22 03:01 137/76 02/05/22 02:59 94 H 27 H 88 L 02/05/22 02:30 85 20 122/59 L 90 02/05/22 02:00 79 19 102/69 87 L 02/05/22 01:30 76 14 83/53 L 94 02/05/22 01:00 83 14 120/63 91 02/05/22 00:30 80 13 118/60 93 02/05/22 00:00 78 17 99/55 L 93 95 02/04/22 23:38 87 02/04/22 23:30 86 24 114/59 L 94 02/04/22 23:15 36.8 C 89 21 129/62 87 L 02/04/22 23:13 96 H 112/61 02/04/22 23:00 84 19 112/61 88 L 02/04/22 22:45 93 H 23 128/66 89 L 02/04/22 22:30 81 16 106/61 89 L 02/04/22 22:15 83 17 113/57 L 91 02/04/22 22:00 81 15 107/58 L 91 02/04/22 21:45 88 15 108/68 91 02/04/22 21:30 88 23 140/72 89 L 02/04/22 21:15 99 H 21 121/71 88 L 02/04/22 21:00 79 14 106/58 L 91 02/04/22 20:45 82 16 103/60 92 02/04/22 20:30 89 14 104/67 90 02/04/22 20:16 106 H 20 113/62 89 L 02/04/22 20:00 96 H 25 H 129/66 87 L 02/04/22 19:45 85 18 115/56 L 91 02/04/22 19:30 85 14 101/56 L 92 02/04/22 19:15 99 H 19 134/69 90 02/04/22 19:00 81 13 105/57 L 91 Critical Care Results & Data Vital Signs (Past 12 Hours) Vital Signs Temp Pulse Resp BP Pulse Ox Pulse Ox 02/05/22 06:00 90 25 H 120/75 93 02/05/22 05:30 88 27 H 125/64 93 02/05/22 05:19 77 116/68 02/05/22 05:00 87 15 116/68 93 02/05/22 04:30 36.8 C 80 16 105/46 L 90 02/05/22 04:00 89 22 115/63 89 L 02/05/22 03:02 78 19 92 02/05/22 03:01 137/76 02/05/22 02:59 94 H 27 H 88 L 02/05/22 02:30 85 20 122/59 L 90 02/05/22 02:00 79 19 102/69 87 L 02/05/22 01:30 76 14 83/53 L 94 02/05/22 01:00 83 14 120/63 91 02/05/22 00:30 80 13 118/60 93 02/05/22 00:00 78 17 99/55 L 93 95 02/04/22 23:38 87 02/04/22 23:30 86 24 114/59 L 94 02/04/22 23:15 36.8 C 89 21 129/62 87 L 02/04/22 23:13 96 H 112/61 02/04/22 23:00 84 19 112/61 88 L 02/04/22 22:45 93 H 23 128/66 89 L 02/04/22 22:30 81 16 106/61 89 L 02/04/22 22:15 83 17 113/57 L 91 02/04/22 22:00 81 15 107/58 L 91 02/04/22 21:45 88 15 108/68 91 02/04/22 21:30 88 23 140/72 89 L 02/04/22 21:15 99 H 21 121/71 88 L 02/04/22 21:00 79 14 106/58 L 91 02/04/22 20:45 82 16 103/60 92 02/04/22 20:30 89 14 104/67 90 02/04/22 20:16 106 H 20 113/62 89 L 02/04/22 20:00 96 H 25 H 129/66 87 L 02/04/22 19:45 85 18 115/56 L 91 02/04/22 19:30 85 14 101/56 L 92 02/04/22 19:15 99 H 19 134/69 90 02/04/22 19:00 81 13 105/57 L 91 Lab & Micro Results (Past 24 Hours) RBC 3.76 M/uL (4.7-6.1) L 02/05/22 WBC 10.37 K/uL (4.8-10.8) 02/05/22 Hgb 12.5 g/dL (14.0-18.0) L 02/05/22 Hct 35.7 % (42-52) L 02/05/22 MCV 94.9 fL (80-100) 02/05/22 MCH 33.2 pg (25-34) 02/05/22 MCHC 35.0 g/dL (32-36) 02/05/22 RDW Standard Deviation 47.7 fL (36.4-46.3) H 02/05/22 RDW Coefficient of Variation 13.9 % (11.5-14.5) 02/05/22 Plt Count 169 K/uL (130-400) 02/05/22 MPV 10.8 fL (7.4-10.4) H 02/05/22 Neutrophils (%) (Auto) 81.3 % 02/05/22 Lymphocytes (%) (Auto) 12.1 % 02/05/22 Monocytes # (Auto) 0.66 K/uL (0.11-0.59) H 02/05/22 Eosinophils # (Auto) 0.00 K/uL (0-0.5) 02/05/22 Immature Granulocyte % (Auto) 0.2 % 02/05/22 Neutrophils # (Auto) 8.44 K/uL (1.4-6.5) H 02/05/22 Lymphocytes # (Auto) 1.25 K/uL (1.2-3.4) 02/05/22 Monocytes # (Auto) 0.66 K/uL (0.11-0.59) H 02/05/22 Eosinophils # (Auto) 0.00 K/uL (0-0.5) 02/05/22 Basophils # (Auto) 0.00 K/uL (0-0.2) 02/05/22 Immature Granulocyte # (Auto) 0.02 K/uL (0.00-0.02) 02/05/22 Na 137 mmol/L (136-145) 02/05/22 K 3.8 mmol/L (3.5-5.1) 02/05/22 Cl 102 mmol/L (98-107) 02/05/22 CO2 27 mmol/L (21-32) 02/05/22 Anion Gap 8 (3-11) 02/05/22 BUN 15 mg/dl (6-23) 02/05/22 Creatinine 0.90 mg/dl (0.6-1.4) 02/05/22 Estimated GFR ( Amer) 97.9 ml/min 02/05/22 Estimated GFR (Non-Af Amer) 84.4 ml/min 02/05/22 BUN/Creatinine Ratio 16.7 (10-20) 02/05/22 Glu 107 mg/dl (70-99(Fasting)) H 02/05/22 Ca 8.1 mg/dl (8.5-10.1) L 02/05/22 Phosphorus Level 2.5 mg/dl (2.5-4.9) 02/05/22 Mg 2.1 mg/dl (1.7-2.4) 02/05/22 05:54 02/05/22 Calcium Level 8.1 mg/dl (8.5-10.1) L 02/05/22 05:54 02/05/22 Prothromb Time International Ratio 1.1 (0.9-1.1) 02/05/22 00:40 02/05/22 Suleman Test NA 02/04/22 07:23 02/04/22 Diagnostic Findings (Past 24 Hours) Chest X-Ray 02/04/22 07:00 XR chest 1V portable HISTORY: 71 years-old Male ntubated acute respiratory failure COMPARISON: Chest radiograph 02/03/2022 TECHNIQUE: Portable AP view of the chest FINDINGS: Cardiac silhouette is mildly enlarged. Endotracheal tube terminates well above the maya appears to be in satisfactory positioning. Enteric tube courses into the stomach with distal tip outside the [id number]. Left subclavian central venous catheter appears unchanged. No pneumothorax or large pleural effusion. Pulmonary vascular congestion has mildly improved. Mild linear right midlung and left basilar atelectasis versus scarring. Degenerative changes of the shoulders and spine. IMPRESSION: 1. Cardiomegaly with mildly improved pulmonary vascular congestion. 2. Stable positioning of the life-support lines and tubes. 3. No pneumothorax. ACT 112: Negative or not required by law. The above report was generated using voice recognition software. It may contain grammatical, syntax or spelling errors. Electronically signed by: Dudley Albright M.D. 02/04/2022 8:05 AM I & O Totals 24 Hours 02/03/22 02/04/22 02/05/22 06:59 06:59 06:59 Intake Total 1833.217 / 5030.921 6342.512 / 4402.512 343.933 / 343.933 Output Total 1686 / 1686 2096 / 2096 2915 / 2915 Balance 147.217 / 134.735 3279.512 / 2306.512 -2571.067 / -2571.067 Cumulative 02/02/22 17:40 thru 02/05/22 06:00 Intake Total 6579.662 Output Total 6697 Balance -117.338 RT Ventilator Mngmt (Last Documented) Ventilator Ordered Settings Ventilator Support Mode Assist Control 02/04/22 08:00 Respiratory Rate 25 02/05/22 06:00 Ventilator Tidal Volume 450 02/04/22 08:00 Setting Minute Ventilation 9.8 02/04/22 07:10 Positive End Expiratory 5 02/04/22 08:00 Pressure Fraction of Inspired Oxygen 40 02/04/22 08:00 Machine Comment peep decreased to +5, RN notified 02/03/22 22:12 Ventilator - PT Measurements Respiratory Rate 25 Exhaled Tidal Volume 435 Minute Ventilation 9.8 Peak Inspiratory Airway 26 Pressure Plateau Pressure 21 Respiratory Cycle Inspiratory: 1:2.9 Expiratory Ratio Inspiratory Phase Time 0.7 End-Tidal CO2 36 Static Lung Compliance 27.19 Dynamic Lung Compliance 20.71 Normal Static Lung Compliance 46.00 Patient Measurements Comment Patient extubated per verbal order from Dr. Son. Patient tolerated extubation very well. Placed on a 40% Aerosol Mask. SpO2 96%. Nurse at bedside assisting. Coding Level of Care Code 12723 Subseq Hosp Care Lvl 3 Diagnoses Admitted to intensive care unit Z78.9 Cardiac arrest I46.9 S/P PTCA (percutaneous transluminal coronary angioplasty) Z98.61 S/P drug eluting coronary stent placement Z95.5
--- NOTE | 2022-02-05 07:17 | XRay Report ---
XR chest 1V portable CLINICAL HISTORY: Follow-up. COMPARISON STUDY: Chest radiograph February 04, 2022. FINDINGS: The endotracheal and nasogastric tubes have been removed. Cardiomegaly is noted. Perihilar and bibasilar opacities have increased. There is a small left pleural effusion. No pneumothorax is pr esent. Pulmonary vascular congestion has developed. IMPRESSION: 1. Progression of perihilar and bibasilar opacities including dense left basilar consolidation. This could reflect pneumonia or atelectasis. Radiographic follow up to ensure resolution is recommended. 2. Interval development of pulmonary vascular congestion with possible mild pulmonary edema. 3. Cardiomegaly. 4. Small left pleural effusion. ACT 112: Negative or not required by law. Electronically signed by: Johnnie Oshea M.D. 02/05/2022 7:16 AM
[2022-02-05] MEDS: POTASSIUM CHLORIDE / WTR 10 MEQ/100 ML PLCT IV SCH ×2 (08:02→09:15)
[2022-02-05] MEDS: ACETAMINOPHEN 1000 MG/100 ML IV IV PRN ×2 (08:12→16:52)
[2022-02-05] MEDS: ENOXAPARIN INJ 40 MG/0.4 ML SYR SQ SCH (08:36)
[2022-02-05] MEDS: ATORVASTATIN 40 MG TAB PO SCH (11:25)
[2022-02-05] MEDS: DOCUSATE SODIUM SYRUP 100 MG/10 ML UDC PO SCH ×2 (11:25→20:18)
[2022-02-05] MEDS: ASPIRIN 81 MG ECTAB PO SCH (11:25)
[2022-02-05] MEDS: TICAGRELOR 90 MG TAB PO SCH ×2 (11:25→20:18)
--- NOTE | 2022-02-05 12:17 | Cardiology Progress Note ---
Date of Service February 05, 2022 Assessment & Plan (1) Cardiac arrest: Plan: 2. Acute posterior UT 3. ROBIN to the proximal LCx. 4. Re warmed and successfully extubated. 5. Ischemic cardiomyopathy -LVEF of 45-50% with an inferolateral wall motion abnormality. 6. Anoxic encephalopathy-improving, but still requires 1:1 supervision. 7. Convert IV metoprolol to p.o. dosing. 8. Continue Brilinta, aspirin, and atorvastatin. 9. Start ACEI or ARB when blood pressure allows. 10. Ok to transfer to telemetry. Appreciate ICU and hospital medicine care. Admission and Anticipated Discharge Date Admission Date: February 02, 2022 Subjective The patient is resting comfortably in bed without complaints of chest pain or dyspnea. Physical Exam Physical Exam: In general this is a well-developed well-nourished white male in no acute distress. HEENT exam is negative. Neck is supple with full carotid upstrokes. There are no carotid bruits. Jugular venous pressure is flat at 90. There is no thyromegaly. Cardiovascular exam reveals a regular rhythm with a normal S1 and S2. Heart sounds are distant. No obvious murmurs. Lungs are clear without rales, rhonchi, or wheezes. Abdomen is soft and nontender without bruits. Extremities reveal intact radial artery and posterior tibial pulses bilaterally. There is no peripheral edema. Results & Data ([facility]) Vital Signs (Past 12 Hours) Vital Signs Temp Pulse Resp BP Pulse Ox Pulse Ox 02/05/22 09:01 87 20 118/61 94 02/05/22 08:00 36.9 C 87 20 137/73 91 95 02/05/22 07:00 82 20 130/73 92 02/05/22 06:00 90 25 H 120/75 93 02/05/22 05:30 88 27 H 125/64 93 02/05/22 05:19 77 116/68 02/05/22 05:00 87 15 116/68 93 02/05/22 04:30 36.8 C 80 16 105/46 L 90 02/05/22 04:00 89 22 115/63 89 L 02/05/22 03:02 78 19 92 02/05/22 03:01 137/76 02/05/22 02:59 94 H 27 H 88 L 02/05/22 02:30 85 20 122/59 L 90 02/05/22 02:00 79 19 102/69 87 L 02/05/22 01:30 76 14 83/53 L 94 02/05/22 01:00 83 14 120/63 91 02/05/22 00:30 80 13 118/60 93 Diagnostic Findings monitoring engineer notes normal sinus rhythm with occasional PAC. No ventricular tachycardia. PG Care Time/CCT Total # of Minutes Spent Total Time Spent with Patient: Total time spent is greater than 50% in coordination of care (as documented) at patient's floor/unit and/or counseling patient: Coding Level of Care Code 71247 Subseq Hosp Care Lvl 3 Diagnoses Cardiac arrest I46.9
[2022-02-05] MEDS ORDERED: Nursing to Pharmacy Communication SCH (13:00)
[2022-02-05] MEDS: METOPROLOL TARTRATE 25 MG TAB PO SCH (13:37)
[2022-02-05] MEDS ORDERED: ZOLPIDEM TARTRATE 5 MG TAB PO PRN (15:28)
[2022-02-05] MEDS ORDERED: DEXTROMETHORPHAN POLYMR COMPLX 30 MG/5 ML UDP PO PRN (16:41)
[2022-02-05] MEDS ORDERED: LORazepam 1 MG TAB PO PRN (16:42)
--- NOTE | 2022-02-05 17:21 | Hospitalist Progress Note ---
Date of Service February 05, 2022 Assessment & Plan (1) Cardiac arrest: Plan: Cardiac Arrest Posterior STEMI S/P PCI (ROBIN to proximal circumflex) Cardiogenic shock Ischemic cardiomyopathy Coronary artery disease Prolonged QTC --ECHO: Normal LV size, borderline concentric LVH, EF 45 to 50%, akinetic inferolateral wall. Moderately hypokinetic basal to mid lateral wall. No significant valvular pathology. Normal RV size and function. Pressors weaned off Completed therapeutic hypothermia protocol Appreciate diving supervisor, cardiology input Continue aspirin, Brilinta, statin, Metoprolol Monitor I's and O's, daily weight IV Lasix as needed Monitor volume status Check lipid panel Acute Respiratory failure secondary to cardiac arrest S/P Intubation Vent support as per ICU team EEG suggestive of anoxic encephalopathy Reorient frequently Chest x-ray suggestive of pulmonary vascular congestion Normal procalcitonin IV Lasix as needed Acute kidney injury Hypokalemia Replace electrolytes as needed Received gentle IV fluids Monitor renal function Avoid nephrotoxic agents as able Cr back to baseline Alcohol use disorder Tobacco use disorder Counseled to quit drinking, smoking Started on thiamine, folic acid At risk CIWA protocol Hyperglycemia HbA1c 5.5 Ongoing tobacco abuse Counseled to quit as able DVT Px: Lovenox SQ Code Status Full code Admission and Anticipated Discharge Date Admission Date: February 02, 2022 Subjective Patient is seen and examined at bedside States having cough associated with chest discomfort when coughing Also states having restlessness Poor sleep overnight Discussed with patient's family at bedside Offers no other complaints Review of Systems Review of Systems: All systems reviewed & are unremarkable except as noted in Subjective Physical Exam Physical Exam: Physical Exam: Vitals signs as noted above General Appearance:Moderately built and nourished, no apparent distress Head: normocephalic, Atraumatic Eyes: normal inspection Neck: supple, Trachea midline Respiratory/Chest: Normal breath sounds, CTA Cardiovascular: S1, S2, No murmur Abdomen/GI:Soft, Non tender, Bowel sounds present Extremities/Musculoskeletal:normal inspection, no edema Neurologic/Psych: Alert, awake, oriented to person, grossly no focal deficits Skin: normal color, warm Results & Data Results & Data ([facility]) Vital Signs (Past 12 Hours) Vital Signs Temp Pulse Resp BP Pulse Ox Pulse Ox 02/05/22 12:00 36.9 C 91 H 23 120/64 93 02/05/22 09:01 87 20 118/61 94 02/05/22 08:00 36.9 C 87 20 137/73 91 95 02/05/22 07:00 82 20 130/73 92 02/05/22 06:00 90 25 H 120/75 93 02/05/22 05:30 88 27 H 125/64 93 02/05/22 05:19 77 116/68 Laboratory Results Short CBC 02/04/22 02/05/22 02/05/22 Range/Units 19:04 00:40 05:54 WBC 11.67 H 10.51 10.37 (4.8-10.8) K/uL Hgb 12.3 L 11.7 L 12.5 L (14.0-18.0) g/dL Hct 35.4 L 33.7 L 35.7 L (42-52) % Plt Count 163 155 169 (130-400) K/uL BMP 02/04/22 02/05/22 02/05/22 19:04 00:40 05:54 Sodium 140 137 137 Potassium 4.1 3.7 3.8 Chloride 102 102 102 Carbon Dioxide 29 30 27 BUN 13 14 15 Creatinine 1.07 1.03 0.90 Glucose 97 98 107 H Calcium 7.8 L 7.7 L 8.1 L
[2022-02-05] MEDS: THIAMINE HCL 100 MG TAB PO SCH (18:25)
[2022-02-05] MEDS: FOLIC ACID 1 MG TAB PO SCH (18:25)
[2022-02-05] MEDS ORDERED: ALBUTEROL 0.083% NEBU SOLN 3 ML VIAL NEB PRN (18:31)
[2022-02-05] MEDS ORDERED: FUROSEMIDE INJ 20 MG/2 ML VIAL IV ONE ×2 (18:45→22:51)
[2022-02-05] MEDS ORDERED: ALBUT/IPRATROP 3MG/0.5MG NEB 3 ML VIAL NEB STA (22:49)
[2022-02-05] MEDS ORDERED: methylPREDNISolone 20 MG in SYRINGE 0 ML IV STA (22:52)
[2022-02-05] MEDS ORDERED: OLANZapine 10 MG/2.1 ML SDV IM STA (22:52)
[2022-02-05] MEDS ORDERED: OLANZapine 10 MG/2.1 ML SDV IM ONE (22:58)
[2022-02-05] MEDS ORDERED: PIPERACILLIN/TAZOBACTAM 4.5 GM in DEXTROSE 5% 100 ML IV ONE (23:01)
[2022-02-05] MEDS ORDERED: PIPERACILL/TAZOBAC CONSULT ACTIVE PRN (23:01)
--- NOTE | 2022-02-05 23:03 | Communication Note ---
Date of Service: February 05, 2022 Notified by RN of worsening respiratory distress and agitation. O2 sats 70s as per RN. Patient agitated. Junky cough symptoms noted Chest x-ray as per my interpretation bilateral congestion/infiltrates AP Worsening respiratory failure Multifactorial: Pulmonary congestion HAP, possible aspiration pneumonia Supplemental O2 BiPAP for now Baseline ABG Additional Lasix Solu-Medrol, neb treatment 1 dose Zosyn Aspiration precautions
[2022-02-05 23:25] LABS: Base Excess ABG 2.9 mEq/L (-9-1.8); HCO3 ABG 27 mmol/L (19-24); Oxygen Saturation ABG 99.2 % (90-95); PCO2 ABG 41 mmHg (35-46); PO2 ABG 158 mmHg (80-95); pH ABG 7.44 (7.35-7.45)
[2022-02-05 23:37] LABS: Allen Test Pos (Pos)
[2022-02-05] MEDS ORDERED: LORazepam 2 MG/1 ML VIAL IV PRN (23:49)
[2022-02-06] MEDS: PIPERACILLIN/TAZOBACTAM 3.375 GM in DEXTROSE 5% 100 ML IV SCH ×3 (03:53→21:18)
[2022-02-06] MEDS ORDERED: LORazepam 2 MG/1 ML VIAL IV PRN (04:45)
[2022-02-06] MEDS ORDERED: XOPENEX/ATROVENT 1.25mg/0.5MG NEB COMBO NEB STA (05:05)
[2022-02-06] MEDS ORDERED: MELATONIN 3 MG TAB PO PRN (05:06)
[2022-02-06] MEDS ORDERED: IPRATROPIUM BROMIDE NEB SOLN 0.02% 2.5 ML VIAL INH STA (05:12)
[2022-02-06] MEDS ORDERED: LEVALBUTEROL 1.25MG/0.5ML NEB INH STA (05:12)
[2022-02-06 06:52] LABS: Hematocrit (blood only) 35.7 % (42-52); Hemoglobin 12.4 g/dL (14.0-18.0); Mean Corpuscular Hemoglobin 32.4 pg (25-34); Mean Corpuscular Hgb Conc 34.7 g/dL (32-36); Mean Corpuscular Volume 93.2 fL (80-100); Mean Platelet Volume 10.6 fL (7.4-10.4); Platelet Count 197 K/uL (130-400); RDW Standard Deviation 47.3 fL (36.4-46.3); Red Blood Count 3.83 M/uL (4.7-6.1); White Blood Count 10.88 K/uL (4.8-10.8)
[2022-02-06 07:10] LABS: BUN Creatinine Ratio 17.5 (10-20); Calcium 8.4 mg/dl (8.5-10.1); Chol HDL Ratio 2.4 (0-5); Creatinine Clr Calc Pharmacy 70.2 ml/min; Est GFR (African American) 89.4 ml/min; Est GFR (Non-African American) 77.1 ml/min; Potassium 3.9 mmol/L (3.5-5.1)
--- NOTE | 2022-02-06 08:20 | XRay Report ---
XR chest 1V portable CLINICAL HISTORY: low o2. Follow-up bilateral alveolar opacities COMPARISON STUDY: 02/05/2022 TECHNIQUE: 1 view of the chest FINDINGS: Single frontal view of the chest demonstrates the cardiomediastinal silhouette to be within normal li mits. Compared to previous examination, diffuse interstitial and alveolar edema are again seen. Addit ionally, bilateral lower lobe alveolar opacities are identified. These are unchanged. There is again evidence for left pleural effusion. There is no acute osseous pathology. IMPRESSION: 1. Worsening diffuse interstitial and alveolar edema. 2. Bilateral lower lobe alveolar opacities are again seen. 3. Small left pleural effusion is again seen. ACT 112: Negative or not required by law. Electronically signed by: Jamil Atkinson M.D. 02/06/2022 8:18 AM
[2022-02-06] MEDS: ENOXAPARIN INJ 40 MG/0.4 ML SYR SQ SCH (09:26)
[2022-02-06] MEDS: DOCUSATE SODIUM SYRUP 100 MG/10 ML UDC PO SCH ×2 (09:27→21:22)
[2022-02-06] MEDS ORDERED: FUROSEMIDE 40 MG/4 ML VIAL IV ONE (10:07)
[2022-02-06] MEDS: METOPROLOL TARTRATE 25 MG TAB PO SCH ×2 (10:58→21:23)
[2022-02-06] MEDS: TICAGRELOR 90 MG TAB PO SCH ×2 (10:58→21:47)
[2022-02-06] MEDS: ASPIRIN 81 MG ECTAB PO SCH (12:54)
[2022-02-06] MEDS: THIAMINE HCL 100 MG TAB PO SCH (12:56)
[2022-02-06] MEDS: FOLIC ACID 1 MG TAB PO SCH (12:56)
[2022-02-06] MEDS: ATORVASTATIN 40 MG TAB PO SCH (12:56)
--- NOTE | 2022-02-06 14:20 | Cardiology Progress Note ---
Date of Service February 06, 2022 Assessment & Plan (1) Cardiac arrest: Plan: 2. Acute posterior MT 3. ROBIN to the proximal LCx. 4. Ischemic cardiomyopathy -LVEF of 45-50% with an inferolateral wall motion abnormality. 6. Anoxic encephalopathy-improving, but still requires 1:1 supervision. 7. Continue metoprolol. 8. Continue Brilinta, aspirin, and atorvastatin. 9. Start ACEI or ARB when blood pressure allows. 10. Consider limited echocardiogram prior to discharge. Appreciate hospital medicine care. Admission and Anticipated Discharge Date Admission Date: February 02, 2022 Subjective The patient is very sedate this morning. Does awaken to questions. Denies chest pain and dyspnea. Physical Exam Physical Exam: In general this is a well-developed well-nourished white male in no acute distress. HEENT exam is negative. Neck is supple with full carotid upstrokes. There are no carotid bruits. Jugular venous pressure is flat at 90. There is no thyromegaly. Cardiovascular exam reveals a regular rhythm with a normal S1 and S2. Heart sounds are distant. No obvious murmurs. Lungs are clear without rales, rhonchi, or wheezes. Abdomen is soft and nontender without bruits. Extremities reveal intact radial artery and posterior tibial pulses bilaterally. There is no peripheral edema. Results & Data ([facility]) Vital Signs (Past 12 Hours) Vital Signs Temp Pulse Pulse Pulse Resp BP BP 02/06/22 11:38 37 C 140/76 02/06/22 11:00 81 15 02/06/22 07:19 36.6 C 82 21 132/74 02/06/22 06:37 36.6 C 85 25 H 154/79 H 02/06/22 05:44 36.7 C 89 27 H 135/84 02/06/22 05:20 72 25 H 02/06/22 04:36 36.5 C 88 22 153/80 H 02/06/22 03:59 74 22 02/06/22 03:24 36.7 C 86 21 147/82 H Pulse Ox 02/06/22 11:38 02/06/22 11:00 96 02/06/22 07:19 94 02/06/22 06:37 96 02/06/22 05:44 96 02/06/22 05:20 94 02/06/22 04:36 94 02/06/22 03:59 94 02/06/22 03:24 97 Diagnostic Findings bun icer notes sinus rhythm an occasional PAC. PG Care Time/CCT Total # of Minutes Spent Total Time Spent with Patient: Total time spent is greater than 50% in coordination of care (as documented) at patient's floor/unit and/or counseling patient: Coding Level of Care Code 76895 Subseq Hosp Care Lvl 3 Diagnoses Cardiac arrest I46.9
[2022-02-06] MEDS: NICOTINE 21 MG/24 HR TDSY TD SCH (18:08)
--- NOTE | 2022-02-06 21:04 | Hospitalist Progress Note ---
Date of Service February 06, 2022 Assessment & Plan (1) Cardiac arrest: Plan: Cardiac Arrest Posterior STEMI S/P PCI (ROBIN to proximal circumflex) Cardiogenic shock Ischemic cardiomyopathy Coronary artery disease Prolonged QTC --ECHO: Normal LV size, borderline concentric LVH, EF 45 to 50%, akinetic inferolateral wall. Moderately hypokinetic basal to mid lateral wall. No significant valvular pathology. Normal RV size and function. Pressors weaned off Lipid Panel: Normal Completed therapeutic hypothermia protocol Appreciate ballistics expert, cardiology input Continue aspirin, Brilinta, statin, Metoprolol Monitor I's and O's, daily weight IV Lasix as needed Monitor volume status Received IV Lasix today Acute Respiratory failure secondary to cardiac arrest S/P Intubation Vent support as per ICU team EEG suggestive of anoxic encephalopathy Reorient frequently Chest x-ray suggestive of pulmonary vascular congestion Normal procalcitonin IV Lasix as needed Avoid benzos as able Dysphagia N.p.o. for now Speech therapy evaluation daily Acute metabolic encephalopathy EEG suggestive of anoxic encephalopathy Consider neurology evaluation if needed Reorient frequently Acute kidney injury Hypokalemia Replace electrolytes as needed Received gentle IV fluids Monitor renal function Avoid nephrotoxic agents as able Cr back to baseline Alcohol use disorder Tobacco use disorder Counseled to quit drinking, smoking Started on thiamine, folic acid At risk CIWA protocol Nicotine patch Hyperglycemia HbA1c 5.5 Ongoing tobacco abuse Counseled to quit as able DVT Px: Lovenox SQ Code Status Full code Admission and Anticipated Discharge Date Admission Date: February 02, 2022 Subjective Patient is seen and examined at bedside Drowsy during my encounter Had Ativan earlier today Discussed with patient's family at bedside Poorly slept overnight Evaluated by speech today who recommended n.p.o. On 8 L supplemental oxygen Review of Systems Review of Systems: All systems reviewed & are unremarkable except as noted in Subjective Physical Exam Physical Exam: Physical Exam: Vitals signs as noted above General Appearance:Moderately built and nourished, no apparent distress Head: normocephalic, Atraumatic Eyes: normal inspection Neck: supple, Trachea midline Respiratory/Chest: Normal breath sounds, Basal crackles Cardiovascular: S1, S2, No murmur Abdomen/GI:Soft, Non tender, Bowel sounds present Extremities/Musculoskeletal:normal inspection, no edema Neurologic/Psych: Alert, awake, oriented to person, grossly no focal deficits Skin: normal color, warm Results & Data Results & Data ([facility]) Vital Signs (Past 12 Hours) Vital Signs Temp Pulse Pulse Resp BP BP Pulse Ox 02/06/22 20:14 37.1 C 87 16 161/82 H 02/06/22 16:00 86 02/06/22 15:00 37.1 C 94 H 19 128/78 96 02/06/22 11:38 37 C 140/76 02/06/22 11:00 81 15 96 Laboratory Results Short CBC 02/06/22 Range/Units 06:30 WBC 10.88 H (4.8-10.8) K/uL Hgb 12.4 L (14.0-18.0) g/dL Hct 35.7 L (42-52) % Plt Count 197 (130-400) K/uL BMP 02/06/22 06:30 Sodium 136 Potassium 3.9 Chloride 99 Carbon Dioxide 32 BUN 17 Creatinine 0.97 Glucose 114 H Calcium 8.4 L
[2022-02-07] MEDS: PIPERACILLIN/TAZOBACTAM 3.375 GM in DEXTROSE 5% 100 ML IV SCH ×2 (04:46→12:34)
[2022-02-07 07:07] LABS: Hematocrit (blood only) 37.1 % (42-52); Hemoglobin 13.1 g/dL (14.0-18.0); Mean Corpuscular Hemoglobin 32.8 pg (25-34); Mean Corpuscular Hgb Conc 35.3 g/dL (32-36); Mean Platelet Volume 9.8 fL (7.4-10.4); Platelet Count 254 K/uL (130-400); RDW Coefficient of Variation 13.7 % (11.5-14.5); RDW Standard Deviation 46.6 fL (36.4-46.3); Red Blood Count 3.99 M/uL (4.7-6.1)
[2022-02-07 07:36] LABS: Calcium 8.9 mg/dl (8.5-10.1); Creatinine Clr Calc Pharmacy 68.9 ml/min; Est GFR (African American) 90.5 ml/min; Est GFR (Non-African American) 78.1 ml/min; Magnesium 2.3 mg/dl (1.7-2.4); Potassium 3.7 mmol/L (3.5-5.1)
[2022-02-07] MEDS: ASPIRIN 81 MG ECTAB PO SCH (09:26)
[2022-02-07] MEDS: METOPROLOL TARTRATE 25 MG TAB PO SCH ×3 (09:26→22:19)
[2022-02-07] MEDS: THIAMINE HCL 100 MG TAB PO SCH (09:26)
[2022-02-07] MEDS: ATORVASTATIN 40 MG TAB PO SCH (09:27)
[2022-02-07] MEDS: ENOXAPARIN INJ 40 MG/0.4 ML SYR SQ SCH (09:27)
[2022-02-07] MEDS: FOLIC ACID 1 MG TAB PO SCH (09:27)
[2022-02-07] MEDS: NICOTINE 21 MG/24 HR TDSY TD SCH (09:28)
[2022-02-07 09:54] LABS: Base Excess VBG 8.3 mEq/L; HCO3 VBG 34 mmol/L; PCO2 VBG 49 mmHg (38-50); PO2 VBG 17 mmHg; pH VBG 7.46 (7.36-7.41)
[2022-02-07 10:09] LABS: Oxygen Saturation VBG < 60.0 %
[2022-02-07] MEDS: TICAGRELOR 90 MG TAB PO SCH ×2 (10:47→22:14)
[2022-02-07] MEDS: DOCUSATE SODIUM SYRUP 100 MG/10 ML UDC PO SCH ×3 (10:47→22:19)
--- NOTE | 2022-02-07 15:19 | Communication Note ---
Date of Service: February 07, 2022 Neurology has been asked to evaluate Mr. 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 He had a cardiac arrest this past Monday was in cardiogenic shock required ventilatory support underwent cardiac catheterization extensive evaluation by intensive care unit personnel and cardiology and is now emerged from all of this with a slightly agitated confused condition consistent with a post anoxic encephalopathy but without any major motor deficits, no abnormal involuntary movements and improving daily but unfortunately accompanied by some impulsive behavior easy distractibility and irritability An EEG done early in the course of this postarrest interval specifically on 02/03 revealed evidence for a mild burst suppression pattern but there was still evidence for normal background alpha rhythm and is clearly recovered nicely without any abnormal involuntary movements myoclonus etc. CT scan of the head shows no significant structural abnormalities but this was done early There is a history of heavy ethanol use and smoking going to his he has been abstinent from alcohol for least a year Seizures do not include percutaneous coronary angioplasty There are apparently no chronic ongoing home medications or allergies Exam today reveals blood pressure 96/62 pulse 78 respirations are 19 O2 saturations 92% on 3 L nasal cannula Is a large framed individual who is somewhat irritable and I really did not press for a very thorough examination but he was alert knew the year did not know the month did not know the season knew he was in [place] and then became a little more irritable at my questioning. He was a little argumentative with his earlier. I did not see any abnormal involuntary movements eye movements were intact facial motility and strength appeared to be normal speech was clear although of low volume I did not get him up to walk but according to his he was ambulatory in the martin with assistance I did not do a detailed sensory examination. 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 and it is impossible to predict how much behavioral changes will emerge and how long they will be present but I think once she is stable medically he needs to be transferred back to his home base in [place] and his care provided there by his primary care physician, cardiology, and perhaps psychiatry I would be reluctant to recommend any major tranquilizers at this point illicit becomes clear that his behavior is going to require this You might want to consider a psychiatry evaluation if agitation and impulsive behavior becomes problematical while here Otherwise neurology has no more suggestions and is going to sign off the case Be Pinto MD The above note was generated utilizing voice recognition technology and may have spelling errors punctuation errors pronoun usage errors and syntax errors
[2022-02-07] MEDS ORDERED: SODIUM CHLORIDE 0.9% 500 ML IV ONE (15:39)
--- NOTE | 2022-02-07 17:44 | Hospitalist Progress Note ---
Date of Service February 07, 2022 Assessment & Plan (1) Cardiac arrest: Plan: Cardiac Arrest Posterior STEMI S/P PCI (ROBIN to proximal circumflex) Cardiogenic shock Ischemic cardiomyopathy Coronary artery disease Prolonged QTC --ECHO: Normal LV size, borderline concentric LVH, EF 45 to 50%, akinetic inferolateral wall. Moderately hypokinetic basal to mid lateral wall. No significant valvular pathology. Normal RV size and function. Pressors weaned off Lipid Panel: Normal Completed therapeutic hypothermia protocol Appreciate assembler utility buildings, cardiology input Continue aspirin, Brilinta, statin, Metoprolol Monitor I's and O's, daily weight IV Lasix as needed Monitor volume status Acute Respiratory failure secondary to cardiac arrest S/P Intubation Vent support as per ICU team EEG suggestive of anoxic encephalopathy Reorient frequently Chest x-ray suggestive of pulmonary vascular congestion Normal procalcitonin IV Lasix as needed Avoid benzos as able Decreased oxygen requirement Dysphagia Speech therapy evaluation Tolerating diet Aspiration precautions Acute metabolic encephalopathy Likely due to anoxia EEG suggestive of anoxic encephalopathy Appreciate Neurology Input Reorient frequently Acute kidney injury Hypokalemia Replace electrolytes as needed Received gentle IV fluids Monitor renal function Avoid nephrotoxic agents as able Cr back to baseline Alcohol use disorder Tobacco use disorder Counseled to quit drinking, smoking Started on thiamine, folic acid At risk CIWA protocol Nicotine patch Hyperglycemia HbA1c 5.5 Ongoing tobacco abuse Counseled to quit as able DVT Px: Lovenox SQ Code Status Full code Admission and Anticipated Discharge Date Admission Date: February 02, 2022 Subjective Patient is seen and examined at bedside More alert, awake today Oriented to person Tolerating diet today Decreased oxygen requirement Discussed with patient's family over the phone Review of Systems Review of Systems: All systems reviewed & are unremarkable except as noted in Subjective Physical Exam Physical Exam: Physical Exam: Vitals signs as noted above General Appearance:Moderately built and nourished, no apparent distress Head: normocephalic, Atraumatic Eyes: normal inspection Neck: supple, Trachea midline Respiratory/Chest: Normal breath sounds, Basal crackles Cardiovascular: S1, S2, No murmur Abdomen/GI:Soft, Non tender, Bowel sounds present Extremities/Musculoskeletal:normal inspection, no edema Neurologic/Psych: Alert, awake, oriented to person, grossly no focal deficits Skin: normal color, warm Results & Data Results & Data ([facility]) Vital Signs (Past 12 Hours) Vital Signs Temp Pulse Pulse Resp BP BP Pulse Ox 02/07/22 16:06 106/69 02/07/22 15:43 86 02/07/22 15:36 97 02/07/22 15:17 36.4 C L 89 20 89/61 L 95 02/07/22 13:30 36.8 C 78 19 96/62 L 92 02/07/22 11:43 02/07/22 08:00 74 02/07/22 07:05 36.9 C 80 20 129/72 95 Pulse Ox Pulse Ox Pulse Ox 02/07/22 16:06 02/07/22 15:43 02/07/22 15:36 02/07/22 15:17 02/07/22 13:30 02/07/22 11:43 95 96 88 L 02/07/22 08:00 02/07/22 07:05 Laboratory Results Short CBC 02/07/22 Range/Units 06:33 WBC 11.50 H (4.8-10.8) K/uL Hgb 13.1 L (14.0-18.0) g/dL Hct 37.1 L (42-52) % Plt Count 254 (130-400) K/uL BMP 02/07/22 06:33 Sodium 137 Potassium 3.7 Chloride 98 Carbon Dioxide 32 BUN 25 H Creatinine 0.96 Glucose 92 Calcium 8.9
[2022-02-07] MEDS ORDERED: OLANZapine 10 MG/2.1 ML SDV IM ONE (18:29)
[2022-02-07] MEDS: OLANZapine 10 MG/2.1 ML SDV IM ONE ×2 (18:32→18:39)
[2022-02-07] MEDS: AMPICILLIN/SULBACTAM SOD 3,000 MG in 0.9 % SODIUM CHLORIDE 100 ML IV SCH (20:20)
[2022-02-07] MEDS: OLANZapine 10 MG/2.1 ML SDV IM PRN (23:14)
[2022-02-08] MEDS: AMPICILLIN/SULBACTAM SOD 3,000 MG in 0.9 % SODIUM CHLORIDE 100 ML IV SCH ×5 (02:48→20:29)
[2022-02-08] MEDS ORDERED: OLANZapine 10 MG/2.1 ML SDV IM STA ×2 (04:06)
[2022-02-08] MEDS: OLANZapine 10 MG/2.1 ML SDV IM PRN (04:08)
[2022-02-08] MEDS ORDERED: OLANZapine 10 MG/2.1 ML SDV IM PRN (05:02)
[2022-02-08 06:44] LABS: Hematocrit (blood only) 35.6 % (42-52); Hemoglobin 12.9 g/dL (14.0-18.0); Mean Corpuscular Hemoglobin 33.5 pg (25-34); Mean Corpuscular Hgb Conc 36.2 g/dL (32-36); Mean Corpuscular Volume 92.5 fL (80-100); Mean Platelet Volume 9.8 fL (7.4-10.4); Platelet Count 261 K/uL (130-400); RDW Coefficient of Variation 13.9 % (11.5-14.5); RDW Standard Deviation 46.6 fL (36.4-46.3); Red Blood Count 3.85 M/uL (4.7-6.1); White Blood Count 9.83 K/uL (4.8-10.8)
[2022-02-08 07:03] LABS: BUN Creatinine Ratio 28.7 (10-20); Calcium 8.6 mg/dl (8.5-10.1); Creatinine Clr Calc Pharmacy 74.8 ml/min; Est GFR (African American) 99.2 ml/min; Est GFR (Non-African American) 85.6 ml/min; Potassium 2.9 mmol/L (3.5-5.1)
[2022-02-08] MEDS: METOPROLOL TARTRATE 25 MG TAB PO SCH ×2 (09:31→20:22)
[2022-02-08] MEDS: ATORVASTATIN 40 MG TAB PO SCH (09:31)
[2022-02-08] MEDS: TICAGRELOR 90 MG TAB PO SCH ×2 (09:31→20:30)
[2022-02-08] MEDS: FOLIC ACID 1 MG TAB PO SCH (09:31)
[2022-02-08] MEDS: ASPIRIN 81 MG ECTAB PO SCH (09:31)
[2022-02-08] MEDS: ENOXAPARIN INJ 40 MG/0.4 ML SYR SQ SCH (09:32)
[2022-02-08] MEDS: NICOTINE 21 MG/24 HR TDSY TD SCH (09:32)
[2022-02-08] MEDS: THIAMINE HCL 100 MG TAB PO SCH (09:33)
[2022-02-08] MEDS: DOCUSATE SODIUM SYRUP 100 MG/10 ML UDC PO SCH ×2 (10:02→20:21)
[2022-02-08] MEDS ORDERED: POTASSIUM CHLORIDE CRTAB 20 MEQ TABCR PO ONE ×2 (10:15→19:00)
[2022-02-08] MEDS: POTASSIUM CHLORIDE / WTR 10 MEQ/100 ML PLCT IV SCH ×2 (11:16→12:16)
--- NOTE | 2022-02-08 14:27 | Cardiology Progress Note ---
Date of Service February 08, 2022 Assessment & Plan (1) Cardiac arrest: Plan: 2. Posterior Acute MIpost PCI with ROBIN to proximal circumflex 3. Ischemic cardiomyopathyEF 45 to 50%, lateral/inferolateral wall motion abnormality 4. Moderate residual on culprit coronary artery % proximal to mid LAD, 50% mid RCA 5. Anoxic encephalopathy 6. Tobacco abuse No significant congestion on exam today Borderline low blood pressures yesterday Electrically stable continue DAPT with ASA/ticagrelor -- Continue metoprolol 12.5 mg twice daily -- Start low-dose lisinopril 2.5 mg daily Continue statin Admission and Anticipated Discharge Date Admission Date: February 02, 2022 Subjective Patient combative overnight, struck staff, required restraints and additional antipsychotics. Today patient seen restraints off. Comfortable. Answers questions appropriately. Reports some mild constant chest pain, worse with movement which he associates with CPR Review of Systems Review of Systems: All systems reviewed & are unremarkable except as noted in HPI & below Physical Exam Physical Exam: General: Awake, alert HEENT: Sclerae anicteric Lungs: Few scattered wheezes. No crackles Cardiac: Regular, no murmurs no JVD Vascular: 2+ right radial. Abdomen: Soft, few bowel sounds Extremities: lower extremities warm, No edema Results & Data ([facility]) Vital Signs (Past 12 Hours) Vital Signs Temp Pulse Pulse Pulse Resp BP Pulse Ox 02/08/22 11:37 97.9 F 80 21 115/69 97 02/08/22 08:00 95 H 02/08/22 07:13 98.1 F 99 H 18 138/74 99 02/08/22 04:00 99.3 F 101 H 16 118/77 97 PG Care Time/CCT Total # of Minutes Spent Total Time Spent with Patient: Total time spent is greater than 50% in coordination of care (as documented) at patient's floor/unit and/or counseling patient: Coding Level of Care Code 32594 Subseq Hosp Care Lvl 3 Diagnoses Cardiac arrest I46.9
[2022-02-08] MEDS: lisinopril 2.5 MG TAB PO SCH (15:40)
--- NOTE | 2022-02-08 16:25 | Hospitalist Progress Note ---
Date of Service February 08, 2022 Assessment & Plan (1) Cardiac arrest: Plan: Cardiac Arrest Posterior STEMI S/P PCI (ROBIN to proximal circumflex) Cardiogenic shock Ischemic cardiomyopathy Coronary artery disease Prolonged QTC --ECHO: Normal LV size, borderline concentric LVH, EF 45 to 50%, akinetic inferolateral wall. Moderately hypokinetic basal to mid lateral wall. No significant valvular pathology. Normal RV size and function. Pressors weaned off Lipid Panel: Normal Completed therapeutic hypothermia protocol Appreciate computer programmer, cardiology input Continue aspirin, Brilinta, statin, Metoprolol Monitor I's and O's, daily weight IV Lasix as needed Monitor volume status Started on lisinopril Needs follow-up with cardiology upon discharge Acute Respiratory failure secondary to cardiac arrest S/P Intubation Vent support as per ICU team EEG suggestive of anoxic encephalopathy Reorient frequently Chest x-ray suggestive of pulmonary vascular congestion Normal procalcitonin IV Lasix as needed Avoid benzos as able Hypoxia resolved Saturating well on room air Dysphagia Speech therapy evaluation Tolerating diet Aspiration precautions Acute metabolic encephalopathy Likely due to anoxia, delirium EEG suggestive of anoxic encephalopathy Appreciate Neurology Input Reorient frequently Zyprexa as needed Acute kidney injury Hypokalemia Replace electrolytes as needed Received gentle IV fluids Monitor renal function Avoid nephrotoxic agents as able Cr back to baseline Alcohol use disorder Tobacco use disorder Counseled to quit drinking, smoking Started on thiamine, folic acid At risk [facility] protocol Nicotine patch COVID 19 Exposure Patient's Sister visited the patient yesterday who was tested positive today Re-test for COVID--pending Hyperglycemia HbA1c 5.5 Ongoing tobacco abuse Counseled to quit as able DVT Px: Lovenox SQ Code Status Full code Admission and Anticipated Discharge Date Admission Date: February 02, 2022 Subjective Patient is seen and examined at bedside Agitated and combative overnight More cooperative alert and oriented this morning Offers no complaints this morning Saturating well on room air Sitter at bedside Review of Systems Review of Systems: All systems reviewed & are unremarkable except as noted in Subjective Physical Exam Physical Exam: Physical Exam: Vitals signs as noted above General Appearance:Moderately built and nourished, no apparent distress Head: normocephalic, Atraumatic Eyes: normal inspection Neck: supple, Trachea midline Respiratory/Chest: Normal breath sounds, CTA Cardiovascular: S1, S2, No murmur Abdomen/GI:Soft, Non tender, Bowel sounds present Extremities/Musculoskeletal:normal inspection, no edema Neurologic/Psych: Alert, awake, oriented to person, grossly no focal deficits Skin: normal color, warm Results & Data Results & Data ([facility]) Vital Signs (Past 12 Hours) Vital Signs Temp Pulse Pulse Pulse Resp BP Pulse Ox 02/08/22 15:19 36.5 C 84 18 119/71 94 02/08/22 11:37 36.6 C 80 21 115/69 97 02/08/22 08:00 95 H 02/08/22 07:13 36.7 C 99 H 18 138/74 99 Laboratory Results Short CBC 02/08/22 Range/Units 06:05 WBC 9.83 (4.8-10.8) K/uL Hgb 12.9 L (14.0-18.0) g/dL Hct 35.6 L (42-52) % Plt Count 261 (130-400) K/uL BMP 02/08/22 06:05 Sodium 137 Potassium 2.9 L D Chloride 100 Carbon Dioxide 29 BUN 25 H Creatinine 0.87 Glucose 86 Calcium 8.6
[2022-02-08] MEDS ORDERED: Nursing to Pharmacy Communication SCH (18:15)
[2022-02-09] MEDS: AMPICILLIN/SULBACTAM SOD 3,000 MG in 0.9 % SODIUM CHLORIDE 100 ML IV SCH ×4 (03:43→20:15)
[2022-02-09 06:25] LABS: Hematocrit (blood only) 35.2 % (42-52); Hemoglobin 12.5 g/dL (14.0-18.0); Mean Corpuscular Hemoglobin 33.1 pg (25-34); Mean Corpuscular Hgb Conc 35.5 g/dL (32-36); Mean Corpuscular Volume 93.1 fL (80-100); Mean Platelet Volume 9.5 fL (7.4-10.4); Platelet Count 287 K/uL (130-400); RDW Coefficient of Variation 13.9 % (11.5-14.5); RDW Standard Deviation 47.3 fL (36.4-46.3); Red Blood Count 3.78 M/uL (4.7-6.1); White Blood Count 10.21 K/uL (4.8-10.8)
[2022-02-09 07:50] LABS: BUN Creatinine Ratio 24.1 (10-20); Calcium 8.3 mg/dl (8.5-10.1); Creatinine Clr Calc Pharmacy 77.7 ml/min; Est GFR (African American) 101.2 ml/min; Est GFR (Non-African American) 87.3 ml/min; Magnesium 2.4 mg/dl (1.7-2.4); Potassium 3.7 mmol/L (3.5-5.1)
[2022-02-09] MEDS: ASPIRIN 81 MG ECTAB PO SCH (08:33)
[2022-02-09] MEDS: ATORVASTATIN 40 MG TAB PO SCH (08:33)
[2022-02-09] MEDS: DOCUSATE SODIUM SYRUP 100 MG/10 ML UDC PO SCH ×2 (08:34→20:15)
[2022-02-09] MEDS: ENOXAPARIN INJ 40 MG/0.4 ML SYR SQ SCH (08:34)
[2022-02-09] MEDS: lisinopril 2.5 MG TAB PO SCH (08:35)
[2022-02-09] MEDS: FOLIC ACID 1 MG TAB PO SCH (08:35)
[2022-02-09] MEDS: METOPROLOL TARTRATE 25 MG TAB PO SCH ×2 (08:36→21:13)
[2022-02-09] MEDS: NICOTINE 21 MG/24 HR TDSY TD SCH (08:36)
[2022-02-09] MEDS: THIAMINE HCL 100 MG TAB PO SCH (08:37)
[2022-02-09] MEDS: TICAGRELOR 90 MG TAB PO SCH ×2 (09:56→21:26)
--- NOTE | 2022-02-09 18:01 | Hospitalist Progress Note ---
Date of Service February 09, 2022 Assessment & Plan (1) Cardiac arrest: Plan: per Dr. Chan's notes with addendum: Cardiac Arrest Posterior STEMI S/P PCI (ROBIN to proximal circumflex) Cardiogenic shock Ischemic cardiomyopathy Coronary artery disease Prolonged QTC --ECHO: Normal LV size, borderline concentric LVH, EF 45 to 50%, akinetic inferolateral wall. Moderately hypokinetic basal to mid lateral wall. No significant valvular pathology. Normal RV size and function. Pressors weaned off Lipid Panel: Normal Completed therapeutic hypothermia protocol Appreciate contracts paralegal, cardiology input Continue aspirin, Brilinta, statin, Metoprolol Monitor I's and O's, daily weight IV Lasix as needed Monitor volume status Started on lisinopril Needs follow-up with cardiology upon discharge 02/09 stable overall continue cardiac medications Acute Respiratory failure secondary to cardiac arrest S/P Intubation Vent support as per ICU team EEG suggestive of anoxic encephalopathy Reorient frequently Chest x-ray suggestive of pulmonary vascular congestion Normal procalcitonin IV Lasix as needed Avoid benzos as able Hypoxia resolved Saturating well on room air 02/09 on room air Dysphagia Speech therapy evaluation Tolerating diet Aspiration precautions Acute metabolic encephalopathy Likely due to anoxia, delirium EEG suggestive of anoxic encephalopathy Appreciate Neurology Input Reorient frequently Zyprexa as needed 02/09 less combative oriented x 3 still impulsive and does not follow instructions appropriately as per 1:1 OT recommending inpatient Rehab PT recommending 24 hour care at home Acute kidney injury Hypokalemia Replace electrolytes as needed Received gentle IV fluids Monitor renal function Avoid nephrotoxic agents as able Cr back to baseline 02/09 resolved Alcohol use disorder Tobacco use disorder Counseled to quit drinking, smoking Started on thiamine, folic acid At risk [facility] protocol Nicotine patch 02/09 no signs of overt withdrawal COVID 19 Exposure Patient's Sister visited the patient yesterday who was tested positive today Re-test for COVID--> on Monday, 5 days after exposure after discussed with Infection Control Committee Hyperglycemia HbA1c 5.5 Ongoing tobacco abuse Counseled to quit as able DVT Px: Lovenox SQ Code Status Full code Admission and Anticipated Discharge Date Admission Date: February 02, 2022 Subjective ff up for STEMI, s/p cardiac arrest, etc seen resting in chair, comfortable alert, oriented x 2-3, answers most questions appropriately per 1:1, patient still impulsive when gettingup, ambulating, does not follow commands properly no chest pain, dyspnea, palpitations, dizziness no cough, fever/chills no other symptoms Review of Systems Review of Systems: all noted and negative except for above Physical Exam Physical Exam: General- oriented x 2-3, not in distress, speaks in sentences with no effort or accessory muscle use Eyes- anicteric Neck- no JVD Lungs- clear BS bilaterally, no rales/wheezes Heart- normal rate, regular rhythm; no murmurs Abdomen- normal bowel sounds, nondistended, soft, nontender Extremities- no pretibial edema, no calf tenderness Neuro- alert, oriented x 2-3; no gross focal neurologic deficits Skin- warm & dry Results & Data Results & Data ([facility]) Vital Signs (Past 12 Hours) Vital Signs Temp Pulse Pulse Resp BP Pulse Ox 02/09/22 14:50 36.6 C 81 22 90/55 L 94 02/09/22 11:18 36.9 C 73 18 107/55 L 95 02/09/22 07:15 69 02/09/22 07:01 36.8 C 88 19 136/70 94
[2022-02-10] MEDS: AMPICILLIN/SULBACTAM SOD 3,000 MG in 0.9 % SODIUM CHLORIDE 100 ML IV SCH ×4 (03:53→19:56)
[2022-02-10 07:38] LABS: Creatinine Clr Calc Pharmacy 83.8 ml/min; Est GFR (African American) 103.2 ml/min; Est GFR (Non-African American) 89.1 ml/min
[2022-02-10] MEDS: ENOXAPARIN INJ 40 MG/0.4 ML SYR SQ SCH (08:23)
[2022-02-10] MEDS: lisinopril 2.5 MG TAB PO SCH (08:24)
[2022-02-10] MEDS: METOPROLOL TARTRATE 25 MG TAB PO SCH ×2 (08:24→19:58)
[2022-02-10] MEDS: FOLIC ACID 1 MG TAB PO SCH (08:25)
[2022-02-10] MEDS: THIAMINE HCL 100 MG TAB PO SCH (08:25)
[2022-02-10] MEDS: ATORVASTATIN 40 MG TAB PO SCH (08:25)
[2022-02-10] MEDS: NICOTINE 21 MG/24 HR TDSY TD SCH (08:25)
[2022-02-10] MEDS: DOCUSATE SODIUM SYRUP 100 MG/10 ML UDC PO SCH ×2 (08:26→19:57)
[2022-02-10] MEDS: ASPIRIN 81 MG ECTAB PO SCH (08:26)
[2022-02-10] MEDS: TICAGRELOR 90 MG TAB PO SCH ×2 (08:32→19:59)
--- NOTE | 2022-02-10 16:18 | Hospitalist Progress Note ---
Date of Service February 10, 2022 Assessment & Plan (1) Cardiac arrest: Plan: per Dr. Chan's notes with addendum: Cardiac Arrest Posterior STEMI S/P PCI (ROBIN to proximal circumflex) Cardiogenic shock Ischemic cardiomyopathy Coronary artery disease Prolonged QTC --ECHO: Normal LV size, borderline concentric LVH, EF 45 to 50%, akinetic inferolateral wall. Moderately hypokinetic basal to mid lateral wall. No significant valvular pathology. Normal RV size and function. Pressors weaned off Lipid Panel: Normal Completed therapeutic hypothermia protocol Appreciate english tutor, cardiology input Continue aspirin, Brilinta, statin, Metoprolol Monitor I's and O's, daily weight IV Lasix as needed Monitor volume status Started on lisinopril Needs follow-up with cardiology upon discharge 02/10 stable overall continue cardiac medications Acute Respiratory failure secondary to cardiac arrest S/P Intubation Vent support as per ICU team EEG suggestive of anoxic encephalopathy Reorient frequently Chest x-ray suggestive of pulmonary vascular congestion Normal procalcitonin IV Lasix as needed Avoid benzos as able Hypoxia resolved Saturating well on room air 02/10 Remains on room air No respiratory symptoms Dysphagia Speech therapy evaluation Tolerating diet Aspiration precautions No overt signs of aspiration per building and construction manager metabolic encephalopathy Likely due to anoxia, delirium EEG suggestive of anoxic encephalopathy Appreciate Neurology Input Reorient frequently Zyprexa as needed 02/10 Oriented x3 Calm, cooperative Follows instructions Will request PT and OT reevaluation tomorrow Acute kidney injury Hypokalemia Replace electrolytes as needed Received gentle IV fluids Monitor renal function Avoid nephrotoxic agents as able Cr back to baseline 02/10 resolved Alcohol use disorder Tobacco use disorder Counseled to quit drinking, smoking Started on thiamine, folic acid At risk [facility] protocol Nicotine patch 02/10 no signs of overt withdrawal COVID 19 Exposure Patient's Sister visited the patient yesterday who was tested positive today Re-test for COVID--> on Monday, 5 days after exposure after discussed with Infection Control Committee No overt symptoms of COVID infection at this time Hyperglycemia HbA1c 5.5 Ongoing tobacco abuse Counseled to quit as able DVT Px: Lovenox SQ Code Status Full code Disposition Pending PT/OT reevaluation tomorrow Repeat COVID test on Monday Admission and Anticipated Discharge Date Admission Date: February 02, 2022 Subjective Follow-up for status post cardiac arrest, etc. Next resting in bed, comfortable, in good spirits Oriented x3, answers all questions appropriately States he feels much better overall no chest pain, dyspnea, palpitations, dizziness No cough, fevers or chills, loss of taste or smell, myalgias As per RN patient calm, cooperative, not impulsive anymore Appetite is good No other symptoms Review of Systems Review of Systems: all noted and negative except for above Physical Exam Physical Exam: General- oriented x 3, not in distress, speaks in sentences with no effort or accessory muscle use Eyes- anicteric Neck- no JVD Lungs- clear breath sounds bilaterally, no rales/wheezes Heart- normal rate, regular rhythm; no murmurs Abdomen- normal bowel sounds, nondistended, soft, nontender Extremities- no pretibial edema, no calf tenderness Neuro- alert, oriented x 3; no gross focal neurologic deficits Skin- warm & dry Results & Data Results & Data ([facility]) Vital Signs (Past 12 Hours) Vital Signs Temp Pulse Pulse Pulse Resp BP BP 02/10/22 15:45 57 L 18 138/73 02/10/22 15:00 55 L 02/10/22 11:00 36.7 C 71 22 107/66 02/10/22 07:40 36.7 C 83 18 124/63 02/10/22 07:00 78 Pulse Ox 02/10/22 15:45 97 02/10/22 15:00 02/10/22 11:00 96 02/10/22 07:40 97 02/10/22 07:00 all noted and reviewed including below
[2022-02-11] MEDS: METOPROLOL TARTRATE 25 MG TAB PO SCH ×2 (08:57→20:22)
[2022-02-11] MEDS: ASPIRIN 81 MG ECTAB PO SCH (08:58)
[2022-02-11] MEDS: TICAGRELOR 90 MG TAB PO SCH ×2 (08:58→20:20)
[2022-02-11] MEDS: ATORVASTATIN 40 MG TAB PO SCH (08:58)
[2022-02-11] MEDS: FOLIC ACID 1 MG TAB PO SCH (08:58)
[2022-02-11] MEDS: THIAMINE HCL 100 MG TAB PO SCH (08:59)
[2022-02-11] MEDS: ENOXAPARIN INJ 40 MG/0.4 ML SYR SQ SCH (08:59)
[2022-02-11] MEDS: NICOTINE 21 MG/24 HR TDSY TD SCH (08:59)
[2022-02-11] MEDS: lisinopril 2.5 MG TAB PO SCH (08:59)
[2022-02-11] MEDS: DOCUSATE SODIUM SYRUP 100 MG/10 ML UDC PO SCH ×2 (09:00→20:19)
--- NOTE | 2022-02-11 16:04 | Hospitalist Progress Note ---
Date of Service February 11, 2022 Assessment & Plan (1) Cardiac arrest: Plan: per Dr. Chan's notes with addendum: Cardiac Arrest Posterior STEMI S/P PCI (ROBIN to proximal circumflex) Cardiogenic shock Ischemic cardiomyopathy Coronary artery disease Prolonged QTC --ECHO: Normal LV size, borderline concentric LVH, EF 45 to 50%, akinetic inferolateral wall. Moderately hypokinetic basal to mid lateral wall. No significant valvular pathology. Normal RV size and function. Pressors weaned off Lipid Panel: Normal Completed therapeutic hypothermia protocol Appreciate doctor of optometry, cardiology input Continue aspirin, Brilinta, statin, Metoprolol Monitor I's and O's, daily weight IV Lasix as needed Monitor volume status Started on lisinopril Needs follow-up with cardiology upon discharge 02/11 Patient remains stable Tolerating medications continue cardiac medications Acute Respiratory failure secondary to cardiac arrest S/P Intubation Vent support as per ICU team EEG suggestive of anoxic encephalopathy Reorient frequently Chest x-ray suggestive of pulmonary vascular congestion Normal procalcitonin IV Lasix as needed Avoid benzos as able Hypoxia resolved Saturating well on room air 02/11 Remains on room air No respiratory symptoms Dysphagia Speech therapy evaluation Aspiration precautions No overt signs of aspiration per RN Tolerating diet well Acute metabolic encephalopathy Likely due to anoxia, delirium EEG suggestive of anoxic encephalopathy Appreciate Neurology Input Reorient frequently Zyprexa as needed 02/11 Oriented x3 Calm, cooperative Follows instructions Requested PT and OT reevaluation: Pending Acute kidney injury Hypokalemia Replace electrolytes as needed Received gentle IV fluids Monitor renal function Avoid nephrotoxic agents as able Cr back to baseline 02/11 resolved Alcohol use disorder Tobacco use disorder Counseled to quit drinking, smoking Started on thiamine, folic acid At risk [facility] protocol Nicotine patch 02/11 no signs of overt withdrawal COVID 19 Exposure Patient's Sister visited the patient yesterday who was tested positive today Re-test for COVID--> on Monday, 5 days after exposure after discussed with Infection Control Committee No overt symptoms of COVID infection at this time - No cough, loss of taste or smell, fevers or chills -Repeat COVID test tomorrow Hyperglycemia HbA1c 5.5 Ongoing tobacco abuse Counseled to quit as able DVT Px: Lovenox SQ Code Status Full code Disposition PT/OT: Pending Repeat COVID test tomorrow Admission and Anticipated Discharge Date Admission Date: February 02, 2022 Subjective Follow-up for status post cardiac arrest, etc. Seen resting in chair, watching TV, comfortable States he feels fine overall Oriented x3, comfortable, answers all questions appropriately Denies chest pain, shortness of breath, palpitations, dizziness Ambulating in the room with no problems Denies cough, fevers or chills, loss of taste or smell No other symptoms Review of Systems Review of Systems: all noted and negative except for above Physical Exam Physical Exam: General- oriented x 2, not in distress, speaks in sentences with no effort or accessory muscle use Eyes- anicteric Neck- no JVD Lungs- clear BS bilaterally, no rales/wheezes Heart- normal rate, regular rhythm; no murmurs Abdomen- normal bowel sounds, nondistended, soft, nontender Extremities- no pretibial edema, no calf tenderness Neuro- alert, oriented x 3; no gross focal neurologic deficits Skin- warm & dry Results & Data Results & Data ([facility]) Vital Signs (Past 12 Hours) Vital Signs Temp Pulse Pulse Pulse Resp BP Pulse Ox 02/11/22 15:29 36.7 C 70 21 122/69 95 02/11/22 15:00 58 L 02/11/22 12:00 75 22 111/60 94 02/11/22 07:22 36.9 C 73 22 142/76 H 93 02/11/22 07:00 90 02/11/22 04:18 36.8 C 81 18 129/57 L 95 all noted and reviewed including below
[2022-02-12] MEDS: DOCUSATE SODIUM SYRUP 100 MG/10 ML UDC PO SCH (08:50)
[2022-02-12] MEDS: NICOTINE 21 MG/24 HR TDSY TD SCH (08:51)
[2022-02-12] MEDS: TICAGRELOR 90 MG TAB PO SCH (08:51)
[2022-02-12] MEDS: FOLIC ACID 1 MG TAB PO SCH (08:51)
[2022-02-12] MEDS: THIAMINE HCL 100 MG TAB PO SCH (08:52)
[2022-02-12] MEDS: ASPIRIN 81 MG ECTAB PO SCH (08:52)
[2022-02-12] MEDS: lisinopril 2.5 MG TAB PO SCH (08:52)
[2022-02-12] MEDS: METOPROLOL TARTRATE 25 MG TAB PO SCH (08:52)
[2022-02-12] MEDS: ENOXAPARIN INJ 40 MG/0.4 ML SYR SQ SCH (08:53)
[2022-02-12] MEDS: ATORVASTATIN 40 MG TAB PO SCH (08:53)
--- NOTE | 2022-02-12 10:51 | Hospitalist Progress Note ---
Date of Service February 12, 2022 Assessment & Plan (1) Cardiac arrest: Plan: per Dr. Chan's notes with addendum: Cardiac Arrest Posterior STEMI S/P PCI (ROBIN to proximal circumflex) Cardiogenic shock Ischemic cardiomyopathy Coronary artery disease Prolonged QTC --ECHO: Normal LV size, borderline concentric LVH, EF 45 to 50%, akinetic inferolateral wall. Moderately hypokinetic basal to mid lateral wall. No significant valvular pathology. Normal RV size and function. Pressors weaned off Lipid Panel: Normal Completed therapeutic hypothermia protocol Appreciate construction assistant, cardiology input Continue aspirin, Brilinta, statin, Metoprolol Monitor I's and O's, daily weight IV Lasix as needed Monitor volume status Started on lisinopril Needs follow-up with cardiology upon discharge 02/12 Patient remains stable Tolerating medications well continue cardiac medications Discharge medications: Brilinta 90 mg twice a day and aspirin 81 mg daily times at least 1 year Metoprolol 12.5 mg twice a day Lisinopril 2.5 mg daily Lipitor 80 mg daily Patient needs to establish with talent development analyst and follow-up in 2 weeks Acute Respiratory failure secondary to cardiac arrest S/P Intubation Vent support as per ICU team EEG suggestive of anoxic encephalopathy Reorient frequently Chest x-ray suggestive of pulmonary vascular congestion Normal procalcitonin IV Lasix as needed Avoid benzos as able Hypoxia resolved Saturating well on room air 02/12 Remains on room air No respiratory symptoms Dysphagia Speech therapy evaluation Aspiration precautions No overt signs of aspiration per RN Tolerating diet well Acute metabolic encephalopathy Likely due to anoxia, delirium EEG suggestive of anoxic encephalopathy Appreciate Neurology Input Reorient frequently Zyprexa as needed 02/12 Oriented x3 Calm, cooperative Follows instructions Requested PT and OT reevaluation: Recommend to return home Acute kidney injury Hypokalemia Replace electrolytes as needed Received gentle IV fluids Monitor renal function Avoid nephrotoxic agents as able Cr back to baseline 02/12 resolved Alcohol use disorder Tobacco use disorder Counseled to quit drinking, smoking Started on thiamine, folic acid At risk [facility] protocol Nicotine patch 02/12 no signs of overt withdrawal COVID 19 Exposure Patient's Sister visited the patient yesterday who was tested positive today Re-test for COVID--> on Monday, 5 days after exposure after discussed with Infection Control Committee No overt symptoms of COVID infection at this time - No cough, loss of taste or smell, fevers or chills -Repeat COVID test: Negative Hyperglycemia HbA1c 5.5 Ongoing tobacco abuse Counseled to quit as able DVT Px: Lovenox SQ Code Status Full code Disposition Return home Follow-up with primary care physician in 1 week Follow-up with talent development analyst in 2 weeks Admission and Anticipated Discharge Date Admission Date: February 02, 2022 Subjective Follow-up for status postcardiac arrest, etc. Seen resting in bedside chair, comfortable, in good spirits States he feels fine overall no chest pain, dyspnea, palpitations, dizziness No cough, shortness of breath, loss of taste or smell, fevers or chills, arthralgias or myalgias Ambulating in the room with no problems States he is ready and would like to be discharged today Review of Systems Review of Systems: all noted and negative except for above Physical Exam Physical Exam: General- oriented x 3, not in distress, speaks in sentences with no effort or accessory muscle use Eyes- anicteric Neck- no JVD Lungs- clear breath sounds bilaterally No wheezing or crackles noted Heart- normal rate, regular rhythm; no murmurs Abdomen- normal bowel sounds, nondistended, soft, nontender Extremities- no pretibial edema, no calf tenderness Neuro- alert, oriented x 3; no gross focal neurologic deficits Skin- warm & dry Results & Data Results & Data ([facility]) Vital Signs (Past 12 Hours) Vital Signs Temp Pulse Pulse Pulse Resp BP Pulse Ox 02/12/22 07:55 36.9 C 79 20 134/67 96 02/12/22 07:00 61 02/12/22 03:00 36.6 C 81 22 134/73 96 02/11/22 23:00 37.0 C 77 16 129/62 95 all noted and reviewed including below
--- NOTE | 2022-02-12 16:27 | Discharge Summary ---
Date of Service February 12, 2022 Admission HPI Per Admitting Provider History obtained from records and sales porter. Unable to obtain history from patient secondary to intubated state. Medical history significant for ongoing tobacco abuse. Patient was found by bystanders in front of a local halfway. 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 CPR done by bystanders. Upon EMS arrival, defibrillation done and epinephrine given resulting in ROSC. Amiodarone and second defibrillation done en route to the ER. Patient subsequently intubated at the ER. Patient subsequently intubated at the ER. Epinephrine drip initiated for hypotension and bradycardia. Hypothermia protocol initiated at the ER. Heart alert with suspicion of posterior STEMI on EKG. Subsequent cardiac cath and PCI done with note of acute 100% proximal circumflex occlusion. Patient currently in the ICU. Medical History as above Surgical History, Family History, Personal/Social history : Could not be obtained in detail secondary to intubated state Admission Exam Per Admitting Provider GENERAL: uncomfortable, minimal respiratory distress SKIN: Normal color, warm HEENT: [place] palpebral conjunctivae, no ptosis, dry buccal mucosa, intubated NECK : Supple, no tenderness CHEST : Decreased breath sounds, expiratory wheezes, no tenderness HEART : RRR, no obvious murmurs ABDOMEN: Some distention, nontender EXTREMITIES : No LE swelling/tenderness, no other conspicuous deformities noted NEUROLOGIC : Restless, incoherent, no facial asymmetry, gait and stance not assessed Principal Diagnosis STATUS POSTCARDIAC ARREST ST ELEVATION MYOCARDIAL INFARCTION STATUS POST DRUG-ELUTING STENT PLACEMENT TO THE RCA Discharge Exam General- oriented x 3, not in distress, speaks in sentences with no effort or accessory muscle use Eyes- anicteric Neck- no JVD Lungs- clear breath sounds bilaterally No wheezing or crackles noted Heart- normal rate, regular rhythm; no murmurs Abdomen- normal bowel sounds, nondistended, soft, nontender Extremities- no pretibial edema, no calf tenderness Neuro- alert, oriented x 3; no gross focal neurologic deficits Skin- warm & dry Discharge Data Allergies Allergy/AdvReac Type Severity Reaction Status Date / Time No Known Allergies Allergy Unverified 02/03/22 08:53 Consultations 02/02/22 18:24 Consult Jig Mill Operator Stat 02/02/22 23:25 Consult Cardiology Routine 02/07/22 13:36 Consult Neurology Routine Procedures Performed Operation Date: 02/02/22 18:30 Actual Procedures p Cineradiography w/Routine Exam - George Rucker MD p Aspiration/PCI w/ROBIN for Stemi - George Rucker MD s Ultrasound Vascular Access - George Rucker MD s Arterial ATP Cath Insertion - MD tejas Heard Cath, Right and Left Heart - George Rucker MD Ordered Studies 02/02/22 18:29 CT head/brain wo con Stat 02/02/22 18:36 CL Cath Imgs for PACS use only Stat 02/02/22 20:37 US point of care ultrasound Urgent Hospital Course (1) Cardiac arrest: per Dr. Chan's notes with addendum: Cardiac Arrest Posterior STEMI S/P PCI (ROBIN to proximal circumflex) Cardiogenic shock Ischemic cardiomyopathy Coronary artery disease Prolonged QTC --ECHO: Normal LV size, borderline concentric LVH, EF 45 to 50%, akinetic inferolateral wall. Moderately hypokinetic basal to mid lateral wall. No significant valvular pathology. Normal RV size and function. Pressors weaned off Lipid Panel: Normal Completed therapeutic hypothermia protocol 02/12 Patient remained stable Tolerating medications well Discharge medications: Brilinta 90 mg twice a day and aspirin 81 mg daily times at least 1 year Metoprolol 12.5 mg twice a day Lisinopril 2.5 mg daily Lipitor 80 mg daily Patient needs to establish with bake room worker and follow-up in 2 weeks Acute Respiratory failure secondary to cardiac arrest S/P Intubation EEG suggestive of anoxic encephalopathy Chest x-ray suggestive of pulmonary vascular congestion Normal procalcitonin Hypoxia resolved Saturating well on room air 02/12 Remains on room air No respiratory symptoms Dysphagia Speech therapy evaluation Aspiration precautions No overt signs of aspiration per RN Tolerating diet well Acute metabolic encephalopathy Likely due to anoxia, delirium EEG suggestive of anoxic encephalopathy Neurologist consulted 02/12 Mental status gradually improved Upon discharge, oriented x3 Calm, cooperative Follows instructions RPT and OT reevaluation: Recommend to return home Acute kidney injury Hypokalemia Replace electrolytes as needed Received gentle IV fluids Cr back to baseline Alcohol use disorder Tobacco use disorder Counseled to quit drinking, smoking Started on thiamine, folic acid At risk [facility] protocol Nicotine patch 02/12 no signs of overt withdrawal COVID 19 Exposure Patient's Sister visited the patient yesterday who was tested positive No overt symptoms of COVID infection at this time - No cough, loss of taste or smell, fevers or chills -Repeat COVID test: Negative Ongoing tobacco abuse Counseled to quit as able DVT Px: Lovenox SQ given Code Status Full code Disposition Return home Follow-up with primary care physician in 1 week Follow-up with bake room worker in 2 weeks plan of care discussed with patient and his in detail and at length all questions answered they are understanding, agreeable, comfortable with the plan of care Total Time Total Time Spent Total Time Spent (In Minutes): >30 minutes Discharge Plan Discharge Items Patient Disposition: Home - Self-Care Reason For Visit: CARDIAC ARREST Discharge Diagnosis: ST elevation myocardial infarction Status post drug-eluting stent placement to the RCA Status post cardiac arrest Activity: As commented below Activity Comment: No heavy exertion, increase gradually as tolerated, ambulate carefully Lifting: Wait until after follow-up appointment Exercise/Sports: Wait until after follow-up appointment Non-emergency contact: Primary Care Provider Call non-emergency contact if: you have any medication questions, your symptoms worsen, your pain is not controlled, your pain is worsening, your pain is unusual for you, your pain is concerning for you and you have a fever Follow-up/Referrals: PCP,NO [Primary Care Provider] - Diet: Heart Healthy Addtl Attending Provider Instructions: PLEASE REFER TO YOUR NEW MEDICATION LIST AND FOLLOW INSTRUCTIONS CAREFULLY. YOUR NEW MEDICATIONS INCLUDE: Brilinta, Aspirin-to prevent heart attack, to prevent blockage of cardiac stent -You need to take these medications for at least 1 year, every single day to prevent stent blockage/heart attack Metoprolol, lisinopril-for blood pressure control, heart attack prevention Lipitor-anticholesterol medication, heart attack prevention PLEASE CALL YOUR PRIMARY CARE PHYSICIAN OR RETURN TO THE ER IF WITH WORSENING OF SYMPTOMS, INCLUDING Chest pain, shortness of breath, dizziness, palpitations. FOLLOW UP WITH PRIMARY CARE PHYSICIAN WITHIN 1 WEEK. YOU NEED TO ESTABLISH WITH A LOCAL FLIGHT READINESS TECHNICIAN AND FOLLOW-UP WITHIN 2 WEEKS. PLEASE HAVE YOUR PRIMARY CARE PHYSICIAN AND FLIGHT READINESS TECHNICIAN CONTACT [facility] TO OBTAIN YOUR RECORDS FROM THE HOSPITAL. Pending Studies at Discharge: No Stand-Alone Forms: My [facility] [employer], Smoking Cessation Medications and DC Order Prescriptions: New atorvastatin 40 mg Tablet 80 mg PO QAM 30 Days Qty: 60 RF: 2 aspirin 81 mg Tablet,Delayed Release (Dr/Ec) 81 mg PO QAM 30 Days Qty: 30 RF: 2 lisinopril 2.5 mg Tablet 2.5 mg PO QAM 30 Days Qty: 30 RF: 2 metoprolol tartrate 25 mg Tablet 12.5 mg PO BID 30 Days Qty: 30 RF: 2 Brilinta 90 mg Tablet 90 mg PO BID 30 Days Qty: 60 RF: 2 Discharge Orders: Discharge Order (Routine); Ordered 02/12/22 Ordered By: Kyler Eden Admission Data Admit Date/Time: 02/02/22 18:46 Attending Provider: Kyler Eden Admit Provider: Luis Son Primary Care Provider: PCP,NO Other Providers: Luis Son ; George Rucker ; Annamarie Acosta ; Be Pinto ; Annamarie Gleason ; Sj Palomares ; Thania Jenkins ; Salvador Chan Other Interventions: Discharge Summary Assessment (RN) Last Done: 02/12/22 12:15
== END 2022-02-12 14:53 | disposition home or self-care (01) | DRG 246 ==
LOC: ED 17:54 → CC 18:45 → 1E 18:46 → SUATTDRO 18:46 → 2S 02-05 17:37 → 2E 02-08 16:55